=== PATIENT | female | born 1945 | race Caucasian/White ===

== ENCOUNTER → 2016-06-10 | Outpatient (CLI) | payer MEDICARE, OTHER ==
--- NOTE | 2016-06-10 14:49 | WOMENS IMAGING REPORT ---
EXAM DESCRIPTION: BONE DENSITY HIP/SPINE COMPLETED DATE/TIME: 06/10/2016 2:03 pm REASON FOR STUDY: M89.9, DISORDER OF THE BONE Z12.31 ENCNTR SCREEN MAMMOGRAM FOR MALIGNANT NEOPLASM OF PEGGY M89.9 DISORDER OF BONE, UNSPECIFIED COMPARISON: None. TECHNIQUE: Dual-Energy X-ray Absorptiometry (DEXA) of the AP Spine and Hip. LIMITATIONS: None. FINDINGS: LUMBAR SPINE: The bone mineral density (BMD) measured from L1-L4 in the AP projection correlates with a T-score of +2.5, which is normal as defined by the World Health Organization. Please note that the AP assessmen t includes vertebral body endplate sclerosis and sclerosis along the posterior elements HIP: The bone mineral density (BMD) measured in the left femoral neck at the hip correlates with a T-score of -1.0, which is osteopenic as defined by the World Health Organization. COMMENT: The World Health Organization defines low BMD as follows: T-score: Normal: Greater than -1.0 Osteopenia: Between -1.0 and -2.5 Osteoporosis: Less than -2.5 without fractures Established osteoporosis: Less than -2.5 with fractures In general, you may wish to consider: Diagnosis Treatment Follow-up DEXA Normal BMD Prevention 2-3 years Osteopenia Prevention/Therapy 1-2 years Osteoporosis Therapy Yearly TECHNICAL DOCUMENTATION: JOB ID: [id number] [employer]- All Rights Reserved
--- NOTE | 2016-06-10 15:17 | WOMENS IMAGING REPORT ---
EXAM DESCRIPTION: BILAT SCREENING MAMMO W/CAD COMPLETED DATE/TIME: 06/10/2016 2:04 pm REASON FOR STUDY: Z12.31, ROUTINE SCREENING MAMMO Z12.31 ENCNTR SCREEN MAMMOGRAM FOR MALIGNANT NEOP LASM OF PEGGY M89.9 DISORDER OF BONE, UNSPECIFIED COMPARISON: 2012 TECHNIQUE: Standard craniocaudal and mediolateral oblique views of each breast recorded using digita l acquisition. LIMITATIONS: None. FINDINGS: No masses, calcifications or architectural distortion. No areas of suspicion. Read with the assistance of CAD. .[facility] - R2 Cenova Version 1.3 .[facility] - R2 Cenova Version 1.3 .[facility] - R2 Cenova Version 2.4 .[facility] - R2 Cenova Version 2.4 .[facility] - R2 [employer] Version 9.2 BREAST DENSITY: b. There are scattered areas of fibroglandular density. BIRAD: 1 NEGATIVE RECOMMENDATION: ROUTINE SCREENING COMMENT: PATIENT NOTIFIED BY LETTER. The [employer] recommends an annual screening mammogram for women aged 40 years or over. Each patient will receive a reminder prior to the anniversary date of her mammogram. The [employer] (ACR) has developed recommendations for screening MRI of the breast s in certain patient populations, to be used in conjunction with mammography. Breast MRI surveillanc e may be appropriate for women with more than 20% lifetime risk of developing breast cancer as deter mined by genetic testing, significant family history of the disease, or history of mantle radiation f or Hodgkins Disease. ACR Practice Guidelines 2008. TECHNICAL DOCUMENTATION: FINDING NUMBER: (1) ASSESSMENT: (1) JOB ID: [id number] [employer]- All Rights Reserved
== END ==
LOC: WI 13:21
PROVIDERS: ATTEND Student in an Organized Health Care Education/Training Program
DX: Z12.31 Encounter for screening mammogram for malignant neoplasm of breast (principal); M89.9 Disorder of bone, unspecified
CPT/HCPCS: 77080; G0202; 77067

== ENCOUNTER → 2017-08-31 | Outpatient (CLI) | payer MEDICARE, OTHER ==
--- NOTE | 2017-09-01 10:29 | RADIOLOGY REPORT (SQ) ---
EXAM DESCRIPTION: LUMBAR SPINE COMPLETE COMPLETED DATE/TIME: 08/31/2017 5:35 pm REASON FOR STUDY: LOW BACK PAIN M54.5 LOW BACK PAIN COMPARISON: None. NUMBER OF VIEWS: Five views including obliques. TECHNIQUE: AP, lateral, oblique, and sacral radiographic images acquired of the lumbar spine. LIMITATIONS: None. FINDINGS: MINERALIZATION: Normal. SEGMENTATION: Normal. No transitional anatomy. ALIGNMENT: There is a very minimal lumbar scoliosis convexed to the left. VERTEBRAE: Maintained height. No fracture or worrisome bone lesion. DISCS: Multilevel disc space narrowing with osteophytes. POSTERIOR ELEMENTS: Pedicles and facets are intact. No pars defect or posterior arch defects. Facet arthropathy is present. HARDWARE: None in the spine. PARASPINAL SOFT TISSUES: Normal. PELVIS: Intact as visualized. No fractures or worrisome bone lesions. SI joints intact. OTHER: Vascular calcifications are identified in the abdominal aorta IMPRESSION: SPONDYLOSIS WITHOUT BONE LESION OR FRACTURE. TECHNICAL DOCUMENTATION: JOB ID: [id number] [employer]- All Rights Reserved Reading location - IP/workstation name: [email or web address]
--- NOTE | 2017-09-01 10:33 | RADIOLOGY REPORT (SQ) ---
EXAM DESCRIPTION: SACRUM AND COCCYX COMPLETED DATE/TIME: 08/31/2017 5:35 pm REASON FOR STUDY: LOW BACK PAIN M54.5 LOW BACK PAIN COMPARISON: None. NUMBER OF VIEWS: Three views. TECHNIQUE: AP, lateral, and tilt views of the sacrum and coccyx. LIMITATIONS: None. FINDINGS: MINERALIZATION: Normal. BONES: No acute fracture or dislocation. There is some mild bony sclerosis adjacent to the sacroilia c joints. SOFT TISSUES: No soft tissue swelling. No foreign body. OTHER: No other significant finding. IMPRESSION: There is some mi bony sclerosis adjacent to the SI joints bilaterally consistent with de generative changes. No other significant bony abnormalities were identified. Other findings as note d above TECHNICAL DOCUMENTATION: JOB ID: [id number] [employer]- All Rights Reserved Reading location - IP/workstation name: [email or web address]
== END ==
LOC: OD 16:28
PROVIDERS: ATTEND Student in an Organized Health Care Education/Training Program
DX: M54.5 Low back pain (principal); M47.896 Other spondylosis, lumbar region
CPT/HCPCS: 72110; 72220

== ENCOUNTER 2017-10-04 15:33 | Inpatient (IN) | payer MEDICARE, OTHER ==
[2017-10-04] MEDS ORDERED: DEXAMETHASONE SOD PHOS INJ 10 MG/1 ML VIAL IV ONE (16:21)
--- NOTE | 2017-10-04 16:28 | ER Document Report ---
ED Medical Screen (RME) - General Chief Complaint: Abnormal Lab Results Stated Complaint: ABNORMAL LABS Time Seen by Provider: 10/04/17 16:05 Information source: Patient, DrLeonel Office, [facility] Records, Outside Facility Records Notes: 72-year-old female presents after her oncologist who is concerned that there may be a new sacral mass. Dr Davis reports that the patient is experiencing worsening pain and has new neuro deficits. He is requesting MRI imaging of the lumbar spine. Patient did have a CAT scan yesterday. I have greeted and performed a rapid medical assessment of the patient. A comprehensive evaluation and assessment will be performed by another ED provider. Medical decision making, lab review/xrays if performed will be reviewed by the ED provider assuming care of the patient. PHYSICAL EXAMINATION: GENERAL: Well-appearing, well-nourished and in no acute distress. HEAD: Atraumatic, normocephalic. EYES: Pupils equal round extraocular movements intact, conjunctiva are normal. ENT: Nares patent NECK: Normal range of motion LUNGS: No respiratory distress Musculoskeletal: Limited range of motion secondary to pain NEUROLOGICAL: Normal speech, PSYCH: Normal mood, normal affect. SKIN: Warm, Dry, normal turgor, no rashes or lesions noted. TRAVEL OUTSIDE OF THE [place] IN LAST 30 DAYS: No - HPI Onset: Other Onset/Duration: Persistent, Worse Quality of pain: Burning Severity: Moderate Associated Symptoms: None Exacerbated by: Movement Relieved by: Denies Similar symptoms previously: Yes Recently seen / treated by doctor: Yes - Related Data Smoking: Non-smoker Frequency of alcohol use: None Drug Abuse: None Allergies/Adverse Reactions: No Known Allergies Allergy (Unverified 10/04/17 15:35) Past Medical History - Social History Chew tobacco use (# tins/day): No Frequency of alcohol use: None Drug Abuse: None Renal/ Medical History: Denies: Hx Peritoneal Dialysis Physical Exam - Vital signs Vitals: Temp Pulse Resp BP Pulse Ox 98.3 F 70 16 117/62 94 10/04/17 15:37 10/04/17 15:37 10/04/17 15:37 10/04/17 15:37 10/04/17 15:37 Course - Vital Signs Vital signs: Temp Pulse Resp BP Pulse Ox 98.3 F 70 16 117/62 94 10/04/17 15:37 10/04/17 15:37 10/04/17 15:37 10/04/17 15:37 10/04/17 15:37 - Laboratory Result Diagrams: 10/04/17 16:54 10/04/17 16:54 Doctor's Discharge - Discharge Referrals: KATHY LOPEZ MD [Primary Care Provider] - Follow up as needed
--- NOTE | 2017-10-04 16:57 | ER Document Report ---
ED General - General Chief Complaint: Abnormal Lab Results Stated Complaint: ABNORMAL LABS Time Seen by Provider: 10/04/17 16:05 Notes: The patient is a 72-year-old female, PMHx thyroidectomy, presents for worsening lower back pain over the past 2 days. She had an outpatient CT scan performed yesterday by her primary care physician that showed a disruptive lytic lesion involving the S1 vertebral body, which appears to be also involving the nerve roots at this level of the left side. She is supposed to see Dr. Humphries soon, but she was sent to the ER for an MRI of the spine and IV Decadron due to concern about possible cauda equina. Patient denies change in bowel or bladder , saddle anesthesia or back injury. Unsure of a primary source of cancer. TRAVEL OUTSIDE OF THE [place] IN LAST 30 DAYS: No - Related Data Allergies/Adverse Reactions: No Known Allergies Allergy (Unverified 10/04/17 15:35) Past Medical History - General Information source: Patient, Dr. Dale, [facility] Records, Outside Facility Records - Social History Smoking Status: Never Smoker Chew tobacco use (# tins/day): No Frequency of alcohol use: None Drug Abuse: None Family History: Reviewed & Not Pertinent Patient has suicidal ideation: No Patient has homicidal ideation: No Renal/ Medical History: Denies: Hx Peritoneal Dialysis Review of Systems - Review of Systems Notes: REVIEW OF SYSTEMS: CONSTITUTIONAL: -fevers, -chills EENT: -eye pain, -difficulty swallowing, -nasal congestion CARDIOVASCULAR: -chest pain, -syncope. RESPIRATORY: -cough, -SOB GASTROINTESTINAL: -abdominal pain, -nausea, -vomiting, -diarrhea GENITOURINARY: -dysuria, -hematuria MUSCULOSKELETAL: +back pain, -neck pain SKIN: -rash or skin lesions. HEMATOLOGIC: -easy bruising or bleeding. LYMPHATIC: +right neck with swollen, enlarged gland. NEUROLOGICAL: -altered mental status or loss of consciousness, -headache, + tingling down bilateral legs PSYCHIATRIC: -anxiety, -depression. ALL OTHER SYSTEMS REVIEWED AND NEGATIVE. Physical Exam - Vital signs Vitals: Temp Pulse Resp BP Pulse Ox 98.3 F 70 16 117/62 94 10/04/17 15:37 10/04/17 15:37 10/04/17 15:37 10/04/17 15:37 10/04/17 15:37 - Notes Notes: PHYSICAL EXAMINATION: GENERAL: Uncomfortable. HEAD: Atraumatic, normocephalic. EYES: Pupils equal round and reactive to light, extraocular movements intact, sclera anicteric, conjunctiva are normal. ENT: nares patent, oropharynx clear without exudates. Moist mucous membranes. NECK: Normal range of motion, supple with a non-tender right-sided anterior neck mass. LUNGS: Breath sounds clear to auscultation bilaterally and equal. No wheezes rales or rhonchi. HEART: Regular rate and rhythm without murmurs ABDOMEN: Soft, nontender, normoactive bowel sounds. No guarding, no rebound. No masses appreciated. EXTREMITIES: Normal range of motion, no pitting or edema. No cyanosis. Strong distal pulses. BACK: Tenderness over lower back. NEUROLOGICAL: Cranial nerves grossly intact. Normal speech. Normal motor exams. SKIN: Warm, Dry, normal turgor, no rashes or lesions noted. Course - Re-evaluation Re-evalutation: Patient presents with a few days of worsening lower back pain. An outpatient CT scan showed concern for a lytic lesion and possible cauda equina. Patient is not having any saddle anesthesia, urinary or bowel incontinence. MRI ordered , which shows extensive metastases in her sacrum, but no evidence of cauda equina. Unsure of a primary cancer, but patient has had a thyroidectomy and noticed a lump above her right clavicle. Spoke to patient and daughter about this diagnosis. They were provided a copy of the MRI report. 10/04/17 19:[address] Humphries. He will see patient as an outpatient or inpatient, depending on patient's preference. Patient is still in severe pain and would like to be admitted for further evaluation and treatment of her metastatic lesions and for pain control. Her PMD is Dr. Manzano. Dr. Humphries is requesting if CA125, CEA and CA19-9 could be added, as well as a soft tissue neck CT. CT Chest/A/P also ordered to assess for primary source of cancer. 10/04/17 19:[address] Yu and will admit patient as Inpatient to Medical floor for pain control for intractable back pain from new metastases. - Vital Signs Vital signs: Temp Pulse Resp BP Pulse Ox 98.3 F 70 11 L 130/58 H 94 10/04/17 15:37 10/04/17 15:37 10/04/17 22:00 10/04/17 21:01 10/04/17 22:00 - Laboratory Result Diagrams: 10/04/17 16:54 10/04/17 16:54 Laboratory results interpreted by me: 10/04/17 10/04/17 10/04/17 16:54 16:54 16:54 WBC 10.9 H Plt Count 476 H Potassium 5.1 H BUN 24 H Glucose 140 H Direct Bilirubin 0.5 H AST 40 H Alkaline Phosphatase 198 H Carcinoembryonic Ag 3.3 H - Diagnostic Test Radiology reviewed: Image reviewed, Reports reviewed Radiology results interpreted by me: MRI Lumbar Spine: 1. FAIRLY EXTENSIVE ABNORMAL MARROW SIGNAL AND MARROW REPLACEMENT IN THE UPPER SACRUM MOST CONSISTENT WITH METASTATIC INVOLVEMENT. 2. MULTILEVEL CHRONIC DEGENERATIVE CHANGES IN THE LUMBAR SPINE DESCRIBED. 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
[2017-10-04] MEDS ORDERED: HYDROCODONE/ACETAMINOPHEN 5-325 MG TABLET PO ONE (17:12)
[2017-10-04] MEDS ORDERED: DIAZEPAM 5 MG TABLET PO ONE (17:13)
[2017-10-04 17:30] LABS: ABSOLUTE BASOPHILS # (AUTO) 0.1 10^3/uL (0.0-0.2); ABSOLUTE EOSINOPHILS # (AUTO) 0.3 10^3/uL (0.0-0.6); ABSOLUTE LYMPHOCYTES (AUTO) 1.8 10^3/uL (0.5-4.7); ABSOLUTE MONOCYTES (AUTO) 0.4 10^3/uL (0.1-1.4); ABSOLUTE NEUT (AUTO) 8.2 10^3/uL (1.7-8.2); BASOPHILS % (AUTO) 0.6 % (0-2); EOSINOPHILS % (AUTO) 3.2 % (0-6); HEMATOCRIT 38.6 % (36.0-47.0); HEMOGLOBIN 13.1 g/dL (12.0-15.5); LYMPHOCYTES % (AUTO) 16.4 % (13-45); MEAN CORPUSCULAR HEMOGLOBIN 30.6 pg (27.0-33.4); MEAN CORPUSCULAR HGB CONC 33.9 g/dL (32.0-36.0); MEAN CORPUSCULAR VOLUME 90 fl (80-97); MONOCYTES % (AUTO) 4.1 % (3-13); PLATELET COUNT 476 10^3/uL (150-450); RED BLOOD COUNT 4.28 10^6/uL (3.72-5.28); RED CELL DISTRIBUTION WIDTH 13.7 % (11.5-14.0); SEGMENTED NEUTROPHILS % (AUTO) 75.7 % (42-78); TOTAL CELLS COUNTED % (AUTO) 100 %; WHITE BLOOD COUNT 10.9 10^3/uL (4.0-10.5)
[2017-10-04 17:44] LABS: ALANINE AMINOTRANSFERASE 30 U/L (9-52); ALBUMIN 4.2 g/dL (3.5-5.0); ALKALINE PHOSPHATASE 198 U/L (38-126); ANION GAP 16 (5-19); ASPARTATE AMINO TRANSFERASE 40 U/L (14-36); BILIRUBIN,DIRECT 0.5 mg/dL (0.0-0.4); BILIRUBIN,TOTAL 0.6 mg/dL (0.2-1.3); BLOOD UREA NITROGEN 24 mg/dL (7-20); CALCIUM 9.9 mg/dL (8.4-10.2); CARBON DIOXIDE 29 mmol/L (22-30); CHLORIDE 98 mmol/L (98-107); GLUCOSE 140 mg/dL (75-110); POTASSIUM 5.1 mmol/L (3.6-5.0); SODIUM 142.9 mmol/L (137-145); TOTAL PROTEIN 7.3 g/dL (6.3-8.2)
--- NOTE | 2017-10-04 19:14 | RADIOLOGY REPORT (SQ) ---
EXAM DESCRIPTION: MRI LUMBAR SPINE COMBO COMPLETED DATE/TIME: 10/04/2017 6:56 pm REASON FOR STUDY: concern for mets/ new neuro sx COMPARISON: None. TECHNIQUE: Sagittal and Axial imaging includes T1, T1 post gadolinium, T2, STIR and gradient echo se quences. Coronal T2/HASTE imaging. Additional coronal images acquired of the sacrum as well. CONTRAST TYPE AND DOSE: 20 mL Prohance. RENAL FUNCTION: GFR > 60. LIMITATIONS: None. FINDINGS: VISUALIZED UPPER ABDOMEN: Limited evaluation. No acute or suspicious findings suggested. SEGMENTATION: No transitional anatomy. The lowest well-developed disc space is labeled L5-S1. ALIGNMENT: Grade 1 anterolisthesis of L 3 on L4. Mild S-shaped scoliosis. VERTEBRAE: Intact. No fractures. BONE MARROW: There is abnormal marrow signal involving the upper sacrum with decreased signal on T1, increased signal on T2 and STIR, and contrast enhancement. DISC SIGNAL: Decreased height and signal. POSTERIOR ELEMENTS: Generally intact. No pars defect evident. HARDWARE: None in the spine. CORD AND CONUS: Normal in size and signal intensity. Conus at the appropriate level. SOFT TISSUES: No aortic aneurysm seen. No bulky retroperitoneal adenopathy or mass. No paraspinal mas s or fluid. L1-L2: Diffuse posterior annular disc bulge with small left paracentral disc protrusion. Moderate fa cet arthropathy. Mild spinal stenosis and exit foraminal stenosis, worse on the left. L2-L3: Minimal diffuse posterior disc bulge. Moderate facet arthropathy, worse on the left. Mild to moderate left lateral recess stenosis and mild exit foraminal stenosis. L3-L4: Mild diffuse posterior annular disc bulge. Severe facet arthropathy. Moderate to severe spin al stenosis and exit foraminal stenosis, partially due to anterolisthesis. L4-L5: Mild diffuse posterior disc bulge. Severe facet arthropathy, worse on the right. Mild to mod erate spinal stenosis and moderate to severe right exit foraminal stenosis. L5-S1: Mild posterior disc bulge. No significant spinal stenosis. Mild exit foraminal stenosis. LOWER THORACIC: Incompletely imaged. No stenosis seen. SACRUM: Visualized upper sacrum intact. ENHANCEMENT: No abnormal enhancement. OTHER: No other significant findings. IMPRESSION: 1. FAIRLY EXTENSIVE ABNORMAL MARROW SIGNAL AND MARROW REPLACEMENT IN THE UPPER SACRUM MOST CONSISTENT WITH METASTATIC INVOLVEMENT. 2. MULTILEVEL CHRONIC DEGENERATIVE CHANGES IN THE LUMBAR SPINE DESCRIBED. TECHNICAL DOCUMENTATION: JOB ID: [id number] [employer]- All Rights Reserved Reading location - IP/workstation name: [email or web address]
[2017-10-04] MEDS ORDERED: KETOROLAC TROMETHAMINE INJ/PF 30 MG/1 ML SDV IV ONE (19:31)
[2017-10-04] MEDS ORDERED: HYDROMORPHONE HCL INJ/PF 2 MG/ML AMPULE IV ONE (19:31)
[2017-10-04] MEDS ORDERED: ONDANSETRON HCL INJ/PF 4 MG/2 ML SDV IV PRN (20:03)
[2017-10-04] MEDS ORDERED: GLUCAGON,HUMAN RECOMB 1 MG INJ IM PRN (20:22)
[2017-10-04] MEDS ORDERED: DEXTROSE 40% GEL 15 GM TUBE PO PRN ×2 (20:22)
[2017-10-04] MEDS ORDERED: DEXTROSE 50%-WATER 25 GM/50 ML DISP.SYRIN IV PRN ×2 (20:22)
--- NOTE | 2017-10-04 20:33 | PDOC H&P ---
History of Present Illness Admission Date/PCP: KATHY LOPEZ MD History of Present Illness: BELLO DIAZ is a 72 year old female patient with past medical history of hypertension, diabetes mellitus, hypothyroidism, obesity presented with chief complaint of back pain. Patient reported as she started to have back pain since last Easter in the last several days it becomes increasingly worse. Patient has history of thyroidectomy which happened 10 years ago and reportedly the biopsy was negative for malignancy. Her MRI of the spine which is done today reported as followed fairly extensive abnormal marrow signal and marrow replacement in the upper sacrum most consistent with metastatic involvement. Patient also endorses unintentional weight loss of 14 pound last 2 weeks. She denied any abdominal pain or any change in her bowel habits, hematochezia or melanotic stool. No nausea, vomiting, diarrhea, fever, chills, cough, chest pain or urinary complaints. Past Medical History Cardiac Medical History: Reports: Hypertension Endocrine Medical History: Reports: Diabetes Mellitus Type 2 Past Surgical History Past Surgical History: Reports: Cholecystectomy, Orthopedic Surgery Social History Smoking Status: Never Smoker Frequency of Alcohol Use: None Drugs: None - Advance Directive Resuscitation Status: Full Code Family History Family History: Reviewed & Not Pertinent Parental Family History Reviewed: Yes Children Family History Reviewed: Yes Sibling(s) Family History Reviewed.: Yes Medication/Allergy Allergies/Adverse Reactions: No Known Allergies Allergy (Unverified 10/04/17 15:35) Review of Systems Constitutional: PRESENT: as per HPI Eyes: PRESENT: as per HPI Ears: PRESENT: as per HPI Cardiovascular: ABSENT: chest pain, dyspnea on exertion, edema, orthropnea, palpitations Respiratory: ABSENT: cough, hemoptysis Gastrointestinal: ABSENT: abdominal pain, constipation, diarrhea, hematemesis, hematochezia, nausea, vomiting Neurological: ABSENT: abnormal gait, abnormal speech, confusion, dizziness, focal weakness, syncope Physical Exam Vital Signs: Temp Pulse Resp BP Pulse Ox 98.3 F 70 16 117/62 94 10/04/17 15:37 10/04/17 15:37 10/04/17 15:37 10/04/17 15:37 10/04/17 15:37 Intake & Output 10/03/17 10/04/17 10/05/17 06:59 06:59 06:59 Weight 92.533 kg General appearance: PRESENT: mild distress Head exam: PRESENT: atraumatic, normocephalic Eye exam: PRESENT: conjunctiva pink, EOMI, PERRLA. ABSENT: scleral icterus Respiratory exam: PRESENT: clear to auscultation honey. ABSENT: rales, rhonchi, wheezes GI/Abdominal exam: PRESENT: other - Obese abdomen Neurological exam: PRESENT: alert, awake, oriented to time, oriented to situation Results Laboratory Results: 10/04/17 16:54 10/04/17 16:54 10/04/17 10/04/17 16:54 16:54 WBC 10.9 H RBC 4.28 Hgb 13.1 Hct 38.6 MCV 90 MCH 30.6 MCHC 33.9 RDW 13.7 Plt Count 476 H Seg Neutrophils % 75.7 Lymphocytes % 16.4 Monocytes % 4.1 Eosinophils % 3.2 Basophils % 0.6 Absolute Neutrophils 8.2 Absolute Lymphocytes 1.8 Absolute Monocytes 0.4 Absolute Eosinophils 0.3 Absolute Basophils 0.1 Sodium 142.9 Potassium 5.1 H Chloride 98 Carbon Dioxide 29 Anion Gap 16 BUN 24 H Creatinine 0.73 Est GFR ( Amer) > 60 Est GFR (Non-Af Amer) > 60 Glucose 140 H Calcium 9.9 Total Bilirubin 0.6 AST 40 H ALT 30 Alkaline Phosphatase 198 H Total Protein 7.3 Albumin 4.2 Impressions: Lumbar Spine MRI 10/04/17 16:21 IMPRESSION: 1. FAIRLY EXTENSIVE ABNORMAL MARROW SIGNAL AND MARROW REPLACEMENT IN THE UPPER SACRUM MOST CONSISTENT WITH METASTATIC INVOLVEMENT. 2. MULTILEVEL CHRONIC DEGENERATIVE CHANGES IN THE LUMBAR SPINE DESCRIBED. Assessment & Plan - Diagnosis (1) Intractable back pain Is this a current diagnosis for this admission?: Yes Plan: Patient has been started on Percocet for breakthrough pain and she is has been also started on fentanyl patch. (2) Hypertension Qualifiers: Hypertension type: essential hypertension Qualified Code(s): I10 - Essential (primary) hypertension Is this a current diagnosis for this admission?: Yes Plan: Continue her home medication (3) Diabetes mellitus Qualifiers: Diabetes mellitus type: type 2 Is this a current diagnosis for this admission?: Yes Plan: Hold metformin and start her on sliding scale. - Time Time Spent: 30 to 50 Minutes Critical Time spent with patient: 25-34 minutes
[2017-10-04] MEDS ORDERED: MORPHINE SULFATE 10 MG/ML INJ IV PRN (20:36)
--- NOTE | 2017-10-04 20:49 | RADIOLOGY REPORT (SQ) ---
EXAM DESCRIPTION: CT ABD/PELVIS WITH IV ONLY COMPLETED DATE/TIME: 10/04/2017 8:35 pm REASON FOR STUDY: search for primary cancer COMPARISON: None. TECHNIQUE: CT scan of the abdomen and pelvis performed using helical scanning technique with dynamic intravenous contrast injection. No oral contrast. Images reviewed with lung, soft tissue, and bone windows. Reconstructed coronal and sagittal MPR images reviewed. Delayed images for evaluation of the urinary system also acquired. All images stored on PACS. All CT scanners at this facility use dose modulation, iterative reconstruction, and/or weight based d osing when appropriate to reduce radiation dose to as low as reasonably achievable (ALARA). [facility]: Dose Right [facility]: CareDose [facility]: Dose Right [facility]: Teradose 4D [facility]: Juxta Labs CONTRAST TYPE AND DOSE: contrast/concentration: Isovue 370.00 mg/ml; Total Contrast Delivered: 100.0 ml; Total Saline Delivered: 72.0 ml RENAL FUNCTION: BUN 24 creatinine 0.73. RADIATION DOSE: CT Rad equipment meets quality standard of care and radiation dose reduction techniq ues were employed. CTDIvol: 16.5 - 21.1 mGy. DLP: 2555 mGy-cm.. LIMITATIONS: None. FINDINGS: LOWER CHEST: No significant findings. No nodules or infiltrates. LIVER: Normal size. No masses. No dilated ducts. SPLEEN: Normal size. 2.3 cm low-attenuation lesion. PANCREAS: No masses. No significant calcifications. No adjacent inflammation or peripancreatic fluid collections. Pancreatic duct not dilated. GALLBLADDER: Surgically absent. ADRENAL GLANDS: No significant masses or asymmetry. RIGHT KIDNEY AND URETER: Areas of cortical scarring. Calyceal calculus. No solid masses. No signi ficant calcifications. No hydronephrosis or hydroureter. LEFT KIDNEY AND URETER: Areas of cortical scarring. No solid masses. No significant calcifications . No hydronephrosis or hydroureter. AORTA AND VESSELS: No aneurysm. No dissection. Renal arteries, SMA, celiac without stenosis. RETROPERITONEUM: No retroperitoneal adenopathy, hemorrhage or masses. BOWEL AND PERITONEAL CAVITY: No masses or inflammatory changes. No free fluid or peritoneal masses. APPENDIX: Normal. PELVIS: No mass. No free fluid. Normal bladder. ABDOMINAL WALL: No masses. No hernias. BONES: Degenerative changes in the lumbar spine. Patchy lucencies in the sacrum. OTHER: No other significant finding. IMPRESSION: 1. CORTICAL SCARRING IN THE KIDNEYS. NONOBSTRUCTING CALYCEAL CALCULUS IN THE RIGHT KIDNEY. 2. LOW-ATTENUATION LESION IN THE SPLEEN MOST LIKELY DUE TO A HEMANGIOMA. METASTATIC LESION WOULD BE LESS COMMON BUT NOT EXCLUDED. 3. FINDINGS IN THE LUMBAR SPINE AND SACRUM EVALUATED WITH SEPARATE MRI. 4. NO OTHER SIGNIFICANT FINDINGS IN THE ABDOMEN OR PELVIS. TECHNICAL DOCUMENTATION: JOB ID: [id number] Quality ID # [id number]: Final reports with documentation of one or more dose reduction techniques (e.g., Au tomated exposure control, adjustment of the mA and/or kV according to patient size, use of iterative reconstruction technique) 2010 [employer]- All Rights Reserved Reading location - IP/workstation name: [email or web address]
[2017-10-04] MEDS ORDERED: ENOXAPARIN SODIUM INJ 40 MG/0.4 ML DISP.SYRIN SUBCUT ONE (21:00)
[2017-10-04] MEDS ORDERED: FENTANYL 50 MCG/HR PATCH.TD72 TD ONE (21:00)
--- NOTE | 2017-10-04 21:11 | RADIOLOGY REPORT (SQ) ---
EXAM DESCRIPTION: CT CHEST WITH COMPLETED DATE/TIME: 10/04/2017 8:35 pm REASON FOR STUDY: search for primary cancer COMPARISON: None. TECHNIQUE: CT scan of the chest performed using helical scanning technique with dynamic intravenous contrast injection. Images reviewed with lung, soft tissue and bone windows. Reconstructed coronal and sagittal MPR images reviewed. All images stored on PACS. All CT scanners at this facility use dose modulation, iterative reconstruction, and/or weight based d osing when appropriate to reduce radiation dose to as low as reasonably achievable (ALARA). [facility]: Dose Right [facility]: CareDose [facility]: Dose Right [facility]: Teradose 4D [facility]: Ensogo CONTRAST TYPE AND DOSE: 100 mL Isovue 370- low osmolar. RENAL FUNCTION: BUN 24 creatinine 0.73. RADIATION DOSE: . LIMITATIONS: None. FINDINGS: LUNGS AND PLEURA: No opacities, nodules, masses. No pneumothorax. No effusions. HILAR AND MEDIASTINAL STRUCTURES: No identified masses or abnormal nodes. HEART AND VASCULAR STRUCTURES: No aneurysm or dissection. No central pulmonary emboli. No pericardi al effusion. HARDWARE: None in the chest. UPPER ABDOMEN: No significant findings. Limited exam. SOFT TISSUES: No masses. No adenopathy. BONES: No significant finding. OTHER: No other significant finding. IMPRESSION: NORMAL CT OF THE CHEST WITH IV CONTRAST. TECHNICAL DOCUMENTATION: JOB ID: [id number] Quality ID # [id number]: Final reports with documentation of one or more dose reduction techniques (e.g., Au tomated exposure control, adjustment of the mA and/or kV according to patient size, use of iterative reconstruction technique) 2010 [employer]- All Rights Reserved Reading location - IP/workstation name: [email or web address]
--- NOTE | 2017-10-04 21:12 | RADIOLOGY REPORT (SQ) ---
EXAM DESCRIPTION: CT SOFT TISSUE NECK WITH COMPLETED DATE/TIME: 10/04/2017 8:35 pm REASON FOR STUDY: neck mass COMPARISON: None. TECHNIQUE: Post IV contrasted scanning from skull base through lung apices with review of bone, soft tissue and lung windows. Reconstructed coronal and sagittal MPR images reviewed. All images stored on PACS. All CT scanners at this facility use dose modulation, iterative reconstruction, and/or weight based d osing when appropriate to reduce radiation dose to as low as reasonably achievable (ALARA). [facility]: Dose Right [facility]: CareDose [facility]: Dose Right [facility]: Teradose 4D [facility]: Myoonet CONTRAST TYPE AND DOSE: 100 mL Isovue 370- low osmolar. RENAL FUNCTION: BUN 24 creatinine 0.73. RADIATION DOSE: . LIMITATIONS: None. FINDINGS: SKULL BASE: Intact. MAJOR SALIVARY GLANDS: No solid or cystic masses. No inflammatory changes. LYMPHADENOPATHY: No adenopathy. MUCOSAL MASSES OR ASYMMETRY: No mucosal masses or asymmetry. LARYNX/CORDS: No abnormal findings. VASCULAR STRUCTURES: The major vessels are patent. LUNG APICES: Clear. BONES: Intact. THYROID: Essentially no thyroid tissue visualized. PARANASAL SINUSES: Clear. OTHER: No other significant finding. IMPRESSION: ESSENTIALLY NO THYROID TISSUE VISUALIZED, EITHER MARKEDLY ATROPHIC OR SURGICALLY ABSENT. NO OTHER SIGNIFICANT FINDING IN THE SOFT TISSUES OF THE NECK. TECHNICAL DOCUMENTATION: JOB ID: [id number] Quality ID # [id number]: Final reports with documentation of one or more dose reduction techniques (e.g., Au tomated exposure control, adjustment of the mA and/or kV according to patient size, use of iterative reconstruction technique) 2010 [employer]- All Rights Reserved Reading location - IP/workstation name: [email or web address]
[2017-10-05] MEDS: OXYCODONE-ACETAMINOPHEN 5-325 MG TABLET PO PRN ×2 (08:34→14:33)
--- NOTE | 2017-10-05 08:52 | PDOC CONSULTATION ---
Consultation Consult Date: 10/05/17 Attending physician:: YULIYA OMALLEY Consult reason:: concern of sacral lesion, severe pain History of Present Illness Admission Date/PCP: 10/04/17 22:26 KATHY LOPEZ MD Patient complains of: severe LBP History of Present Illness: BELLO DIAZ is a 72 year old female with known hx of severe DJD, back issues , presents w/ increasing LBP. She feels it started after easter, became severe enough to do lumbar xray, multiple areas of degeneration noted, but no acute findings, over last 3-4 weeks severe increasing LBP. Mostly sacral with radiation down L leg w/ numbness now, incontinence somewhat worsened though urinary incontinence has been longstanding issue for last 2-[address] done at outpt, [facility], Dr. Kothari's office, indicated sarcal abnormality, recommended MRI. Pt severely clostrophobic, was also have severe intractable pain so pt sent to ED, for further eval, in ED had MRI lumbar spine , shows abnormal marrow in sacrum, I ordered CT N/C/A/P looking for a primary lesion, this all was negative. Of note, on PE, I saw a large L lateral thigh mass about 8-9cm that is tender to touch. She does not have any hx of fall. Labs thus far unremarkable except for elev alk phos. Myeloma w/u is pending Past Medical History Cardiac Medical History: Reports: Myocardial Infarction, Hypertension Pulmonary Medical History: Reports: Pneumonia Endocrine Medical History: Reports: Diabetes Mellitus Type 2, Hypothyroidism GI Medical History: Reports: Gastroesophageal Reflux Disease Musculoskeltal Medical History: Reports: Arthritis Past Surgical History Past Surgical History: Reports: Cholecystectomy, Orthopedic Surgery - back surgery, Other - KENISHA/L oopherectomy, bladder sling, b/l hand surgery, R knee replacement Social History Information Source: Patient Smoking Status: Never Smoker Frequency of Alcohol Use: None Drugs: None - Advance Directive Resuscitation Status: Full Code Family History Family History: Reviewed & Not Pertinent Parental Family History Reviewed: Yes Children Family History Reviewed: Yes Sibling(s) Family History Reviewed.: Yes Medication/Allergy Allergies/Adverse Reactions: No Known Allergies Allergy (Unverified 10/04/17 15:35) Review of Systems Constitutional: ABSENT: chills, fever(s), headache(s), weight gain, weight loss Eyes: ABSENT: visual disturbances Ears: ABSENT: hearing changes Cardiovascular: ABSENT: chest pain, dyspnea on exertion, edema, orthropnea, palpitations Respiratory: ABSENT: cough, hemoptysis Gastrointestinal: ABSENT: abdominal pain, constipation, diarrhea, hematemesis, hematochezia, nausea, vomiting Genitourinary: ABSENT: dysuria, hematuria Musculoskeletal: PRESENT: back pain Integumentary: ABSENT: rash, wounds Neurological: ABSENT: abnormal gait, abnormal speech, confusion, dizziness, focal weakness, syncope Psychiatric: ABSENT: anxiety, depression, homidical ideation, suicidal ideation Endocrine: ABSENT: cold intolerance, heat intolerance, polydipsia, polyuria Hematologic/Lymphatic: ABSENT: easy bleeding, easy bruising Physical Exam Vital Signs: Temp Pulse Resp BP Pulse Ox 98.7 F 70 14 120/58 L 96 10/04/17 23:01 10/04/17 15:37 10/04/17 23:01 10/04/17 23:01 10/04/17 23:01 Intake & Output 10/04/17 10/05/17 10/06/17 06:59 06:59 06:59 Intake Total 210 Balance 210 Weight 92.5 kg General appearance: PRESENT: no acute distress, well-developed, well-nourished Head exam: PRESENT: atraumatic, normocephalic Eye exam: PRESENT: conjunctiva pink, EOMI, PERRLA. ABSENT: scleral icterus Ear exam: PRESENT: normal external ear exam Mouth exam: PRESENT: moist, tongue midline Neck exam: ABSENT: carotid bruit, JVD, lymphadenopathy, thyromegaly Respiratory exam: PRESENT: clear to auscultation honey. ABSENT: rales, rhonchi, wheezes Cardiovascular exam: PRESENT: RRR. ABSENT: diastolic murmur, rubs, systolic murmur Pulses: PRESENT: normal dorsalis pedis pul Vascular exam: PRESENT: normal capillary refill GI/Abdominal exam: PRESENT: normal bowel sounds, soft. ABSENT: distended, guarding, mass, organolmegaly, rebound, tenderness Rectal exam: PRESENT: deferred Extremities exam: PRESENT: full ROM. ABSENT: calf tenderness, clubbing, pedal edema Neurological exam: PRESENT: alert, awake, oriented to person, oriented to place , oriented to time, oriented to situation, CN II-XII grossly intact. ABSENT: motor sensory deficit Psychiatric exam: PRESENT: appropriate affect, normal mood. ABSENT: homicidal ideation, suicidal ideation Skin exam: PRESENT: dry, intact, warm. ABSENT: cyanosis, rash Results Laboratory Results: 10/05/17 04:02 TSH 0.33 L Impressions: Lumbar Spine MRI 10/04/17 16:21 IMPRESSION: 1. FAIRLY EXTENSIVE ABNORMAL MARROW SIGNAL AND MARROW REPLACEMENT IN THE UPPER SACRUM MOST CONSISTENT WITH METASTATIC INVOLVEMENT. 2. MULTILEVEL CHRONIC DEGENERATIVE CHANGES IN THE LUMBAR SPINE DESCRIBED. Abdomen/Pelvis CT 10/04/17 19:35 IMPRESSION: 1. CORTICAL SCARRING IN THE KIDNEYS. NONOBSTRUCTING CALYCEAL CALCULUS IN THE RIGHT KIDNEY. 2. LOW-ATTENUATION LESION IN THE SPLEEN MOST LIKELY DUE TO A HEMANGIOMA. METASTATIC LESION WOULD BE LESS COMMON BUT NOT EXCLUDED. 3. FINDINGS IN THE LUMBAR SPINE AND SACRUM EVALUATED WITH SEPARATE MRI. 4. NO OTHER SIGNIFICANT FINDINGS IN THE ABDOMEN OR PELVIS. Chest CT 10/04/17 19:35 IMPRESSION: NORMAL CT OF THE CHEST WITH IV CONTRAST. Soft Tissue Neck CT 10/04/17 19:35 IMPRESSION: ESSENTIALLY NO THYROID TISSUE VISUALIZED, EITHER MARKEDLY ATROPHIC OR SURGICALLY ABSENT. NO OTHER SIGNIFICANT FINDING IN THE SOFT TISSUES OF THE NECK. 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 B/c pt is having L thigh mass , U/s was ordered, myeloma labs pending (2) Pain, cancer Is this a current diagnosis for this admission?: Yes Plan: Fentanyl patch added, cont oxycodone prn and morphine IV prn also. - Time Time Spent: Greater than 70 Minutes - Inpatient Certification Based on my medical assessment, after consideration of the patient's comorbidities, presenting symptoms, or acuity I expect that the services needed warrant INPATIENT care.: Yes I certify that my determination is in accordance with my understanding of Medicare's requirements for reasonable and necessary INPATIENT services [42 CFR 412.3e].: Yes Medical Necessity: Need for Pain Control, Need for Surgery
[2017-10-05] MEDS: ENOXAPARIN SODIUM INJ 40 MG/0.4 ML DISP.SYRIN SUBCUT SCH (10:02)
[2017-10-05] MEDS ORDERED: LEVOTHYROXINE SODIUM 137 MCG PO SCH (14:45)
[2017-10-05] MEDS ORDERED: (PENDING PHARMACY ID) (Pravastatin Sodium [Pravachol] 40 MG) PO SCH (14:45)
--- NOTE | 2017-10-05 15:01 | PDOC PROGRESS REPORT ---
Subjective Progress Note for:: 10/05/17 Subjective:: 72-year-old female with past medical history of Severe degenerative joint disease, low back pain Diabetes Hypertension Hypothyroidism status post total thyroidectomy for multinodular goiter Gastroesophageal reflux disease She presented to the hospital with increasing low back pain radiating down the left leg over the past 3-4 weeks. MRI of the lumbosacral spine showed abnormal marrow signal and marrow replacement in the upper sacrum. She was found to have an 8 x 10 cm firm tender mass in her left upper thigh. Serum protein electrophoresis, leukemia lymphoma panel and immunofixation as well as free kappa and lambda quantitative pending. Bone scan ordered due to concern for possible sacral fracture secondary to osteoporosis. Ultrasound of the left upper thigh mass ordered. This is also pending. CT of the soft tissue of the neck, chest abdomen and pelvis unremarkable. She was started on analgesics including fentanyl patch and Percocet for pain control. Reason For Visit: INTRACTABLE BACK PAIN Physical Exam Vital Signs: Temp Pulse Resp BP Pulse Ox 98.8 F 106 H 16 155/86 H 96 10/05/17 11:40 10/05/17 11:40 10/05/17 11:40 10/05/17 11:40 10/05/17 11:40 Intake & Output 10/04/17 10/05/17 10/06/17 06:59 06:59 06:59 Intake Total 210 Balance 210 Weight 92.5 kg General appearance: PRESENT: no acute distress Head exam: PRESENT: normocephalic Eye exam: ABSENT: scleral icterus Ear exam: PRESENT: normal external ear exam Mouth exam: PRESENT: moist Neck exam: ABSENT: tenderness, tracheal deviation Respiratory exam: PRESENT: clear to auscultation honey, symmetrical, unlabored Cardiovascular exam: PRESENT: RRR GI/Abdominal exam: PRESENT: normal bowel sounds, soft. ABSENT: tenderness Rectal exam: PRESENT: deferred Gentrourinary exam: ABSENT: indwelling catheter Extremities exam: ABSENT: pedal edema Musculoskeletal exam: PRESENT: other - L upper thigh 8x10 cm tender firm mass with no color chages of the overlying skin Psychiatric exam: PRESENT: appropriate affect Results Laboratory Results: 10/05/17 04:02 TSH 0.33 L Impressions: Lumbar Spine MRI 10/04/17 16:21 IMPRESSION: 1. FAIRLY EXTENSIVE ABNORMAL MARROW SIGNAL AND MARROW REPLACEMENT IN THE UPPER SACRUM MOST CONSISTENT WITH METASTATIC INVOLVEMENT. 2. MULTILEVEL CHRONIC DEGENERATIVE CHANGES IN THE LUMBAR SPINE DESCRIBED. Abdomen/Pelvis CT 10/04/17 19:35 IMPRESSION: 1. CORTICAL SCARRING IN THE KIDNEYS. NONOBSTRUCTING CALYCEAL CALCULUS IN THE RIGHT KIDNEY. 2. LOW-ATTENUATION LESION IN THE SPLEEN MOST LIKELY DUE TO A HEMANGIOMA. METASTATIC LESION WOULD BE LESS COMMON BUT NOT EXCLUDED. 3. FINDINGS IN THE LUMBAR SPINE AND SACRUM EVALUATED WITH SEPARATE MRI. 4. NO OTHER SIGNIFICANT FINDINGS IN THE ABDOMEN OR PELVIS. Chest CT 10/04/17 19:35 IMPRESSION: NORMAL CT OF THE CHEST WITH IV CONTRAST. Soft Tissue Neck CT 10/04/17 19:35 IMPRESSION: ESSENTIALLY NO THYROID TISSUE VISUALIZED, EITHER MARKEDLY ATROPHIC OR SURGICALLY ABSENT. NO OTHER SIGNIFICANT FINDING IN THE SOFT TISSUES OF THE NECK. Assessment & Plan - Diagnosis (1) Mass of left thigh Is this a current diagnosis for this admission?: Yes Plan: Us pending (2) Diabetes mellitus Qualifiers: Diabetes mellitus type: type 2 Is this a current diagnosis for this admission?: Yes Plan: Insulin sliding scale, OHA on hold (3) Hypertension Qualifiers: Hypertension type: essential hypertension Qualified Code(s): I10 - Essential (primary) hypertension Is this a current diagnosis for this admission?: Yes Plan: Resume outpatient meds (4) Intractable back pain Is this a current diagnosis for this admission?: Yes Plan: Analgesics, work up underway as noted above. - Time Time Spent with patient: 35 or more minutes
--- NOTE | 2017-10-05 15:46 | RADIOLOGY REPORT (SQ) ---
EXAM DESCRIPTION: U/S EXTREMITY NONVASCULAR COMP COMPLETED DATE/TIME: 10/05/2017 3:25 pm REASON FOR STUDY: soft tissue mass COMPARISON: None. TECHNIQUE: Dynamic and static grayscale images acquired of the localized site of clinical concern an d recorded on PACS. Additional selected color Doppler and spectral images recorded. SITE OF CONCERN: Left lateral thigh LIMITATIONS: None. FINDINGS: SKIN AND SUBCUTANEOUS TISSUES: No masses. No fluid collections. No edema. No foreign manasa s. DEEP SOFT TISSUES/MUSCLES: No masses. No fluid collections. No edema. VASCULAR: No increased or decreased vascularity. No occlusions. OTHER: No other significant finding. IMPRESSION: No discrete mass is identified. The possibility of a lipoma cannot be excluded. Clinic al correlation is recommended. TECHNICAL DOCUMENTATION: JOB ID: [id number] [employer]- All Rights Reserved Reading location - IP/workstation name: [email or web address]
[2017-10-05] MEDS: DOCUSATE SODIUM 100 MG CAPSULE PO SCH (17:25)
[2017-10-05] MEDS: GABAPENTIN 400 MG CAPSULE PO SCH ×2 (17:25→21:41)
[2017-10-05] MEDS: AMLODIPINE BESYLATE 10 MG TABLET PO SCH (17:26)
[2017-10-05] MEDS: ASPIRIN 81 MG TABLET, CHEWABLE PO SCH (17:26)
[2017-10-05] MEDS: METOPROLOL TARTRATE 100 MG TABLET PO SCH (17:26)
[2017-10-05] MEDS: QUETIAPINE FUMARATE 25 MG TABLET PO SCH (17:26)
[2017-10-05] MEDS ORDERED: OXYCODONE HCL IR 5 MG TABLET PO PRN (17:29)
[2017-10-05] MEDS ORDERED: OXYCODONE-ACETAMINOPHEN 5-325 MG TABLET PO PRN (17:30)
[2017-10-05] MEDS: OXYCODONE HCL IR 5 MG TABLET PO PRN (17:59)
[2017-10-05] MEDS ORDERED: LANSOPRAZOLE 15 MG TAB.RAP.DR PO ONE (18:00)
[2017-10-05] MEDS ORDERED: FENTANYL 50 MCG/HR PATCH.TD72 TD ONE (18:00)
[2017-10-05] MEDS: CYCLOBENZAPRINE HCL 10 MG TABLET PO PRN (21:37)
[2017-10-05] MEDS: ATORVASTATIN CALCIUM 10 MG TABLET PO SCH (21:40)
[2017-10-05] MEDS: CLONIDINE HCL 0.2 MG TABLET PO SCH (21:41)
[2017-10-06] MEDS: LEVOTHYROXINE SODIUM 0.025 MG TABLET PO SCH (06:32)
[2017-10-06] MEDS: LEVOTHYROXINE SODIUM 0.112 MG TABLET PO SCH (06:32)
[2017-10-06] MEDS: LANSOPRAZOLE 15 MG TAB.RAP.DR PO SCH (06:32)
[2017-10-06] MEDS: MELOXICAM 7.5 MG TABLET PO SCH (07:45)
[2017-10-06] MEDS: OXYCODONE HCL IR 5 MG TABLET PO PRN (07:53)
--- NOTE | 2017-10-06 08:39 | PDOC PROGRESS REPORT ---
Subjective Progress Note for:: 10/06/17 Subjective:: No acute events overnight, still w/ considerable pain, discussed increasing fentanyl w/ pt and increased dose to 75 today. Discussed U/S w/ radiology, no soft tissue mass noted on U/S but something is palpable. Await bone scan. Reason For Visit: INTRACTABLE BACK PAIN Physical Exam Vital Signs: Temp Pulse Resp BP Pulse Ox 98.5 F 72 19 135/57 H 96 10/06/17 08:00 10/06/17 08:00 10/06/17 08:00 10/06/17 08:00 10/06/17 08:00 Intake & Output 10/05/17 10/06/17 10/07/17 06:59 06:59 06:59 Intake Total 210 888 Balance 210 888 Weight 92.5 kg 95.1 kg General appearance: PRESENT: mild distress Head exam: PRESENT: atraumatic, normocephalic Eye exam: PRESENT: conjunctiva pink, EOMI, PERRLA. ABSENT: scleral icterus Ear exam: PRESENT: normal external ear exam Mouth exam: PRESENT: moist, tongue midline Neck exam: ABSENT: carotid bruit, JVD, lymphadenopathy, thyromegaly Respiratory exam: PRESENT: clear to auscultation honey. ABSENT: rales, rhonchi, wheezes Cardiovascular exam: PRESENT: RRR. ABSENT: diastolic murmur, rubs, systolic murmur Pulses: PRESENT: normal dorsalis pedis pul Vascular exam: PRESENT: normal capillary refill GI/Abdominal exam: PRESENT: normal bowel sounds, soft. ABSENT: distended, guarding, mass, organolmegaly, rebound, tenderness Rectal exam: PRESENT: deferred Extremities exam: PRESENT: full ROM. ABSENT: calf tenderness, clubbing, pedal edema Neurological exam: PRESENT: alert, awake, oriented to person, oriented to place , oriented to time, oriented to situation, CN II-XII grossly intact. ABSENT: motor sensory deficit Psychiatric exam: PRESENT: appropriate affect, normal mood. ABSENT: homicidal ideation, suicidal ideation Skin exam: PRESENT: dry, intact, warm. ABSENT: cyanosis, rash Results Impressions: Lumbar Spine MRI 10/04/17 16:21 IMPRESSION: 1. FAIRLY EXTENSIVE ABNORMAL MARROW SIGNAL AND MARROW REPLACEMENT IN THE UPPER SACRUM MOST CONSISTENT WITH METASTATIC INVOLVEMENT. 2. MULTILEVEL CHRONIC DEGENERATIVE CHANGES IN THE LUMBAR SPINE DESCRIBED. Abdomen/Pelvis CT 10/04/17 19:35 IMPRESSION: 1. CORTICAL SCARRING IN THE KIDNEYS. NONOBSTRUCTING CALYCEAL CALCULUS IN THE RIGHT KIDNEY. 2. LOW-ATTENUATION LESION IN THE SPLEEN MOST LIKELY DUE TO A HEMANGIOMA. METASTATIC LESION WOULD BE LESS COMMON BUT NOT EXCLUDED. 3. FINDINGS IN THE LUMBAR SPINE AND SACRUM EVALUATED WITH SEPARATE MRI. 4. NO OTHER SIGNIFICANT FINDINGS IN THE ABDOMEN OR PELVIS. Chest CT 10/04/17 19:35 IMPRESSION: NORMAL CT OF THE CHEST WITH IV CONTRAST. Soft Tissue Neck CT 10/04/17 19:35 IMPRESSION: ESSENTIALLY NO THYROID TISSUE VISUALIZED, EITHER MARKEDLY ATROPHIC OR SURGICALLY ABSENT. NO OTHER SIGNIFICANT FINDING IN THE SOFT TISSUES OF THE NECK. Extremity Ultrasound 10/05/17 00:00 IMPRESSION: No discrete mass is identified. The possibility of a lipoma cannot be excluded. Clinical correlation is recommended. 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 Is this a current diagnosis for this admission?: Yes Plan: Unsure of if this is the case, awaiting bone scan and labs now (2) Pain, cancer Is this a current diagnosis for this admission?: Yes Plan: Severe, increased fentanyl - Time Time Spent with patient: 35 or more minutes - Inpatient Certification Based on my medical assessment, after consideration of the patient's comorbidities, presenting symptoms, or acuity I expect that the services needed warrant INPATIENT care.: Yes I certify that my determination is in accordance with my understanding of Medicare's requirements for reasonable and necessary INPATIENT services [42 CFR 412.3e].: Yes Medical Necessity: Need for Pain Control, Risk of Complication if Not Cared For in Hospital
[2017-10-06] MEDS ORDERED: FENTANYL 75 MCG/HR PATCH.TD72 TD SCH (10:00)
[2017-10-06] MEDS: ENOXAPARIN SODIUM INJ 40 MG/0.4 ML DISP.SYRIN SUBCUT SCH (10:15)
[2017-10-06] MEDS: GABAPENTIN 400 MG CAPSULE PO SCH ×4 (10:15→22:07)
[2017-10-06] MEDS: CLONIDINE HCL 0.2 MG TABLET PO SCH ×2 (10:16→22:12)
[2017-10-06 13:38] LABS: FREE KAPPA LIGHT CHAINS 17.5 mg/L (3.3-19.4); FREE LAMBDA LIGHT CHAINS 18.1 mg/L (5.7-26.3)
[2017-10-06 13:52] LABS: KAPPA LAMBDA RATIO 0.97 (0.26-1.65)
--- NOTE | 2017-10-06 14:48 | RADIOLOGY REPORT (SQ) ---
EXAM DESCRIPTION: NM WHOLE BODY BONE SCAN COMPLETED DATE/TIME: 10/06/2017 2:15 pm REASON FOR STUDY: soft tissue mass COMPARISON: CT abdomen pelvis 10/04/2017 RADIONUCLIDE AND DOSE: 21.3 millicuries Tc99m HDP The route of agent administration: Intravenous. ADDITIONAL DRUGS AND DOSES: None. TECHNIQUE: Routine delayed images at 3 hours post radionuclide injection acquired of the bony skelet on including anterior and posterior whole-body projections and additional focused images as needed. LIMITATIONS: None. FINDINGS: BONES: Diffuse marked increased sacral activity is present, worrisome for sacral insuffici ency fracture. This correlates with abnormality on CT exam 10/04/2017. Remainder of the bone scan demonstrates mild increased uptake in characteristic locations of arthriti s at the shoulders, knees, ankles, and 1st metatarsophalangeal joint. KIDNEYS: There is mild retention of activity in the right-sided renal calices without evidence of fun ctionally significant hydronephrosis OTHER: Report discussed with Dr. Humphries IMPRESSION: Increased activity in the sacrum worrisome for insufficiency fracture. COMMENT: Quality measure 147: Current bone scan is compared with any available plain radiographs, p rior bone scans, and CT/MRI. TECHNICAL DOCUMENTATION: JOB ID: [id number] [employer]- All Rights Reserved Reading location - IP/workstation name: [email or web address]
[2017-10-06] MEDS: AMLODIPINE BESYLATE 10 MG TABLET PO SCH (17:30)
[2017-10-06] MEDS: DOCUSATE SODIUM 100 MG CAPSULE PO SCH (17:31)
[2017-10-06] MEDS: ASPIRIN 81 MG TABLET, CHEWABLE PO SCH (17:31)
[2017-10-06] MEDS: METOPROLOL TARTRATE 100 MG TABLET PO SCH (17:31)
[2017-10-06] MEDS: QUETIAPINE FUMARATE 25 MG TABLET PO SCH (17:32)
--- NOTE | 2017-10-06 18:36 | PDOC PROGRESS REPORT ---
Subjective Progress Note for:: 10/06/17 Subjective:: Patient feels fine when she is lying in the bed. When she bears weight she has severe back pain. She was relieved to hear that we may just be dealing with a fracture though cancer is not completely ruled out. No chest pain or difficulty breathing. Appetite is fine. She feels constipated. No fevers or chills. No bleeding. She does have urinary incontinence which is long- standing. Reason For Visit: INTRACTABLE BACK PAIN Physical Exam Vital Signs: Temp Pulse Resp BP Pulse Ox 98.0 F 70 17 136/57 H 96 10/06/17 16:00 10/06/17 16:00 10/06/17 16:00 10/06/17 17:37 10/06/17 16:00 Intake & Output 10/05/17 10/06/17 10/07/17 06:59 06:59 06:59 Intake Total 030 908 2658 Balance 637 746 9014 Weight 92.5 kg 95.1 kg General appearance: PRESENT: no acute distress, cooperative Head exam: PRESENT: atraumatic, normocephalic Eye exam: PRESENT: PERRLA Ear exam: PRESENT: normal external ear exam Mouth exam: PRESENT: neck supple, tongue midline Respiratory exam: PRESENT: clear to auscultation honey, unlabored. ABSENT: rales , rhonchi, wheezes Cardiovascular exam: PRESENT: RRR. ABSENT: systolic murmur Pulses: ABSENT: normal radial pulses GI/Abdominal exam: PRESENT: normal bowel sounds, soft. ABSENT: distended, mass , tenderness Rectal exam: PRESENT: deferred Extremities exam: ABSENT: calf tenderness, pedal edema Neurological exam: PRESENT: alert, awake, oriented to person, oriented to place , oriented to situation, CN II-XII grossly intact Psychiatric exam: PRESENT: appropriate affect. ABSENT: anxious Skin exam: PRESENT: dry, intact, warm Results Impressions: Lumbar Spine MRI 10/04/17 16:21 IMPRESSION: 1. FAIRLY EXTENSIVE ABNORMAL MARROW SIGNAL AND MARROW REPLACEMENT IN THE UPPER SACRUM MOST CONSISTENT WITH METASTATIC INVOLVEMENT. 2. MULTILEVEL CHRONIC DEGENERATIVE CHANGES IN THE LUMBAR SPINE DESCRIBED. Abdomen/Pelvis CT 10/04/17 19:35 IMPRESSION: 1. CORTICAL SCARRING IN THE KIDNEYS. NONOBSTRUCTING CALYCEAL CALCULUS IN THE RIGHT KIDNEY. 2. LOW-ATTENUATION LESION IN THE SPLEEN MOST LIKELY DUE TO A HEMANGIOMA. METASTATIC LESION WOULD BE LESS COMMON BUT NOT EXCLUDED. 3. FINDINGS IN THE LUMBAR SPINE AND SACRUM EVALUATED WITH SEPARATE MRI. 4. NO OTHER SIGNIFICANT FINDINGS IN THE ABDOMEN OR PELVIS. Chest CT 10/04/17 19:35 IMPRESSION: NORMAL CT OF THE CHEST WITH IV CONTRAST. Soft Tissue Neck CT 10/04/17 19:35 IMPRESSION: ESSENTIALLY NO THYROID TISSUE VISUALIZED, EITHER MARKEDLY ATROPHIC OR SURGICALLY ABSENT. NO OTHER SIGNIFICANT FINDING IN THE SOFT TISSUES OF THE NECK. Body Scan Nuclear Medicine 10/05/17 00:00 IMPRESSION: Increased activity in the sacrum worrisome for insufficiency fracture. Extremity Ultrasound 10/05/17 00:00 IMPRESSION: No discrete mass is identified. The possibility of a lipoma cannot be excluded. Clinical correlation is recommended. Assessment & Plan - Diagnosis (1) Intractable back pain Is this a current diagnosis for this admission?: Yes Plan: Patient has been worked up for the possibility of malignancy in the sacrum causing fracture and excessive pain. There is no evidence of malignancy at this time. She does have evidence of a fracture. She is on fentanyl patch and as needed oxycodone. She is comfortable when in bed but uncomfortable when bearing weight. She is being followed by the oncologist who has spoken with interventional pain and kyphoplasty is planned along with biopsy at that time. (2) Sacral fracture, closed Is this a current diagnosis for this admission?: Yes Plan: Please see above. Patient has not had trauma to the sacrum. Etiology of fracture not yet clear. Biopsy pending. (3) Diabetes mellitus Qualifiers: Diabetes mellitus type: type 2 Is this a current diagnosis for this admission?: Yes Plan: Continue current care. Morning fasting glucose tomorrow. (4) Hypertension Qualifiers: Hypertension type: essential hypertension Qualified Code(s): I10 - Essential (primary) hypertension Is this a current diagnosis for this admission?: Yes Plan: Stable, no changes. (5) Mass of left thigh Is this a current diagnosis for this admission?: Yes Plan: Ultrasound without evidence of malignancy. May be lipoma, will discuss with oncology. - Time Time Spent with patient: 25-34 minutes Medications reviewed and adjusted accordingly: Yes Anticipated discharge: Home - Inpatient Certification Based on my medical assessment, after consideration of the patient's comorbidities, presenting symptoms, or acuity I expect that the services needed warrant INPATIENT care.: Yes I certify that my determination is in accordance with my understanding of Medicare's requirements for reasonable and necessary INPATIENT services [42 CFR 412.3e].: Yes Medical Necessity: Significant Comorbidiites Make Outpatient Treatment Too Risky , Need for Pain Control
[2017-10-06] MEDS ORDERED: SENNOSIDES/DOCUSATE 8.6-50 MG 1 EACH TABLET PO ONE (20:00)
[2017-10-06] MEDS: ATORVASTATIN CALCIUM 10 MG TABLET PO SCH (22:07)
[2017-10-07 04:49] LABS: HEMATOCRIT 34.7 % (36.0-47.0); HEMOGLOBIN 11.7 g/dL (12.0-15.5); MEAN CORPUSCULAR HEMOGLOBIN 30.2 pg (27.0-33.4); MEAN CORPUSCULAR HGB CONC 33.6 g/dL (32.0-36.0); MEAN CORPUSCULAR VOLUME 90 fl (80-97); PLATELET COUNT 336 10^3/uL (150-450); RED BLOOD COUNT 3.87 10^6/uL (3.72-5.28); RED CELL DISTRIBUTION WIDTH 13.7 % (11.5-14.0); WHITE BLOOD COUNT 12.1 10^3/uL (4.0-10.5)
[2017-10-07 05:05] LABS: ANION GAP 10 (5-19); BLOOD UREA NITROGEN 25 mg/dL (7-20); CALCIUM 8.5 mg/dL (8.4-10.2); CARBON DIOXIDE 30 mmol/L (22-30); CHLORIDE 100 mmol/L (98-107); GLUCOSE 120 mg/dL (75-110); POTASSIUM 4.5 mmol/L (3.6-5.0); SODIUM 140.1 mmol/L (137-145)
[2017-10-07] MEDS: LEVOTHYROXINE SODIUM 0.112 MG TABLET PO SCH (05:15)
[2017-10-07] MEDS: LANSOPRAZOLE 15 MG TAB.RAP.DR PO SCH (05:15)
[2017-10-07] MEDS: LEVOTHYROXINE SODIUM 0.025 MG TABLET PO SCH (05:15)
[2017-10-07] MEDS: OXYCODONE HCL IR 5 MG TABLET PO PRN ×2 (05:20→19:53)
[2017-10-07] MEDS: MELOXICAM 7.5 MG TABLET PO SCH (08:18)
--- NOTE | 2017-10-07 09:29 | PDOC PROGRESS REPORT ---
Subjective Progress Note for:: 10/07/17 Subjective:: Discussed extensively results of bone scan w/. Dr Hdez pain management, looks like insuff anita garcia recommended kyphoplasty, I asked for bx at time of kypho. Dr. Hdez is to speak w/ pt today. Still having considerable pain, plan for inc fentanyl. D/w Hospitalist also, spent >35m in coordination of care today Reason For Visit: INTRACTABLE BACK PAIN Physical Exam Vital Signs: Temp Pulse Resp BP Pulse Ox 98.4 F 82 18 127/65 H 92 10/07/17 07:43 10/07/17 07:43 10/07/17 07:43 10/07/17 07:43 10/07/17 07:43 Intake & Output 10/06/17 10/07/17 10/08/17 06:59 06:59 06:59 Intake Total 888 1475 Balance 888 1475 Weight 95.1 kg 97 kg General appearance: PRESENT: no acute distress, well-developed, well-nourished Head exam: PRESENT: atraumatic, normocephalic Eye exam: PRESENT: conjunctiva pink, EOMI, PERRLA. ABSENT: scleral icterus Ear exam: PRESENT: normal external ear exam Mouth exam: PRESENT: moist, tongue midline Neck exam: ABSENT: carotid bruit, JVD, lymphadenopathy, thyromegaly Respiratory exam: PRESENT: clear to auscultation honey. ABSENT: rales, rhonchi, wheezes Cardiovascular exam: PRESENT: RRR. ABSENT: diastolic murmur, rubs, systolic murmur Pulses: PRESENT: normal dorsalis pedis pul Vascular exam: PRESENT: normal capillary refill GI/Abdominal exam: PRESENT: normal bowel sounds, soft. ABSENT: distended, guarding, mass, organolmegaly, rebound, tenderness Rectal exam: PRESENT: deferred Extremities exam: PRESENT: full ROM. ABSENT: calf tenderness, clubbing, pedal edema Neurological exam: PRESENT: alert, awake, oriented to person, oriented to place , oriented to time, oriented to situation, CN II-XII grossly intact. ABSENT: motor sensory deficit Psychiatric exam: PRESENT: appropriate affect, normal mood. ABSENT: homicidal ideation, suicidal ideation Skin exam: PRESENT: dry, intact, warm. ABSENT: cyanosis, rash Results Laboratory Results: 10/07/17 04:11 10/07/17 04:11 10/07/17 10/07/17 04:11 04:11 WBC 12.1 H RBC 3.87 Hgb 11.7 L Hct 34.7 L MCV 90 MCH 30.2 MCHC 33.6 RDW 13.7 Plt Count 336 Sodium 140.1 Potassium 4.5 Chloride 100 Carbon Dioxide 30 Anion Gap 10 BUN 25 H Creatinine 0.53 Est GFR ( Amer) > 60 Est GFR (Non-Af Amer) > 60 Glucose 120 H Calcium 8.5 Impressions: Lumbar Spine MRI 10/04/17 16:21 IMPRESSION: 1. FAIRLY EXTENSIVE ABNORMAL MARROW SIGNAL AND MARROW REPLACEMENT IN THE UPPER SACRUM MOST CONSISTENT WITH METASTATIC INVOLVEMENT. 2. MULTILEVEL CHRONIC DEGENERATIVE CHANGES IN THE LUMBAR SPINE DESCRIBED. Abdomen/Pelvis CT 10/04/17 19:35 IMPRESSION: 1. CORTICAL SCARRING IN THE KIDNEYS. NONOBSTRUCTING CALYCEAL CALCULUS IN THE RIGHT KIDNEY. 2. LOW-ATTENUATION LESION IN THE SPLEEN MOST LIKELY DUE TO A HEMANGIOMA. METASTATIC LESION WOULD BE LESS COMMON BUT NOT EXCLUDED. 3. FINDINGS IN THE LUMBAR SPINE AND SACRUM EVALUATED WITH SEPARATE MRI. 4. NO OTHER SIGNIFICANT FINDINGS IN THE ABDOMEN OR PELVIS. Chest CT 10/04/17 19:35 IMPRESSION: NORMAL CT OF THE CHEST WITH IV CONTRAST. Soft Tissue Neck CT 10/04/17 19:35 IMPRESSION: ESSENTIALLY NO THYROID TISSUE VISUALIZED, EITHER MARKEDLY ATROPHIC OR SURGICALLY ABSENT. NO OTHER SIGNIFICANT FINDING IN THE SOFT TISSUES OF THE NECK. Body Scan Nuclear Medicine 10/05/17 00:00 IMPRESSION: Increased activity in the sacrum worrisome for insufficiency fracture. Extremity Ultrasound 10/05/17 00:00 IMPRESSION: No discrete mass is identified. The possibility of a lipoma cannot be excluded. Clinical correlation is recommended. 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 Is this a current diagnosis for this admission?: Yes Plan: Plan for kypho and bx (2) Pain, cancer Is this a current diagnosis for this admission?: Yes Plan: inc fentanly - Time Time Spent with patient: 35 or more minutes - Inpatient Certification Based on my medical assessment, after consideration of the patient's comorbidities, presenting symptoms, or acuity I expect that the services needed warrant INPATIENT care.: Yes I certify that my determination is in accordance with my understanding of Medicare's requirements for reasonable and necessary INPATIENT services [42 CFR 412.3e].: Yes Medical Necessity: Need for Pain Control, Need for Surgery
[2017-10-07] MEDS ORDERED: SENNOSIDES/DOCUSATE 8.6-50 MG 1 EACH TABLET PO SCH (10:00)
[2017-10-07] MEDS ORDERED: FENTANYL 50 MCG/HR PATCH.TD72 TD SCH (10:00)
[2017-10-07] MEDS: ENOXAPARIN SODIUM INJ 40 MG/0.4 ML DISP.SYRIN SUBCUT SCH (10:24)
[2017-10-07] MEDS: CLONIDINE HCL 0.2 MG TABLET PO SCH ×2 (10:25→21:12)
[2017-10-07] MEDS: GABAPENTIN 400 MG CAPSULE PO SCH ×4 (10:25→21:11)
[2017-10-07] MEDS: FENTANYL 100 MCG/HR PATCH.TD72 TD SCH (10:26)
[2017-10-07] MEDS ORDERED: POLYETHYLENE GLYCOL 3350 POWDER 17 GM/1 PACKET PO ONE (17:00)
--- NOTE | 2017-10-07 17:40 | PDOC PROGRESS REPORT ---
Subjective Progress Note for:: 10/07/17 Subjective:: Patient's pain is slightly better controlled with 100 mcg fentanyl patch and the as needed oxycodone. In bed she is comfortable. When she is up she is having more difficulty. She is not having chest pain or difficulty breathing. No abdominal pain nausea or vomiting. She is constipated. She has not had a bowel movement in 1 week. No dysuria. No fevers or chills. She does report that over the past month she has lost about 10 pounds and she thinks that might be related to the sacral pain causing her to not eat as much. We discussed the left thigh lesion. She states that she noticed it around [facility] and it has grown since that time. Reason For Visit: INTRACTABLE BACK PAIN Physical Exam Vital Signs: Temp Pulse Resp BP Pulse Ox 98.4 F 80 18 129/44 H 93 10/07/17 15:54 10/07/17 15:54 10/07/17 15:54 10/07/17 15:54 10/07/17 15:54 Intake & Output 10/06/17 10/07/17 10/08/17 06:59 06:59 06:59 Intake Total 888 1475 621 Balance 888 1475 621 Weight 95.1 kg 97 kg General appearance: PRESENT: no acute distress, cooperative, obese Head exam: PRESENT: atraumatic, normocephalic Eye exam: PRESENT: EOMI Mouth exam: PRESENT: moist, neck supple Respiratory exam: PRESENT: clear to auscultation honey, unlabored. ABSENT: rales , rhonchi, wheezes Cardiovascular exam: PRESENT: RRR. ABSENT: systolic murmur Pulses: PRESENT: normal radial pulses GI/Abdominal exam: PRESENT: normal bowel sounds, soft. ABSENT: distended, guarding, tenderness Extremities exam: PRESENT: other - Left posterior lateral thigh with approximately 5 x 10 cm firm not very mobile mass, no overlying or surrounding skin changes. ABSENT: pedal edema Neurological exam: PRESENT: alert, awake, oriented to person, oriented to place , oriented to situation, CN II-XII grossly intact Psychiatric exam: PRESENT: appropriate affect. ABSENT: anxious Skin exam: PRESENT: dry, intact, warm Results Laboratory Results: 10/07/17 04:11 10/07/17 04:11 10/07/17 10/07/17 04:11 04:11 WBC 12.1 H RBC 3.87 Hgb 11.7 L Hct 34.7 L MCV 90 MCH 30.2 MCHC 33.6 RDW 13.7 Plt Count 336 Sodium 140.1 Potassium 4.5 Chloride 100 Carbon Dioxide 30 Anion Gap 10 BUN 25 H Creatinine 0.53 Est GFR ( Amer) > 60 Est GFR (Non-Af Amer) > 60 Glucose 120 H Calcium 8.5 Impressions: Lumbar Spine MRI 10/04/17 16:21 IMPRESSION: 1. FAIRLY EXTENSIVE ABNORMAL MARROW SIGNAL AND MARROW REPLACEMENT IN THE UPPER SACRUM MOST CONSISTENT WITH METASTATIC INVOLVEMENT. 2. MULTILEVEL CHRONIC DEGENERATIVE CHANGES IN THE LUMBAR SPINE DESCRIBED. Abdomen/Pelvis CT 10/04/17 19:35 IMPRESSION: 1. CORTICAL SCARRING IN THE KIDNEYS. NONOBSTRUCTING CALYCEAL CALCULUS IN THE RIGHT KIDNEY. 2. LOW-ATTENUATION LESION IN THE SPLEEN MOST LIKELY DUE TO A HEMANGIOMA. METASTATIC LESION WOULD BE LESS COMMON BUT NOT EXCLUDED. 3. FINDINGS IN THE LUMBAR SPINE AND SACRUM EVALUATED WITH SEPARATE MRI. 4. NO OTHER SIGNIFICANT FINDINGS IN THE ABDOMEN OR PELVIS. Chest CT 10/04/17 19:35 IMPRESSION: NORMAL CT OF THE CHEST WITH IV CONTRAST. Soft Tissue Neck CT 10/04/17 19:35 IMPRESSION: ESSENTIALLY NO THYROID TISSUE VISUALIZED, EITHER MARKEDLY ATROPHIC OR SURGICALLY ABSENT. NO OTHER SIGNIFICANT FINDING IN THE SOFT TISSUES OF THE NECK. Body Scan Nuclear Medicine 10/05/17 00:00 IMPRESSION: Increased activity in the sacrum worrisome for insufficiency fracture. Extremity Ultrasound 10/05/17 00:00 IMPRESSION: No discrete mass is identified. The possibility of a lipoma cannot be excluded. Clinical correlation is recommended. Assessment & Plan - Diagnosis (1) Sacral fracture, closed Is this a current diagnosis for this admission?: Yes Plan: CC plan for intractable pain above. We do not yet know clearly the etiology of the fracture, hope for biopsy. (2) Mass of left thigh Is this a current diagnosis for this admission?: Yes Plan: My exam of the thigh mass is not entirely consistent with a lipoma. Ultrasound was not definitive but did not really show a solid mass. I think given the rapidity of the growth and current problems with unknown etiology of sacral fracture it is most prudent to biopsy the lesion. (3) Intractable back pain Is this a current diagnosis for this admission?: Yes Plan: At this point we know she has a sacral fracture. We are treating her pain with fentanyl 100 mcg patch plus as needed oxycodone. We may need to transition to methadone which I think would control her pain well but will wait and see what happens with interventional pain and a possible kyphoplasty. Interventional pain service may also be able to perform biopsy. (4) Diabetes mellitus Qualifiers: Diabetes mellitus type: type 2 Is this a current diagnosis for this admission?: Yes Plan: Blood glucose well controlled. Continue current plan. (5) Hypertension Qualifiers: Hypertension type: essential hypertension Qualified Code(s): I10 - Essential (primary) hypertension Is this a current diagnosis for this admission?: Yes Plan: Well-controlled, continue current plan. - Time Time Spent with patient: 35 or more minutes - Including discussion with Dr. Humphries Medications reviewed and adjusted accordingly: Yes - Inpatient Certification Based on my medical assessment, after consideration of the patient's comorbidities, presenting symptoms, or acuity I expect that the services needed warrant INPATIENT care.: Yes I certify that my determination is in accordance with my understanding of Medicare's requirements for reasonable and necessary INPATIENT services [42 CFR 412.3e].: Yes Medical Necessity: Need Close Monitoring Due to Risk of Patient Decompensation, Need for Pain Control, Risk of Complication if Not Cared For in Hospital
[2017-10-07] MEDS: ASPIRIN 81 MG TABLET, CHEWABLE PO SCH (18:18)
[2017-10-07] MEDS: AMLODIPINE BESYLATE 10 MG TABLET PO SCH (18:18)
[2017-10-07] MEDS: METOPROLOL TARTRATE 100 MG TABLET PO SCH (18:18)
[2017-10-07] MEDS: QUETIAPINE FUMARATE 25 MG TABLET PO SCH (18:18)
[2017-10-07] MEDS: SENNOSIDES/DOCUSATE 8.6-50 MG 1 EACH TABLET PO SCH (18:18)
[2017-10-07] MEDS: ACETAMINOPHEN 325 MG TABLET PO PRN (21:12)
[2017-10-07] MEDS: ATORVASTATIN CALCIUM 10 MG TABLET PO SCH (21:12)
[2017-10-08 05:17] LABS: INTERNATIONAL RATION (INR) 0.92; PROTHROMBIN TIME 12.8 SEC (11.4-15.4)
[2017-10-08 05:18] LABS: PARTIAL THROMBOPLASTIN TIME 33.8 SEC (23.5-35.8)
[2017-10-08] MEDS: LEVOTHYROXINE SODIUM 0.112 MG TABLET PO SCH (05:51)
[2017-10-08] MEDS: LEVOTHYROXINE SODIUM 0.025 MG TABLET PO SCH (05:51)
[2017-10-08] MEDS: LANSOPRAZOLE 15 MG TAB.RAP.DR PO SCH (05:51)
[2017-10-08] MEDS: MELOXICAM 7.5 MG TABLET PO SCH (08:31)
--- NOTE | 2017-10-08 08:35 | RADIOLOGY REPORT (SQ) ---
EXAM DESCRIPTION: MRI PELVIS WITHOUT COMPLETED DATE/TIME: 10/07/2017 5:09 pm REASON FOR STUDY: Sacrum and pelvis for fx pelvis, rule out mass COMPARISON: MRI lumbar spine dated 10/04/2017. CT abdomen and pelvis dated 10/04/2017. Bone scan av ed 10/06/2017. TECHNIQUE: Multiplanar multisequence imaging performed without contrast including axial, sagittal an d coronal T2, axial T1, sagittal inversion recovery. LIMITATIONS: None. FINDINGS: PELVIC SKELETAL STRUCTURES: Again seen is diffuse abnormal marrow signal in the upper sacr um. There is indistinct appearance of the cortex with suggestion of areas of cortical breakthrough p articularly along the posterior margin. This extends throughout the S1 and S2 sacral segments. Pattie alton of the visualized bony structures are intact. No other areas of abnormal marrow signal. EXTRA PELVIS SOFT TISSUES: No masses or other abnormal soft tissue findings. OTHER: No other significant finding. IMPRESSION: ABNORMAL APPEARANCE OF THE UPPER SACRUM DESCRIBED. NO CHANGE COMPARED TO THE PREVIOU S LUMBAR MRI ON 10/04/2017. STRESS FRACTURE IS POSSIBLE BUT METASTASIS NEEDS TO BE CONSIDERED WELL . TECHNICAL DOCUMENTATION: JOB ID: [id number] [employer]- All Rights Reserved Reading location - IP/workstation name: [email or web address]
[2017-10-08] MEDS: OXYCODONE HCL IR 5 MG TABLET PO PRN ×2 (08:43→23:19)
[2017-10-08] MEDS ORDERED: FENTANYL 50 MCG/HR PATCH.TD72 TD SCH (10:00)
[2017-10-08] MEDS ORDERED: BISACODYL 10 MG SUPP.RECT PR ONE (10:00)
[2017-10-08] MEDS: CLONIDINE HCL 0.2 MG TABLET PO SCH ×2 (11:20→23:10)
[2017-10-08] MEDS: GABAPENTIN 400 MG CAPSULE PO SCH ×4 (11:20→23:10)
[2017-10-08] MEDS: SENNOSIDES/DOCUSATE 8.6-50 MG 1 EACH TABLET PO SCH ×2 (11:21→17:11)
[2017-10-08] MEDS: ENOXAPARIN SODIUM INJ 40 MG/0.4 ML DISP.SYRIN SUBCUT SCH (11:21)
[2017-10-08] MEDS: ASPIRIN 81 MG TABLET, CHEWABLE PO SCH (17:10)
[2017-10-08] MEDS: AMLODIPINE BESYLATE 10 MG TABLET PO SCH (17:11)
[2017-10-08] MEDS: QUETIAPINE FUMARATE 25 MG TABLET PO SCH (17:11)
[2017-10-08] MEDS: METOPROLOL TARTRATE 100 MG TABLET PO SCH (17:12)
--- NOTE | 2017-10-08 19:00 | PDOC PROGRESS REPORT ---
Subjective Progress Note for:: 10/08/17 Subjective:: Patient is about the same as she was yesterday. She continues with the fentanyl 100 mcg patch and as needed oxycodone. Other non-opiate pain meds available as well. Has been seen by the interventional pain service. She is willing to undergo biopsy and kyphoplasty. No chest pain or difficulty breathing. Eating and drinking well. No fevers or chills. No dysuria. And is still constipated. Reason For Visit: INTRACTABLE BACK PAIN Physical Exam Vital Signs: Temp Pulse Resp BP Pulse Ox 97.8 F 79 20 146/66 H 94 10/08/17 15:46 10/08/17 15:46 10/08/17 15:46 10/08/17 15:46 10/08/17 15:46 Intake & Output 10/07/17 10/08/17 10/09/17 06:59 06:59 06:59 Intake Total 1475 1121 920 Balance 1475 1121 920 Weight 97 kg 98.3 kg General appearance: PRESENT: no acute distress, obese Head exam: PRESENT: atraumatic, normocephalic Eye exam: PRESENT: EOMI. ABSENT: conjunctival injection, scleral icterus Mouth exam: PRESENT: moist, neck supple Respiratory exam: PRESENT: clear to auscultation honey, unlabored. ABSENT: rales , rhonchi, wheezes Cardiovascular exam: PRESENT: RRR. ABSENT: systolic murmur Pulses: PRESENT: normal radial pulses GI/Abdominal exam: PRESENT: normal bowel sounds, soft. ABSENT: distended, firm , guarding, tenderness Musculoskeletal exam: PRESENT: other - Left upper potero-lateral thigh with firm large unchanged mass Neurological exam: PRESENT: alert, awake, oriented to person, oriented to place , oriented to situation, CN II-XII grossly intact Psychiatric exam: PRESENT: appropriate affect, other - Appropriately concerned about the possibility of cancer. ABSENT: anxious Skin exam: PRESENT: dry, warm Results Laboratory Results: 10/07/17 04:11 10/07/17 04:11 Impressions: Lumbar Spine MRI 10/04/17 16:21 IMPRESSION: 1. FAIRLY EXTENSIVE ABNORMAL MARROW SIGNAL AND MARROW REPLACEMENT IN THE UPPER SACRUM MOST CONSISTENT WITH METASTATIC INVOLVEMENT. 2. MULTILEVEL CHRONIC DEGENERATIVE CHANGES IN THE LUMBAR SPINE DESCRIBED. Abdomen/Pelvis CT 10/04/17 19:35 IMPRESSION: 1. CORTICAL SCARRING IN THE KIDNEYS. NONOBSTRUCTING CALYCEAL CALCULUS IN THE RIGHT KIDNEY. 2. LOW-ATTENUATION LESION IN THE SPLEEN MOST LIKELY DUE TO A HEMANGIOMA. METASTATIC LESION WOULD BE LESS COMMON BUT NOT EXCLUDED. 3. FINDINGS IN THE LUMBAR SPINE AND SACRUM EVALUATED WITH SEPARATE MRI. 4. NO OTHER SIGNIFICANT FINDINGS IN THE ABDOMEN OR PELVIS. Chest CT 10/04/17 19:35 IMPRESSION: NORMAL CT OF THE CHEST WITH IV CONTRAST. Soft Tissue Neck CT 10/04/17 19:35 IMPRESSION: ESSENTIALLY NO THYROID TISSUE VISUALIZED, EITHER MARKEDLY ATROPHIC OR SURGICALLY ABSENT. NO OTHER SIGNIFICANT FINDING IN THE SOFT TISSUES OF THE NECK. Body Scan Nuclear Medicine 10/05/17 00:00 IMPRESSION: Increased activity in the sacrum worrisome for insufficiency fracture. Extremity Ultrasound 10/05/17 00:00 IMPRESSION: No discrete mass is identified. The possibility of a lipoma cannot be excluded. Clinical correlation is recommended. Pelvis MRI 10/07/17 00:00 IMPRESSION: ABNORMAL APPEARANCE OF THE UPPER SACRUM DESCRIBED. NO CHANGE COMPARED TO THE PREVIOUS LUMBAR MRI ON 10/04/2017. STRESS FRACTURE IS POSSIBLE BUT METASTASIS NEEDS TO BE CONSIDERED WELL. Assessment & Plan - Diagnosis (1) Sacral fracture, closed Is this a current diagnosis for this admission?: Yes Plan: Within the next several days patient will undergo kyphoplasty with biopsy. She has been communicating with the interventional pain specialist. Patient had a pelvic MRI yesterday which showed that her sacral fracture is likely associated with a malignancy. (2) Mass of left thigh Is this a current diagnosis for this admission?: Yes Plan: Even though ultrasound did not show solid mass, the clinical picture is suspicious for malignancy. The lesion on her thigh started around Easter and has grown rapidly. It is firm and non-mobile, not entirely consistent with lipoma. Ultrasound-guided needle biopsy is ordered. (3) Intractable back pain Is this a current diagnosis for this admission?: Yes Plan: Contrary to sacral fracture and possible cancer. Continue current pain plan. Should patient not be well controlled on current medication starting methadone would be an option. (4) Diabetes mellitus Qualifiers: Diabetes mellitus type: type 2 Is this a current diagnosis for this admission?: Yes Plan: Continue current plan. (5) Hypertension Qualifiers: Hypertension type: essential hypertension Qualified Code(s): I10 - Essential (primary) hypertension Is this a current diagnosis for this admission?: Yes Plan: Continue current regimen - Time Time Spent with patient: 35 or more minutes - Discussed patient's case with Dr. Gomez and with her nurse. Medications reviewed and adjusted accordingly: Yes - Inpatient Certification Based on my medical assessment, after consideration of the patient's comorbidities, presenting symptoms, or acuity I expect that the services needed warrant INPATIENT care.: Yes I certify that my determination is in accordance with my understanding of Medicare's requirements for reasonable and necessary INPATIENT services [42 CFR 412.3e].: Yes Medical Necessity: Need Close Monitoring Due to Risk of Patient Decompensation, Need for Pain Control, Risk of Complication if Not Cared For in Hospital
[2017-10-08] MEDS: ATORVASTATIN CALCIUM 10 MG TABLET PO SCH (23:10)
[2017-10-09 05:14] LABS: HEMATOCRIT 35.7 % (36.0-47.0); HEMOGLOBIN 11.7 g/dL (12.0-15.5); MEAN CORPUSCULAR HEMOGLOBIN 30.1 pg (27.0-33.4); MEAN CORPUSCULAR HGB CONC 32.9 g/dL (32.0-36.0); MEAN CORPUSCULAR VOLUME 91 fl (80-97); PLATELET COUNT 349 10^3/uL (150-450); RED BLOOD COUNT 3.91 10^6/uL (3.72-5.28); RED CELL DISTRIBUTION WIDTH 13.7 % (11.5-14.0); WHITE BLOOD COUNT 10.4 10^3/uL (4.0-10.5)
[2017-10-09 05:36] LABS: ANION GAP 9 (5-19); BLOOD UREA NITROGEN 17 mg/dL (7-20); CALCIUM 8.8 mg/dL (8.4-10.2); CARBON DIOXIDE 32 mmol/L (22-30); CHLORIDE 100 mmol/L (98-107); GLUCOSE 117 mg/dL (75-110); POTASSIUM 5.2 mmol/L (3.6-5.0); SODIUM 140.6 mmol/L (137-145)
[2017-10-09] MEDS: LEVOTHYROXINE SODIUM 0.112 MG TABLET PO SCH (06:05)
[2017-10-09] MEDS: LANSOPRAZOLE 15 MG TAB.RAP.DR PO SCH (06:06)
[2017-10-09] MEDS: LEVOTHYROXINE SODIUM 0.025 MG TABLET PO SCH (06:06)
[2017-10-09] MEDS: OXYCODONE HCL IR 5 MG TABLET PO PRN ×2 (06:09→14:34)
[2017-10-09] MEDS: ENOXAPARIN SODIUM INJ 40 MG/0.4 ML DISP.SYRIN SUBCUT SCH (08:52)
--- NOTE | 2017-10-09 09:03 | PDOC PROGRESS REPORT ---
Subjective Progress Note for:: 10/09/17 Subjective:: Pain better, being planned for kypho this week Reason For Visit: INTRACTABLE BACK PAIN Physical Exam Vital Signs: Temp Pulse Resp BP Pulse Ox 97.6 F 78 16 138/44 H 97 10/09/17 07:55 10/09/17 07:55 10/09/17 07:55 10/09/17 07:55 10/09/17 07:55 Intake & Output 10/08/17 10/09/17 10/10/17 06:59 06:59 06:59 Intake Total 1121 1660 Balance 1121 1660 Weight 98.3 kg 97.7 kg General appearance: PRESENT: no acute distress, well-developed, well-nourished Head exam: PRESENT: atraumatic, normocephalic Eye exam: PRESENT: conjunctiva pink, EOMI, PERRLA. ABSENT: scleral icterus Ear exam: PRESENT: normal external ear exam Mouth exam: PRESENT: moist, tongue midline Neck exam: ABSENT: carotid bruit, JVD, lymphadenopathy, thyromegaly Respiratory exam: PRESENT: clear to auscultation honey. ABSENT: rales, rhonchi, wheezes Cardiovascular exam: PRESENT: RRR. ABSENT: diastolic murmur, rubs, systolic murmur Pulses: PRESENT: normal dorsalis pedis pul Vascular exam: PRESENT: normal capillary refill GI/Abdominal exam: PRESENT: normal bowel sounds, soft. ABSENT: distended, guarding, mass, organolmegaly, rebound, tenderness Rectal exam: PRESENT: deferred Extremities exam: PRESENT: full ROM. ABSENT: calf tenderness, clubbing, pedal edema Neurological exam: PRESENT: alert, awake, oriented to person, oriented to place , oriented to time, oriented to situation, CN II-XII grossly intact. ABSENT: motor sensory deficit Psychiatric exam: PRESENT: appropriate affect, normal mood. ABSENT: homicidal ideation, suicidal ideation Skin exam: PRESENT: dry, intact, warm. ABSENT: cyanosis, rash Results Laboratory Results: 10/09/17 04:10 10/09/17 04:10 10/09/17 10/09/17 04:10 04:10 WBC 10.4 RBC 3.91 Hgb 11.7 L Hct 35.7 L MCV 91 MCH 30.1 MCHC 32.9 RDW 13.7 Plt Count 349 Sodium 140.6 Potassium 5.2 H Chloride 100 Carbon Dioxide 32 H Anion Gap 9 BUN 17 Creatinine 0.55 Est GFR ( Amer) > 60 Est GFR (Non-Af Amer) > 60 Glucose 117 H Calcium 8.8 Impressions: Lumbar Spine MRI 10/04/17 16:21 IMPRESSION: 1. FAIRLY EXTENSIVE ABNORMAL MARROW SIGNAL AND MARROW REPLACEMENT IN THE UPPER SACRUM MOST CONSISTENT WITH METASTATIC INVOLVEMENT. 2. MULTILEVEL CHRONIC DEGENERATIVE CHANGES IN THE LUMBAR SPINE DESCRIBED. Abdomen/Pelvis CT 10/04/17 19:35 IMPRESSION: 1. CORTICAL SCARRING IN THE KIDNEYS. NONOBSTRUCTING CALYCEAL CALCULUS IN THE RIGHT KIDNEY. 2. LOW-ATTENUATION LESION IN THE SPLEEN MOST LIKELY DUE TO A HEMANGIOMA. METASTATIC LESION WOULD BE LESS COMMON BUT NOT EXCLUDED. 3. FINDINGS IN THE LUMBAR SPINE AND SACRUM EVALUATED WITH SEPARATE MRI. 4. NO OTHER SIGNIFICANT FINDINGS IN THE ABDOMEN OR PELVIS. Chest CT 10/04/17 19:35 IMPRESSION: NORMAL CT OF THE CHEST WITH IV CONTRAST. Soft Tissue Neck CT 10/04/17 19:35 IMPRESSION: ESSENTIALLY NO THYROID TISSUE VISUALIZED, EITHER MARKEDLY ATROPHIC OR SURGICALLY ABSENT. NO OTHER SIGNIFICANT FINDING IN THE SOFT TISSUES OF THE NECK. Body Scan Nuclear Medicine 10/05/17 00:00 IMPRESSION: Increased activity in the sacrum worrisome for insufficiency fracture. Extremity Ultrasound 10/05/17 00:00 IMPRESSION: No discrete mass is identified. The possibility of a lipoma cannot be excluded. Clinical correlation is recommended. Pelvis MRI 10/07/17 00:00 IMPRESSION: ABNORMAL APPEARANCE OF THE UPPER SACRUM DESCRIBED. NO CHANGE COMPARED TO THE PREVIOUS LUMBAR MRI ON 10/04/2017. STRESS FRACTURE IS POSSIBLE BUT METASTASIS NEEDS TO BE CONSIDERED WELL. 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 Is this a current diagnosis for this admission?: Yes Plan: kypho this week, bx and pain control (2) Pain, cancer Is this a current diagnosis for this admission?: Yes Plan: increase fentanyl to 125 today - Time Time Spent with patient: 35 or more minutes Disposition: long discussion w/ family today, >40min - Inpatient Certification Based on my medical assessment, after consideration of the patient's comorbidities, presenting symptoms, or acuity I expect that the services needed warrant INPATIENT care.: Yes I certify that my determination is in accordance with my understanding of Medicare's requirements for reasonable and necessary INPATIENT services [42 CFR 412.3e].: Yes
--- NOTE | 2017-10-09 09:20 | PROGRESS NOTE E ---
Progress Note NAME: BELLO DIAZ : 1945 AGE: 72Y DATE: 10/09/2017 ROOM: 529 SUBJECTIVE: The patient is currently lying in bed. The patient states that her pain is reasonably controlled as long as she is just lying there. However, whenever the patient goes to stand up her pain is absolutely excruciating and unbearable. The patient describes it as taking her breath away. The patient denies any nausea, vomiting. There has been no diarrhea, shortness of breath, dizziness, chest pain. No fevers, chills. The patient has asked for a more liberal diet and the patient does not voice any other concerns at this time. The patient was being seen by Dr. Humphries whenever initially rounded. Do appreciate him helping to correlate her care. BRIEF HISTORY: The patient is a 72-year-old female with a past medical history of diabetes. The patient came to the emergency department due to intractable back pain. During the patient's stay she was found to have what appeared to be a sacral fracture with that was felt to be insufficiency fracture and therefore this was discussed with Dr. Humphries. The case has also been discussed with Dr. Gomez, Pain Management, that is considering kyphoplasty. The patient did have a MRI of the pelvis that also shows an area of a solid mass of the left thigh. Again, this is highly suspicious for malignancy. The patient is to have a kyphoplasty with biopsy at that time by Dr. Gomez. Dr. Humphries's lab are pending. Pain control has been a major issue for this patient. REVIEW OF SYSTEMS: The rest of the review of systems is negative. MEDICATIONS: Medications have been reviewed. OBJECTIVE: GENERAL: The patient is a very pleasant 72-year-old female who is awake, alert, and oriented to person, place, time, and situation. She is verbal and conversational. Does not appear to be in any acute distress. VITAL SIGNS: Temperature is 98.1, pulse 72, respirations 16, blood pressure is 136/49, oxygen saturation is 92% on room air. SKIN: Warm and dry. No rash. She is not diaphoretic. HEENT: Pupils equal, round, and reactive to light and accommodation. Conjunctivae pink. NECK: No evidence of JVD. CARDIOVASCULAR SYSTEM: Heart is regular. There is no murmur or rub. CHEST: Clear, symmetrical, unlabored. ABDOMEN: Soft, nontender, and nondistended. BACK: No CVA tenderness. EXTREMITIES: No clubbing, cyanosis, edema. PSYCHIATRIC: Appropriate affect, pleasant mood. DIAGNOSTIC DATA: Lab values are as follows: Hematology obtained on 10/09/2017: WBC's are 10.4, hemoglobin is 12.7, hematocrit is 35.7, platelet count is 349,000. Chemistries obtained on 10/09/2017: Sodium is 140, potassium 4.2, chloride is 100, , BUN 17, creatinine 0.55, glucose 113, calcium is 8.8. IMPRESSION AND PLAN: 1. CLOSED SACRAL FRACTURE. The patient is to have a kyphoplasty with biopsy by Dr Gomez. MRI was suggestive of possible malignancy. 2. LEFT THIGH MASS. Ultrasound was not specific, however, the overall clinical picture is suspicious for malignancy. The area is firm, non-mobile and not really consistent with a lipoma. An ultrasound needle biopsy has been ordered. 3. INTRACTABLE BACK PAIN. Will continue current pain management as the patient does get relief when just lying there. She has been maximized on a Fentanyl patch at this point as well as break through Oxy and muscle relaxer. 4. DIABETES MELLITUS TYPE 2 NON-INSULIN DEPENDENT IN THE OBESE. Will continue current medication. Glucoses have been reasonably controlled. 5. HYPERTENSION: Will continue the patient's home medications. DISPOSITION: The patient is a FULL CODE. Pending patient's symptomatology and diagnostic findings, will reevaluate in the a.m. Time spent on this followup including assessment, plan, physical examination, patient education, review of records and specialty collaboration is 25 minutes. DICTATING PHYSICIAN: BEKAH CABAN NP [id number] PHY#: [id number] ID: [id number] JOB#: [id number] ACCT: [id number] cc: > MTDD
[2017-10-09] MEDS: CLONIDINE HCL 0.2 MG TABLET PO SCH ×2 (09:28→21:25)
[2017-10-09] MEDS: MELOXICAM 7.5 MG TABLET PO SCH (09:28)
[2017-10-09] MEDS: SENNOSIDES/DOCUSATE 8.6-50 MG 1 EACH TABLET PO SCH ×2 (09:29→17:02)
[2017-10-09] MEDS: GABAPENTIN 400 MG CAPSULE PO SCH ×4 (09:29→21:25)
[2017-10-09] MEDS: MAGNESIUM CITRATE 296 ML BOTTLE PO PRN (09:30)
[2017-10-09] MEDS: FENTANYL 25 MCG/HR PATCH.TD72 TD SCH (09:46)
--- NOTE | 2017-10-09 12:32 | RADIOLOGY REPORT (SQ) ---
EXAM DESCRIPTION: CHEST 2 VIEWS COMPLETED DATE/TIME: 10/09/2017 12:22 pm REASON FOR STUDY: PRE OP COMPARISON: CT chest 10/04/2017 EXAM PARAMETERS: NUMBER OF VIEWS: two views TECHNIQUE: Digital Frontal and Lateral radiographic views of the chest acquired. RADIATION DOSE: NA LIMITATIONS: none FINDINGS: LUNGS AND PLEURA: No opacities, masses or pneumothorax. No pleural effusion. MEDIASTINUM AND HILAR STRUCTURES: No masses or contour abnormalities. HEART AND VASCULAR STRUCTURES: Moderate cardiomegaly. BONES: No acute findings. HARDWARE: None in the chest. OTHER: No other significant finding. IMPRESSION: Moderate cardiomegaly. Otherwise unremarkable study TECHNICAL DOCUMENTATION: JOB ID: [id number] [employer]- All Rights Reserved Reading location - IP/workstation name: [email or web address]
[2017-10-09 12:35] LABS: APPEARANCE,URINE CLOUDY; BILIRUBIN,URINE NEGATIVE (NEGATIVE); COLOR,URINE YELLOW; GLUCOSE, URINE NEGATIVE (NEGATIVE); KETONES,URINE NEGATIVE (NEGATIVE); LEUKOCYTE ESTERASE,URINE LARGE (NEGATIVE); NITRITE,URINE NEGATIVE (NEGATIVE); PROTEIN,URINE NEGATIVE (NEGATIVE); URINE SPECIFIC GRAVITY 1.014
--- NOTE | 2017-10-09 12:52 | EKG REPORT ---
SEVERITY:- ABNORMAL ECG - SINUS RHYTHM LEFT BUNDLE BRANCH BLOCK : Confirmed by: Shubham Brandt MD 09-Oct-2017 12:52:25
--- NOTE | 2017-10-09 15:41 | RADIOLOGY REPORT (SQ) ---
EXAM DESCRIPTION: U/S EXTREMITY NONVASCULAR COMP COMPLETED DATE/TIME: 10/09/2017 3:14 pm REASON FOR STUDY: left thigh mass COMPARISON: MRI left upper thigh 10/05/2017 CT abdomen pelvis 10/04/2017 Bone scan 10/06/2017 MRI sacrum/pelvis 10/07/2017 TECHNIQUE: Static and real time davalos scale ultrasound Doppler spectral analysis, and color Doppler a cquired over the left lateral hip region in the area of patient pain LIMITATIONS: None. FINDINGS: Ultrasound over the left upper thigh/left hip region in the greater trochanter region was performed. Patient describes a painful mass in this area. Patient was scanned by both myself as wel l as the technologist. There is no discrete mass in the left upper thigh/left greater trochanter region. No left trochanter ic bursal fluid. Subcutaneous fat is slightly thicker on the left as compared to the right. These findings were discussed with Dr. Humphries. No left upper thigh mass biopsy was performed. IMPRESSION: No discrete left upper thigh/ greater trochanter region mass is identified at ultrasound TECHNICAL DOCUMENTATION: JOB ID: [id number]- All Rights Reserved Reading location - IP/workstation name: [email or web address]
[2017-10-09 16:39] LABS: IMMUNOGLOBULIN A 339 mg/dL (64-422); IMMUNOGLOBULIN G 903 mg/dL (700-1600)
[2017-10-09 16:39] LABS: A/G RATIO. 1.1 (0.7-1.7); ALBUMIN 3 3.4 g/dL (2.9-4.4); ALPHA-1-GLOBULIN 0.3 g/dL (0.0-0.4); BETA GLOBULIN 1.3 g/dL (0.7-1.3); GAMMA GLOBULINS 0.8 g/dL (0.4-1.8); IMMUNOGLOBULIN A 316 mg/dL (64-422); IMMUNOGLOBULIN G 902 mg/dL (700-1600); IMMUNOGLOBULIN M 80 mg/dL (26-217); MONOCLONAL-SPIKE Not Observed g/dL (Not Observed); PROTEIN TOTAL SERUM 6.8 g/dL (6.0-8.5)
[2017-10-09] MEDS: METOPROLOL TARTRATE 100 MG TABLET PO SCH (17:01)
[2017-10-09] MEDS: AMLODIPINE BESYLATE 10 MG TABLET PO SCH (17:01)
[2017-10-09] MEDS: ASPIRIN 81 MG TABLET, CHEWABLE PO SCH (17:01)
[2017-10-09] MEDS: QUETIAPINE FUMARATE 25 MG TABLET PO SCH (17:02)
[2017-10-09] MEDS: ATORVASTATIN CALCIUM 10 MG TABLET PO SCH (21:25)
[2017-10-10] MEDS: LEVOTHYROXINE SODIUM 0.025 MG TABLET PO SCH (05:41)
[2017-10-10] MEDS: LEVOTHYROXINE SODIUM 0.112 MG TABLET PO SCH (05:42)
[2017-10-10] MEDS: LANSOPRAZOLE 15 MG TAB.RAP.DR PO SCH (05:42)
[2017-10-10] MEDS: OXYCODONE HCL IR 5 MG TABLET PO PRN ×4 (06:30→20:43)
[2017-10-10 07:44] LABS: IMMUNOGLOBULIN M 77 mg/dL (26-217)
--- NOTE | 2017-10-10 08:30 | PROGRESS NOTE E ---
Progress Note NAME: BELLO DIAZ : 1945 AGE: 72Y DATE: 10/08/2017 ROOM: 529 INTERVAL HISTORY: Her Duragesic patch has been increased. She has had some modest improvement in pain. She still is unable to walk. EXAMINATION: Her distress level has decreased. I have decided to place the order for the MRI of the pelvis again. IMPRESSION: Probable malignancy lumbosacral vertebral bodies. RECOMMENDATION: Will pursue workup and plans for probable lumbosacral kyphoplasty with *------*. DICTATING PHYSICIAN: SLY ALVARADO M.D. [id number] PHY#: [id number] ID: [id number] JOB#: [id number] ACCT: [id number] cc: >
--- NOTE | 2017-10-10 08:35 | PROGRESS NOTE E ---
Progress Note NAME: BELLO DIZA : 1945 AGE: 72Y DATE: 10/09/2017 ROOM: 529 SUBJECTIVE: The patient shows modest level of improvement in pain control with the additional medications. She still notes she is unable to walk. She has had some difficulty with bowel movements and has used some laxative therapy. She is very interested in pursuing the kyphoplasty and the biopsy lesioning. No other change in complaints or status. OBJECTIVE: Continues to have significant pain and tenderness over the lumbosacral junction, secondary to fracture. LABORATORY DATA: Sacral MRI demonstrates significant infiltration of the S1 and S2 regions. There does not appear to be infiltration in the lower areas, nor does there appear to be any pelvic masses. ASSESSMENT: SACRAL INSUFFICIENCY FRACTURE SECONDARY TO MALIGNANCY WITH INTRACTABLE PAIN. PLAN: We will proceed with osteo-lesioning and sacral kyphoplasty on October 11, schedule permitting or October 13. Laboratory data will be obtained including coagulation, urine studies, EKG and chest x-ray prior to surgery. DICTATING PHYSICIAN: SLY ALVARADO M.D. [id number] PHY#: [id number] ID: [id number] JOB#: [id number] ACCT: [id number] cc: >
--- NOTE | 2017-10-10 09:03 | PDOC PROGRESS REPORT ---
Subjective Progress Note for:: 10/10/17 Subjective:: Patient seems to be a little bit better today still with a lot of pain, was having some increased urgency of urination, had UA which indicated positive leukocyte esterase, I discussed her case with Dr. Hdez who noted that she really needs a clean UA prior to back procedure, we will give 1 dose of IV Levaquin today, and plan for daily IV Levaquin until UA is clear. Of note, I had a long discussion with radiology yesterday, the left side of hip/thigh lump is definitely not a mass that can be biopsy. Reason For Visit: INTRACTABLE BACK PAIN Physical Exam Vital Signs: Temp Pulse Resp BP Pulse Ox 97.9 F 76 12 138/47 H 98 10/10/17 07:49 10/10/17 07:49 10/10/17 07:49 10/10/17 07:49 10/10/17 07:49 Intake & Output 10/09/17 10/10/17 10/11/17 06:59 06:59 06:59 Intake Total 1660 704 Output Total 100 Balance 1660 604 Weight 97.7 kg General appearance: PRESENT: no acute distress, well-developed, well-nourished Head exam: PRESENT: atraumatic, normocephalic Eye exam: PRESENT: conjunctiva pink, EOMI, PERRLA. ABSENT: scleral icterus Ear exam: PRESENT: normal external ear exam Mouth exam: PRESENT: moist, tongue midline Neck exam: ABSENT: carotid bruit, JVD, lymphadenopathy, thyromegaly Respiratory exam: PRESENT: clear to auscultation honey. ABSENT: rales, rhonchi, wheezes Cardiovascular exam: PRESENT: RRR. ABSENT: diastolic murmur, rubs, systolic murmur Pulses: PRESENT: normal dorsalis pedis pul Vascular exam: PRESENT: normal capillary refill GI/Abdominal exam: PRESENT: normal bowel sounds, soft. ABSENT: distended, guarding, mass, organolmegaly, rebound, tenderness Rectal exam: PRESENT: deferred Extremities exam: PRESENT: full ROM. ABSENT: calf tenderness, clubbing, pedal edema Neurological exam: PRESENT: alert, awake, oriented to person, oriented to place , oriented to time, oriented to situation, CN II-XII grossly intact. ABSENT: motor sensory deficit Psychiatric exam: PRESENT: appropriate affect, normal mood. ABSENT: homicidal ideation, suicidal ideation Skin exam: PRESENT: dry, intact, warm. ABSENT: cyanosis, rash Results Laboratory Results: 10/09/17 04:10 10/09/17 04:10 10/05/17 10/09/17 15:45 10:55 Total Protein 6.8 Albumin 3.4 Urine Color YELLOW Urine Appearance CLOUDY Urine pH 5.0 Ur Specific [place] 1.014 Urine Protein NEGATIVE Urine Glucose (UA) NEGATIVE Urine Ketones NEGATIVE Urine Blood SMALL H Urine Nitrite NEGATIVE Ur Leukocyte Esterase LARGE H Urine WBC (Auto) 180 Urine RBC (Auto) 7 Impressions: Lumbar Spine MRI 10/04/17 16:21 IMPRESSION: 1. FAIRLY EXTENSIVE ABNORMAL MARROW SIGNAL AND MARROW REPLACEMENT IN THE UPPER SACRUM MOST CONSISTENT WITH METASTATIC INVOLVEMENT. 2. MULTILEVEL CHRONIC DEGENERATIVE CHANGES IN THE LUMBAR SPINE DESCRIBED. Abdomen/Pelvis CT 10/04/17 19:35 IMPRESSION: 1. CORTICAL SCARRING IN THE KIDNEYS. NONOBSTRUCTING CALYCEAL CALCULUS IN THE RIGHT KIDNEY. 2. LOW-ATTENUATION LESION IN THE SPLEEN MOST LIKELY DUE TO A HEMANGIOMA. METASTATIC LESION WOULD BE LESS COMMON BUT NOT EXCLUDED. 3. FINDINGS IN THE LUMBAR SPINE AND SACRUM EVALUATED WITH SEPARATE MRI. 4. NO OTHER SIGNIFICANT FINDINGS IN THE ABDOMEN OR PELVIS. Chest CT 10/04/17 19:35 IMPRESSION: NORMAL CT OF THE CHEST WITH IV CONTRAST. Soft Tissue Neck CT 10/04/17 19:35 IMPRESSION: ESSENTIALLY NO THYROID TISSUE VISUALIZED, EITHER MARKEDLY ATROPHIC OR SURGICALLY ABSENT. NO OTHER SIGNIFICANT FINDING IN THE SOFT TISSUES OF THE NECK. Body Scan Nuclear Medicine 10/05/17 00:00 IMPRESSION: Increased activity in the sacrum worrisome for insufficiency fracture. Pelvis MRI 10/07/17 00:00 IMPRESSION: ABNORMAL APPEARANCE OF THE UPPER SACRUM DESCRIBED. NO CHANGE COMPARED TO THE PREVIOUS LUMBAR MRI ON 10/04/2017. STRESS FRACTURE IS POSSIBLE BUT METASTASIS NEEDS TO BE CONSIDERED WELL. Chest X-Ray 10/09/17 00:00 IMPRESSION: Moderate cardiomegaly. 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 Gomez, he is more concerned that this is some sort of malignancy like myeloma rather than just an insufficiency fracture, plan for kyphoplasty, biopsy at that time, as well as intratumoral ablation procedure. (2) Pain, cancer Is this a current diagnosis for this admission?: Yes Plan: Continue with current pain management. - Time Time Spent with patient: 35 or more minutes - Inpatient Certification Based on my medical assessment, after consideration of the patient's comorbidities, presenting symptoms, or acuity I expect that the services needed warrant INPATIENT care.: Yes I certify that my determination is in accordance with my understanding of Medicare's requirements for reasonable and necessary INPATIENT services [42 CFR 412.3e].: Yes Medical Necessity: Need for Pain Control, Need for IV Antibiotics, Need for Surgery
--- NOTE | 2017-10-10 09:25 | CONSULTATION REPORT E ---
Consultation Report NAME: BELLO DIAZ : 1945 AGE: 72Y DATE: 10/07/2017 529 A TO: SLY ALVARADO M.D. FROM: HOLLIE PATEL M.D. Requesting Physician CHIEF COMPLAINT: Sacral pain. HISTORY: This is a 72-year-old woman who was admitted on 10/04/17 due to severe sacral pain. She was seen by her primary care physician prior to the admission. This is Dr. Carol Carter. During evaluation, x-rays were taken of the lumbosacral spine and concerns regarding lytic lesions were raised. She was seen in consultation with the neurosurgeon from [facility]. In that clinic, Dr. Noble who advised admission. The patient was subsequently admitted to [facility] for further evaluation and care. Consultation was made for pain management, both requesting potential biopsy and kyphoplasty/sacroplasty of the affected regions. She had a number of tests performed already including CT scan and bone scan, which shows extensive lesions in the S1 and S2 region suggestive of insufficiency fracture. MRI suggest potential for malignancy with infiltration of the bony margins with abnormal tissue signal. The patient notes that she has been in severe pain, unable to walk. She denies any symptoms suggestive of other issues, bowel or bladder obstruction, or dysfunction at this time. She has been placed on pain medication and has seen some improvement with this, but not sufficient to be able to walk at this time. ALLERGIES: None. MEDICATIONS: As per chart including, 1. Fentanyl. 2. Duragesic patch 75 mcg/h. 3. Oxycodone p.r.n. PAST MEDICAL HISTORY: Remarkable for thyroid disease. SURGICAL HISTORY: Remarkable to thyroid biopsy and lumbar spine discectomy many years ago. SOCIAL HISTORY: She has a supportive family. She is a nonsmoker, nondrinker. Denies any use of substances, street drugs, marijuana. She does not have any signs or symptoms of depression or distress other than those related to the immediate illness. REVIEW OF SYSTEMS: CONSTITUTIONAL: Negative for fever, chills. HEENT: Negative for difficulty swallowing. CARDIOVASCULAR: Negative for chest pain. RESPIRATORY: No cough. GI: No abdominal pain, nausea, vomiting, diarrhea, or change in bowel or bladder function. GENITOURINARY: She denies dysuria, hematuria, or urinary frequency. MUSCULOSKELETAL: Pain in the lumbosacral region and prior history of radiculopathy treated with lumbar discectomy. INTEGUMENT: Unremarkable for rashes or lesions. HEMATOLOGICAL: Denies any bruising or bleeding issues. LYMPHATICS: Denies any swelling or edema of the lower extremities. NEUROLOGICAL: She has not had any history of altered mental status or chronic headaches. She has had intermittent tingling in her left thigh. She denies any weakness. PSYCHIATRIC: Negative for depression or anxiety. PHYSICAL EXAMINATION: VITAL SIGNS: Her vital signs are stable. GENERAL: She is awake, alert and oriented. She is modest distress secondary to pain. Her mental status is appropriate. Speech is clear and fluent. HEENT: Unremarkable. Sclerae are white. Conjunctivae are clear. Oral mucosa is pink and moist. NECK: Supple. CHEST: Clear to excursion and deep inspiration. ABDOMEN: Obese. BACK: Thoracic spine is nontender. The lumbosacral spine is tender to palpation. EXTREMITIES: Lower extremities are symmetrical with good range of motion though she experiences significant pain with the range of motion evaluation. Light touch sensation is intact. LABORATORY DATA: As per chart. MRI scan suggest malignancy in the S1 and S2 regions. Bone scan suggest insufficiency fracture. RECOMMENDATIONS: We will further evaluate this patient with a pelvic sacral MRI to further delineate the extent of the problem. She may be a patient for lumbosacral kyphoplasty with *------* to improve her pain control. We will make this determination after further evaluation of labs and pelvic sacral MRI. DICTATING PHYSICIAN: SLY ALVARADO M.D. [id number] PHY#: [id number] ID: [id number] JOB#: [id number] ACCT: [id number] cc:SLY ALVARADO M.D. > MTDD
[2017-10-10] MEDS ORDERED: LEVOFLOXACIN 500 MG/D5W RTU 500 MG/100 ML RTUPB IV SCH (10:00)
[2017-10-10] MEDS: SENNOSIDES/DOCUSATE 8.6-50 MG 1 EACH TABLET PO SCH ×2 (10:26→17:59)
[2017-10-10] MEDS: FENTANYL 100 MCG/HR PATCH.TD72 TD SCH (10:26)
[2017-10-10] MEDS: CLONIDINE HCL 0.2 MG TABLET PO SCH ×2 (10:26→20:43)
[2017-10-10] MEDS: GABAPENTIN 400 MG CAPSULE PO SCH ×4 (10:27→20:43)
[2017-10-10] MEDS: MAGNESIUM CITRATE 296 ML BOTTLE PO PRN (10:33)
[2017-10-10] MEDS: ENOXAPARIN SODIUM INJ 40 MG/0.4 ML DISP.SYRIN SUBCUT SCH (10:49)
[2017-10-10] MEDS: INSULIN LISPRO 100 UNIT/ML 3 ML VIAL SUBCUT PRN ×2 (12:01→17:59)
[2017-10-10] MEDS: AMLODIPINE BESYLATE 10 MG TABLET PO SCH (17:59)
[2017-10-10] MEDS: METOPROLOL TARTRATE 100 MG TABLET PO SCH (18:04)
[2017-10-10] MEDS: ASPIRIN 81 MG TABLET, CHEWABLE PO SCH (18:04)
[2017-10-10] MEDS: QUETIAPINE FUMARATE 25 MG TABLET PO SCH (18:07)
--- NOTE | 2017-10-10 19:58 | PDOC PROGRESS REPORT ---
Subjective Progress Note for:: 10/10/17 Subjective:: The patient is resting in her bed. She states that her surgical procedure will have to be put off for a couple of days due to the fact that she has a urinary tract infection. She was started on IV Levaquin by Dr. Humphries. She denies fever chills. No chest pain, shortness of breath or cough. No nausea vomiting or diarrhea. No dysuria, frequency or hematuria Reason For Visit: INTRACTABLE BACK PAIN Physical Exam Vital Signs: Temp Pulse Resp BP Pulse Ox 98.5 F 71 16 140/60 H 94 10/10/17 15:06 10/10/17 15:06 10/10/17 15:06 10/10/17 15:06 10/10/17 15:06 Intake & Output 10/09/17 10/10/17 10/11/17 06:59 06:59 06:59 Intake Total 5503 908 5988 Output Total 100 Balance 2978 005 1701 Weight 97.7 kg General appearance: PRESENT: no acute distress, well-developed, well-nourished Head exam: PRESENT: atraumatic, normocephalic Mouth exam: PRESENT: moist, tongue midline Respiratory exam: PRESENT: clear to auscultation honey. ABSENT: rales, rhonchi, wheezes Cardiovascular exam: PRESENT: RRR. ABSENT: diastolic murmur, rubs, systolic murmur GI/Abdominal exam: PRESENT: normal bowel sounds, soft. ABSENT: distended, guarding, mass, organolmegaly, rebound, tenderness Rectal exam: PRESENT: deferred Extremities exam: PRESENT: full ROM. ABSENT: calf tenderness, clubbing, pedal edema Neurological exam: PRESENT: alert, awake, oriented to person, oriented to place , oriented to time, oriented to situation, CN II-XII grossly intact. ABSENT: motor sensory deficit Results Laboratory Results: 10/09/17 04:10 10/09/17 04:10 10/05/17 15:45 Total Protein 6.8 Albumin 3.4 Impressions: Lumbar Spine MRI 10/04/17 16:21 IMPRESSION: 1. FAIRLY EXTENSIVE ABNORMAL MARROW SIGNAL AND MARROW REPLACEMENT IN THE UPPER SACRUM MOST CONSISTENT WITH METASTATIC INVOLVEMENT. 2. MULTILEVEL CHRONIC DEGENERATIVE CHANGES IN THE LUMBAR SPINE DESCRIBED. Abdomen/Pelvis CT 10/04/17 19:35 IMPRESSION: 1. CORTICAL SCARRING IN THE KIDNEYS. NONOBSTRUCTING CALYCEAL CALCULUS IN THE RIGHT KIDNEY. 2. LOW-ATTENUATION LESION IN THE SPLEEN MOST LIKELY DUE TO A HEMANGIOMA. METASTATIC LESION WOULD BE LESS COMMON BUT NOT EXCLUDED. 3. FINDINGS IN THE LUMBAR SPINE AND SACRUM EVALUATED WITH SEPARATE MRI. 4. NO OTHER SIGNIFICANT FINDINGS IN THE ABDOMEN OR PELVIS. Chest CT 10/04/17 19:35 IMPRESSION: NORMAL CT OF THE CHEST WITH IV CONTRAST. Soft Tissue Neck CT 10/04/17 19:35 IMPRESSION: ESSENTIALLY NO THYROID TISSUE VISUALIZED, EITHER MARKEDLY ATROPHIC OR SURGICALLY ABSENT. NO OTHER SIGNIFICANT FINDING IN THE SOFT TISSUES OF THE NECK. Body Scan Nuclear Medicine 10/05/17 00:00 IMPRESSION: Increased activity in the sacrum worrisome for insufficiency fracture. Pelvis MRI 10/07/17 00:00 IMPRESSION: ABNORMAL APPEARANCE OF THE UPPER SACRUM DESCRIBED. NO CHANGE COMPARED TO THE PREVIOUS LUMBAR MRI ON 10/04/2017. STRESS FRACTURE IS POSSIBLE BUT METASTASIS NEEDS TO BE CONSIDERED WELL. Chest X-Ray 10/09/17 00:00 IMPRESSION: Moderate cardiomegaly. 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 She will have surgical procedure later on this week. (2) Sacral fracture, closed Is this a current diagnosis for this admission?: Yes (3) Mass of left thigh Is this a current diagnosis for this admission?: Yes Plan: Plan as above (4) Intractable back pain Is this a current diagnosis for this admission?: Yes Plan: Adequately controlled on current regimen. She has a 125 mcg f[address]anyl patch in place at this point. She has oxycodone for breakthrough pain (5) Hypertension Qualifiers: Hypertension type: essential hypertension Qualified Code(s): I10 - Essential (primary) hypertension Is this a current diagnosis for this admission?: Yes Plan: Stable (6) Diabetes mellitus Qualifiers: Diabetes mellitus type: type 2 Is this a current diagnosis for this admission?: Yes Plan: Stable on current regimen (7) Anemia Is this a current diagnosis for this admission?: Yes Plan: Secondary to hemodilution. Stable (8) Hyperkalemia Is this a current diagnosis for this admission?: Yes Plan: She will have a chemistry panel drawn in the morning (9) Urinary tract infection Is this a current diagnosis for this admission?: Yes Plan: She will continue IV Levaquin. This is the first full day of treatment. - Time Time Spent with patient: 25-34 minutes - Inpatient Certification Medical Necessity: Need for IV Antibiotics, Other - Inpatient hospitalization remains necessary. The patient requiring parenteral antibiotics. She needs a surgical procedure. Further workup for her newly diagnosed cancer of undetermined primary needs to be performed.
[2017-10-10] MEDS: ATORVASTATIN CALCIUM 10 MG TABLET PO SCH (20:43)
[2017-10-11 05:05] LABS: APPEARANCE,URINE SLIGHTLY-CLOUDY; BILIRUBIN,URINE NEGATIVE (NEGATIVE); COLOR,URINE YELLOW; GLUCOSE, URINE NEGATIVE (NEGATIVE); KETONES,URINE NEGATIVE (NEGATIVE); LEUKOCYTE ESTERASE,URINE MODERATE (NEGATIVE); NITRITE,URINE NEGATIVE (NEGATIVE); PROTEIN,URINE NEGATIVE (NEGATIVE); URINE SPECIFIC GRAVITY 1.017; UROBILINOGEN,URINE NEGATIVE mg/dL (<2.0)
[2017-10-11] MEDS: LEVOTHYROXINE SODIUM 0.112 MG TABLET PO SCH (05:22)
[2017-10-11] MEDS: LEVOTHYROXINE SODIUM 0.025 MG TABLET PO SCH (05:22)
[2017-10-11] MEDS: LANSOPRAZOLE 15 MG TAB.RAP.DR PO SCH (05:22)
[2017-10-11 05:43] LABS: ABSOLUTE BASOPHILS # (AUTO) 0.1 10^3/uL (0.0-0.2); ABSOLUTE EOSINOPHILS # (AUTO) 0.5 10^3/uL (0.0-0.6); ABSOLUTE LYMPHOCYTES (AUTO) 3.4 10^3/uL (0.5-4.7); ABSOLUTE MONOCYTES (AUTO) 1.3 10^3/uL (0.1-1.4); ABSOLUTE NEUT (AUTO) 5.7 10^3/uL (1.7-8.2); BASOPHILS % (AUTO) 0.9 % (0-2); HEMATOCRIT 37.1 % (36.0-47.0); HEMOGLOBIN 12.4 g/dL (12.0-15.5); LYMPHOCYTES % (AUTO) 30.7 % (13-45); MEAN CORPUSCULAR HEMOGLOBIN 29.9 pg (27.0-33.4); MEAN CORPUSCULAR HGB CONC 33.3 g/dL (32.0-36.0); MEAN CORPUSCULAR VOLUME 90 fl (80-97); MONOCYTES % (AUTO) 11.6 % (3-13); PLATELET COUNT 372 10^3/uL (150-450); RED BLOOD COUNT 4.14 10^6/uL (3.72-5.28); RED CELL DISTRIBUTION WIDTH 13.7 % (11.5-14.0); SEGMENTED NEUTROPHILS % (AUTO) 51.8 % (42-78); TOTAL CELLS COUNTED % (AUTO) 100 %
[2017-10-11 06:07] LABS: ANION GAP 12 (5-19); BLOOD UREA NITROGEN 14 mg/dL (7-20); CARBON DIOXIDE 31 mmol/L (22-30); CHLORIDE 97 mmol/L (98-107); GLUCOSE 123 mg/dL (75-110); POTASSIUM 4.7 mmol/L (3.6-5.0); SODIUM 139.6 mmol/L (137-145)
[2017-10-11] MEDS: OXYCODONE HCL IR 5 MG TABLET PO PRN ×3 (07:04→17:26)
--- NOTE | 2017-10-11 08:40 | PDOC PROGRESS REPORT ---
Subjective Progress Note for:: 10/11/17 Subjective:: UA w/ mod leuk est so kypho will be delayed until monday, pain stable. I reviewed myeloma labs, all negative, so still may all be related to fracture only but malignancy still possible Reason For Visit: INTRACTABLE BACK PAIN Physical Exam Vital Signs: Temp Pulse Resp BP Pulse Ox 99.1 F 61 19 132/55 H 93 10/10/17 22:52 10/10/17 22:52 10/10/17 22:52 10/10/17 22:52 10/10/17 22:52 Intake & Output 10/10/17 10/11/17 10/12/17 06:59 06:59 06:59 Intake Total 704 1062 Output Total 100 200 Balance 604 862 General appearance: PRESENT: no acute distress, well-developed, well-nourished Head exam: PRESENT: atraumatic, normocephalic Eye exam: PRESENT: conjunctiva pink, EOMI, PERRLA. ABSENT: scleral icterus Ear exam: PRESENT: normal external ear exam Mouth exam: PRESENT: moist, tongue midline Neck exam: ABSENT: carotid bruit, JVD, lymphadenopathy, thyromegaly Respiratory exam: PRESENT: clear to auscultation honey. ABSENT: rales, rhonchi, wheezes Cardiovascular exam: PRESENT: RRR. ABSENT: diastolic murmur, rubs, systolic murmur Pulses: PRESENT: normal dorsalis pedis pul Vascular exam: PRESENT: normal capillary refill GI/Abdominal exam: PRESENT: normal bowel sounds, soft. ABSENT: distended, guarding, mass, organolmegaly, rebound, tenderness Rectal exam: PRESENT: deferred Extremities exam: PRESENT: full ROM. ABSENT: calf tenderness, clubbing, pedal edema Neurological exam: PRESENT: alert, awake, oriented to person, oriented to place , oriented to time, oriented to situation, CN II-XII grossly intact. ABSENT: motor sensory deficit Psychiatric exam: PRESENT: appropriate affect, normal mood. ABSENT: homicidal ideation, suicidal ideation Skin exam: PRESENT: dry, intact, warm. ABSENT: cyanosis, rash Results Laboratory Results: 10/11/17 04:17 10/11/17 04:18 10/11/17 10/11/17 10/11/17 04:00 04:17 04:18 WBC 11.0 H RBC 4.14 Hgb 12.4 Hct 37.1 MCV 90 MCH 29.9 MCHC 33.3 RDW 13.7 Plt Count 372 Seg Neutrophils % 51.8 Lymphocytes % 30.7 Monocytes % 11.6 Eosinophils % 5.0 Basophils % 0.9 Absolute Neutrophils 5.7 Absolute Lymphocytes 3.4 Absolute Monocytes 1.3 Absolute Eosinophils 0.5 Absolute Basophils 0.1 Sodium 139.6 Potassium 4.7 Chloride 97 L Carbon Dioxide 31 H Anion Gap 12 BUN 14 Creatinine 0.63 Est GFR ( Amer) > 60 Est GFR (Non-Af Amer) > 60 Glucose 123 H Calcium 9.0 Magnesium 2.0 Urine Color YELLOW Urine Appearance SLIGHTLY-CLOUDY Urine pH 5.0 Ur Specific [place] 1.017 Urine Protein NEGATIVE Urine Glucose (UA) NEGATIVE Urine Ketones NEGATIVE Urine Blood SMALL H Urine Nitrite NEGATIVE Ur Leukocyte Esterase MODERATE H Urine WBC (Auto) 38 Urine RBC (Auto) 3 Impressions: Lumbar Spine MRI 10/04/17 16:21 IMPRESSION: 1. FAIRLY EXTENSIVE ABNORMAL MARROW SIGNAL AND MARROW REPLACEMENT IN THE UPPER SACRUM MOST CONSISTENT WITH METASTATIC INVOLVEMENT. 2. MULTILEVEL CHRONIC DEGENERATIVE CHANGES IN THE LUMBAR SPINE DESCRIBED. Abdomen/Pelvis CT 10/04/17 19:35 IMPRESSION: 1. CORTICAL SCARRING IN THE KIDNEYS. NONOBSTRUCTING CALYCEAL CALCULUS IN THE RIGHT KIDNEY. 2. LOW-ATTENUATION LESION IN THE SPLEEN MOST LIKELY DUE TO A HEMANGIOMA. METASTATIC LESION WOULD BE LESS COMMON BUT NOT EXCLUDED. 3. FINDINGS IN THE LUMBAR SPINE AND SACRUM EVALUATED WITH SEPARATE MRI. 4. NO OTHER SIGNIFICANT FINDINGS IN THE ABDOMEN OR PELVIS. Chest CT 10/04/17 19:35 IMPRESSION: NORMAL CT OF THE CHEST WITH IV CONTRAST. Soft Tissue Neck CT 10/04/17 19:35 IMPRESSION: ESSENTIALLY NO THYROID TISSUE VISUALIZED, EITHER MARKEDLY ATROPHIC OR SURGICALLY ABSENT. NO OTHER SIGNIFICANT FINDING IN THE SOFT TISSUES OF THE NECK. Body Scan Nuclear Medicine 10/05/17 00:00 IMPRESSION: Increased activity in the sacrum worrisome for insufficiency fracture. Pelvis MRI 10/07/17 00:00 IMPRESSION: ABNORMAL APPEARANCE OF THE UPPER SACRUM DESCRIBED. NO CHANGE COMPARED TO THE PREVIOUS LUMBAR MRI ON 10/04/2017. STRESS FRACTURE IS POSSIBLE BUT METASTASIS NEEDS TO BE CONSIDERED WELL. Chest X-Ray 10/09/17 00:00 IMPRESSION: Moderate cardiomegaly. 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 Is this a current diagnosis for this admission?: Yes Plan: Possible but fx only maybe the case, plan as noted (2) Pain, cancer Is this a current diagnosis for this admission?: Yes Plan: cont current pain control, will ask center pain management to take over pain control if malignancy is ruled out - Time Time Spent with patient: 35 or more minutes - Inpatient Certification Based on my medical assessment, after consideration of the patient's comorbidities, presenting symptoms, or acuity I expect that the services needed warrant INPATIENT care.: Yes I certify that my determination is in accordance with my understanding of Medicare's requirements for reasonable and necessary INPATIENT services [42 CFR 412.3e].: Yes Medical Necessity: Need for Pain Control, Need for Surgery
[2017-10-11] MEDS ORDERED: CEFTRIAXONE 1 GM/D5W RTU 1 GM/50 ML RTUPB IV SCH (10:00)
[2017-10-11] MEDS ORDERED: ALBUTEROL SULFATE HFA (90 MCG/PUFF) 200 PUFF/8.5 GM MDI IH PRN (10:00)
[2017-10-11] MEDS: SENNOSIDES/DOCUSATE 8.6-50 MG 1 EACH TABLET PO SCH ×2 (10:10→17:27)
[2017-10-11] MEDS: GABAPENTIN 400 MG CAPSULE PO SCH ×4 (10:10→22:16)
[2017-10-11] MEDS: ENOXAPARIN SODIUM INJ 40 MG/0.4 ML DISP.SYRIN SUBCUT SCH (10:11)
[2017-10-11] MEDS: CLONIDINE HCL 0.2 MG TABLET PO SCH ×2 (10:11→22:16)
[2017-10-11 10:46] LABS: APPEARANCE,URINE SLIGHTLY-CLOUDY; BILIRUBIN,URINE NEGATIVE (NEGATIVE); COLOR,URINE YELLOW; GLUCOSE, URINE NEGATIVE (NEGATIVE); KETONES,URINE NEGATIVE (NEGATIVE); LEUKOCYTE ESTERASE,URINE LARGE (NEGATIVE); NITRITE,URINE NEGATIVE (NEGATIVE); PROTEIN,URINE NEGATIVE (NEGATIVE); URINE SPECIFIC GRAVITY 1.014
[2017-10-11] MEDS: CEFTRIAXONE SODIUM 1,000 MG in DEXTROSE 5%-WATER 50 ML IV SCH (10:54)
[2017-10-11] MEDS: METOPROLOL TARTRATE 100 MG TABLET PO SCH (17:27)
[2017-10-11] MEDS: QUETIAPINE FUMARATE 25 MG TABLET PO SCH (17:28)
[2017-10-11] MEDS: ASPIRIN 81 MG TABLET, CHEWABLE PO SCH (17:28)
[2017-10-11] MEDS: AMLODIPINE BESYLATE 10 MG TABLET PO SCH (17:28)
[2017-10-11] MEDS: INSULIN LISPRO 100 UNIT/ML 3 ML VIAL SUBCUT PRN (18:01)
--- NOTE | 2017-10-11 19:42 | PDOC PROGRESS REPORT ---
Subjective Progress Note for:: 10/11/17 Subjective:: The patient is resting in her bed. She is feeling fairly well today. She states her pain is much better controlled and she slept fairly well last night. She denies fever chills. No chest pain, shortness of breath or cough. No nausea or vomiting. She states she has not had a bowel movement in several days and she is beginning to get quite uncomfortable. She has no urinary complaints. Reason For Visit: INTRACTABLE BACK PAIN Physical Exam Vital Signs: Temp Pulse Resp BP Pulse Ox 98.2 F 68 20 117/65 100 10/11/17 15:33 10/11/17 15:33 10/11/17 15:33 10/11/17 15:33 10/11/17 15:33 Intake & Output 10/10/17 10/11/17 10/12/17 06:59 06:59 06:59 Intake Total 704 1062 864 Output Total 100 200 100 Balance 604 862 764 General appearance: PRESENT: no acute distress, well-developed, well-nourished Head exam: PRESENT: atraumatic, normocephalic Mouth exam: PRESENT: moist, tongue midline Respiratory exam: PRESENT: clear to auscultation honey. ABSENT: rales, rhonchi, wheezes Cardiovascular exam: PRESENT: RRR. ABSENT: diastolic murmur, rubs, systolic murmur GI/Abdominal exam: PRESENT: normal bowel sounds, soft. ABSENT: distended, guarding, mass, organolmegaly, rebound, tenderness Rectal exam: PRESENT: deferred Extremities exam: PRESENT: full ROM. ABSENT: calf tenderness, clubbing, pedal edema Neurological exam: PRESENT: alert, awake, oriented to person, oriented to place , oriented to time, oriented to situation, CN II-XII grossly intact. ABSENT: motor sensory deficit Psychiatric exam: PRESENT: appropriate affect, normal mood. ABSENT: homicidal ideation, suicidal ideation Results Laboratory Results: 10/11/17 04:17 10/11/17 04:18 10/11/17 10/11/17 10/11/17 04:00 04:17 04:18 WBC 11.0 H RBC 4.14 Hgb 12.4 Hct 37.1 MCV 90 MCH 29.9 MCHC 33.3 RDW 13.7 Plt Count 372 Seg Neutrophils % 51.8 Lymphocytes % 30.7 Monocytes % 11.6 Eosinophils % 5.0 Basophils % 0.9 Absolute Neutrophils 5.7 Absolute Lymphocytes 3.4 Absolute Monocytes 1.3 Absolute Eosinophils 0.5 Absolute Basophils 0.1 Sodium 139.6 Potassium 4.7 Chloride 97 L Carbon Dioxide 31 H Anion Gap 12 BUN 14 Creatinine 0.63 Est GFR ( Amer) > 60 Est GFR (Non-Af Amer) > 60 Glucose 123 H Calcium 9.0 Magnesium 2.0 Urine Color YELLOW Urine Appearance SLIGHTLY-CLOUDY Urine pH 5.0 Ur Specific [place] 1.017 Urine Protein NEGATIVE Urine Glucose (UA) NEGATIVE Urine Ketones NEGATIVE Urine Blood SMALL H Urine Nitrite NEGATIVE Ur Leukocyte Esterase MODERATE H Urine WBC (Auto) 38 Urine RBC (Auto) 3 10/11/17 10:10 WBC RBC Hgb Hct MCV MCH MCHC RDW Plt Count Seg Neutrophils % Lymphocytes % Monocytes % Eosinophils % Basophils % Absolute Neutrophils Absolute Lymphocytes Absolute Monocytes Absolute Eosinophils Absolute Basophils Sodium Potassium Chloride Carbon Dioxide Anion Gap BUN Creatinine Est GFR ( Amer) Est GFR (Non-Af Amer) Glucose Calcium Magnesium Urine Color YELLOW Urine Appearance SLIGHTLY-CLOUDY Urine pH 5.0 Ur Specific [place] 1.014 Urine Protein NEGATIVE Urine Glucose (UA) NEGATIVE Urine Ketones NEGATIVE Urine Blood MODERATE H Urine Nitrite NEGATIVE Ur Leukocyte Esterase LARGE H Urine WBC (Auto) 25 Urine RBC (Auto) 5 Impressions: Lumbar Spine MRI 10/04/17 16:21 IMPRESSION: 1. FAIRLY EXTENSIVE ABNORMAL MARROW SIGNAL AND MARROW REPLACEMENT IN THE UPPER SACRUM MOST CONSISTENT WITH METASTATIC INVOLVEMENT. 2. MULTILEVEL CHRONIC DEGENERATIVE CHANGES IN THE LUMBAR SPINE DESCRIBED. Abdomen/Pelvis CT 10/04/17 19:35 IMPRESSION: 1. CORTICAL SCARRING IN THE KIDNEYS. NONOBSTRUCTING CALYCEAL CALCULUS IN THE RIGHT KIDNEY. 2. LOW-ATTENUATION LESION IN THE SPLEEN MOST LIKELY DUE TO A HEMANGIOMA. METASTATIC LESION WOULD BE LESS COMMON BUT NOT EXCLUDED. 3. FINDINGS IN THE LUMBAR SPINE AND SACRUM EVALUATED WITH SEPARATE MRI. 4. NO OTHER SIGNIFICANT FINDINGS IN THE ABDOMEN OR PELVIS. Chest CT 10/04/17 19:35 IMPRESSION: NORMAL CT OF THE CHEST WITH IV CONTRAST. Soft Tissue Neck CT 10/04/17 19:35 IMPRESSION: ESSENTIALLY NO THYROID TISSUE VISUALIZED, EITHER MARKEDLY ATROPHIC OR SURGICALLY ABSENT. NO OTHER SIGNIFICANT FINDING IN THE SOFT TISSUES OF THE NECK. Body Scan Nuclear Medicine 10/05/17 00:00 IMPRESSION: Increased activity in the sacrum worrisome for insufficiency fracture. Pelvis MRI 10/07/17 00:00 IMPRESSION: ABNORMAL APPEARANCE OF THE UPPER SACRUM DESCRIBED. NO CHANGE COMPARED TO THE PREVIOUS LUMBAR MRI ON 10/04/2017. STRESS FRACTURE IS POSSIBLE BUT METASTASIS NEEDS TO BE CONSIDERED WELL. Chest X-Ray 10/09/17 00:00 IMPRESSION: Moderate cardiomegaly. 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 He is not sure whether this is a malignancy or not. It is a little atypical in its presentation. She will have surgical procedure later on this week. (2) Intractable back pain Is this a current diagnosis for this admission?: Yes Plan: Stable on 125 mcg of fentanyl patch. She has oxycodone available for breakthrough pain. Her intractable pain is due to her sacral fracture and possible underlying malignancy. (3) Urinary tract infection Is this a current diagnosis for this admission?: Yes Plan: T on urine obtained today. She was placed on IV Levaquin. There is some resistance at times to fluoroquinolones he patient still has evidence of urinary tract infection. I am going to change her to IV Rocephin today. I did obtain a urine culture today so that we possibly have something to direct therapy. This will be the first full day of treatment with IV Rocephin. She did receive 1 day of IV Levaquin yesterday. (4) Sacral fracture, closed Is this a current diagnosis for this admission?: Yes Plan: Possibly a pathologic fracture. (5) Mass of left thigh Is this a current diagnosis for this admission?: Yes Plan: Plan as above (6) Hypertension Qualifiers: Hypertension type: essential hypertension Qualified Code(s): I10 - Essential (primary) hypertension Is this a current diagnosis for this admission?: Yes Plan: Stable (7) Diabetes mellitus Qualifiers: Diabetes mellitus type: type 2 Is this a current diagnosis for this admission?: Yes (8) Anemia Is this a current diagnosis for this admission?: Yes (9) Hyperkalemia Is this a current diagnosis for this admission?: Yes Plan: Resolved. She will have a chemistry panel drawn in the morning - Time Time Spent with patient: 25-34 minutes - Inpatient Certification Medical Necessity: Need for IV Antibiotics, Need for Surgery, Other - Inpatient hospitalization remains necessary. The patient's requiring parenteral antibiotics for a urinary tract infection. She is going to seek a surgical procedure performed on Monday. Timing of disposition will be determined by her clinical course
[2017-10-11] MEDS ORDERED: DOCUSATE SODIUM 100 MG CAPSULE PO ONE (20:00)
[2017-10-11] MEDS ORDERED: LACTULOSE SYRUP 20 GM/30 ML UDCUP PO ONE (20:00)
[2017-10-11] MEDS: ATORVASTATIN CALCIUM 10 MG TABLET PO SCH (22:16)
[2017-10-12] MEDS: LACTULOSE SYRUP 20 GM/30 ML UDCUP PO SCH ×2 (05:29→13:11)
[2017-10-12] MEDS: LANSOPRAZOLE 15 MG TAB.RAP.DR PO SCH (05:29)
[2017-10-12] MEDS: LEVOTHYROXINE SODIUM 0.025 MG TABLET PO SCH (05:29)
[2017-10-12] MEDS: OXYCODONE HCL IR 5 MG TABLET PO PRN ×2 (05:30→13:11)
[2017-10-12] MEDS: LEVOTHYROXINE SODIUM 0.112 MG TABLET PO SCH (05:30)
[2017-10-12 06:08] LABS: ABSOLUTE BASOPHILS # (AUTO) 0.1 10^3/uL (0.0-0.2); ABSOLUTE EOSINOPHILS # (AUTO) 0.5 10^3/uL (0.0-0.6); ABSOLUTE MONOCYTES (AUTO) 1.2 10^3/uL (0.1-1.4); ABSOLUTE NEUT (AUTO) 5.2 10^3/uL (1.7-8.2); BASOPHILS % (AUTO) 0.7 % (0-2); HEMATOCRIT 36.6 % (36.0-47.0); HEMOGLOBIN 12.2 g/dL (12.0-15.5); LYMPHOCYTES % (AUTO) 30.4 % (13-45); MEAN CORPUSCULAR HEMOGLOBIN 30.5 pg (27.0-33.4); MEAN CORPUSCULAR HGB CONC 33.4 g/dL (32.0-36.0); MEAN CORPUSCULAR VOLUME 91 fl (80-97); PLATELET COUNT 359 10^3/uL (150-450); RED CELL DISTRIBUTION WIDTH 13.5 % (11.5-14.0); SEGMENTED NEUTROPHILS % (AUTO) 51.9 % (42-78); TOTAL CELLS COUNTED % (AUTO) 100 %
[2017-10-12 06:29] LABS: ANION GAP 8 (5-19); BLOOD UREA NITROGEN 14 mg/dL (7-20); CALCIUM 9.4 mg/dL (8.4-10.2); CARBON DIOXIDE 33 mmol/L (22-30); CHLORIDE 99 mmol/L (98-107); GLUCOSE 129 mg/dL (75-110); POTASSIUM 4.9 mmol/L (3.6-5.0); SODIUM 140.1 mmol/L (137-145)
--- NOTE | 2017-10-12 08:33 | PDOC PROGRESS REPORT ---
Subjective Progress Note for:: 10/12/17 Subjective:: No acute events overnight, again had long discussion w. family at bedside about plan >35 m in discussion Reason For Visit: INTRACTABLE BACK PAIN Physical Exam Vital Signs: Temp Pulse Resp BP Pulse Ox 98.2 F 68 20 117/65 100 10/11/17 15:33 10/11/17 15:33 10/11/17 15:33 10/11/17 15:33 10/11/17 15:33 Intake & Output 10/11/17 10/12/17 10/13/17 06:59 06:59 06:59 Intake Total 1062 864 Output Total 200 100 Balance 862 764 General appearance: PRESENT: no acute distress, well-developed, well-nourished Head exam: PRESENT: atraumatic, normocephalic Eye exam: PRESENT: conjunctiva pink, EOMI, PERRLA. ABSENT: scleral icterus Ear exam: PRESENT: normal external ear exam Mouth exam: PRESENT: moist, tongue midline Neck exam: ABSENT: carotid bruit, JVD, lymphadenopathy, thyromegaly Respiratory exam: PRESENT: clear to auscultation honey. ABSENT: rales, rhonchi, wheezes Cardiovascular exam: PRESENT: RRR. ABSENT: diastolic murmur, rubs, systolic murmur Pulses: PRESENT: normal dorsalis pedis pul Vascular exam: PRESENT: normal capillary refill GI/Abdominal exam: PRESENT: normal bowel sounds, soft. ABSENT: distended, guarding, mass, organolmegaly, rebound, tenderness Rectal exam: PRESENT: deferred Extremities exam: PRESENT: full ROM. ABSENT: calf tenderness, clubbing, pedal edema Neurological exam: PRESENT: alert, awake, oriented to person, oriented to place , oriented to time, oriented to situation, CN II-XII grossly intact. ABSENT: motor sensory deficit Psychiatric exam: PRESENT: appropriate affect, normal mood. ABSENT: homicidal ideation, suicidal ideation Skin exam: PRESENT: dry, intact, warm. ABSENT: cyanosis, rash Results Laboratory Results: 10/12/17 05:29 10/12/17 05:29 10/11/17 10/12/17 10/12/17 10:10 05:29 05:29 WBC 10.0 RBC 4.00 Hgb 12.2 Hct 36.6 MCV 91 MCH 30.5 MCHC 33.4 RDW 13.5 Plt Count 359 Seg Neutrophils % 51.9 Lymphocytes % 30.4 Monocytes % 12.0 Eosinophils % 5.0 Basophils % 0.7 Absolute Neutrophils 5.2 Absolute Lymphocytes 3.0 Absolute Monocytes 1.2 Absolute Eosinophils 0.5 Absolute Basophils 0.1 Sodium 140.1 Potassium 4.9 Chloride 99 Carbon Dioxide 33 H Anion Gap 8 BUN 14 Creatinine 0.56 Est GFR ( Amer) > 60 Est GFR (Non-Af Amer) > 60 Glucose 129 H Calcium 9.4 Magnesium 2.3 Urine Color YELLOW Urine Appearance SLIGHTLY-CLOUDY Urine pH 5.0 Ur Specific [place] 1.014 Urine Protein NEGATIVE Urine Glucose (UA) NEGATIVE Urine Ketones NEGATIVE Urine Blood MODERATE H Urine Nitrite NEGATIVE Ur Leukocyte Esterase LARGE H Urine WBC (Auto) 25 Urine RBC (Auto) 5 Impressions: Lumbar Spine MRI 10/04/17 16:21 IMPRESSION: 1. FAIRLY EXTENSIVE ABNORMAL MARROW SIGNAL AND MARROW REPLACEMENT IN THE UPPER SACRUM MOST CONSISTENT WITH METASTATIC INVOLVEMENT. 2. MULTILEVEL CHRONIC DEGENERATIVE CHANGES IN THE LUMBAR SPINE DESCRIBED. Abdomen/Pelvis CT 10/04/17 19:35 IMPRESSION: 1. CORTICAL SCARRING IN THE KIDNEYS. NONOBSTRUCTING CALYCEAL CALCULUS IN THE RIGHT KIDNEY. 2. LOW-ATTENUATION LESION IN THE SPLEEN MOST LIKELY DUE TO A HEMANGIOMA. METASTATIC LESION WOULD BE LESS COMMON BUT NOT EXCLUDED. 3. FINDINGS IN THE LUMBAR SPINE AND SACRUM EVALUATED WITH SEPARATE MRI. 4. NO OTHER SIGNIFICANT FINDINGS IN THE ABDOMEN OR PELVIS. Chest CT 10/04/17 19:35 IMPRESSION: NORMAL CT OF THE CHEST WITH IV CONTRAST. Soft Tissue Neck CT 10/04/17 19:35 IMPRESSION: ESSENTIALLY NO THYROID TISSUE VISUALIZED, EITHER MARKEDLY ATROPHIC OR SURGICALLY ABSENT. NO OTHER SIGNIFICANT FINDING IN THE SOFT TISSUES OF THE NECK. Body Scan Nuclear Medicine 10/05/17 00:00 IMPRESSION: Increased activity in the sacrum worrisome for insufficiency fracture. Pelvis MRI 10/07/17 00:00 IMPRESSION: ABNORMAL APPEARANCE OF THE UPPER SACRUM DESCRIBED. NO CHANGE COMPARED TO THE PREVIOUS LUMBAR MRI ON 10/04/2017. STRESS FRACTURE IS POSSIBLE BUT METASTASIS NEEDS TO BE CONSIDERED WELL. Chest X-Ray 10/09/17 00:00 IMPRESSION: Moderate cardiomegaly. 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
[2017-10-12] MEDS: CEFTRIAXONE SODIUM 1,000 MG in DEXTROSE 5%-WATER 50 ML IV SCH (09:30)
[2017-10-12] MEDS: ENOXAPARIN SODIUM INJ 40 MG/0.4 ML DISP.SYRIN SUBCUT SCH (09:30)
[2017-10-12] MEDS: FENTANYL 25 MCG/HR PATCH.TD72 TD SCH (09:30)
[2017-10-12] MEDS: GABAPENTIN 400 MG CAPSULE PO SCH ×4 (09:30→21:18)
[2017-10-12] MEDS: CLONIDINE HCL 0.2 MG TABLET PO SCH ×2 (09:30→21:18)
[2017-10-12] MEDS: DOCUSATE SODIUM 100 MG CAPSULE PO SCH ×2 (09:30→17:29)
[2017-10-12] MEDS: SENNOSIDES/DOCUSATE 8.6-50 MG 1 EACH TABLET PO SCH ×2 (09:30→17:29)
[2017-10-12] MEDS ORDERED: MORPHINE SULFATE 10 MG/ML INJ IV ONE (17:00)
[2017-10-12] MEDS: AMLODIPINE BESYLATE 10 MG TABLET PO SCH (17:27)
[2017-10-12] MEDS: ASPIRIN 81 MG TABLET, CHEWABLE PO SCH (17:29)
[2017-10-12] MEDS: METOPROLOL TARTRATE 100 MG TABLET PO SCH (17:30)
[2017-10-12] MEDS: QUETIAPINE FUMARATE 25 MG TABLET PO SCH (17:31)
[2017-10-12 18:02] LABS: APPEARANCE,URINE CLEAR; BILIRUBIN,URINE NEGATIVE (NEGATIVE); COLOR,URINE YELLOW; GLUCOSE, URINE NEGATIVE (NEGATIVE); KETONES,URINE NEGATIVE (NEGATIVE); LEUKOCYTE ESTERASE,URINE MODERATE (NEGATIVE); NITRITE,URINE NEGATIVE (NEGATIVE); PROTEIN,URINE NEGATIVE (NEGATIVE); URINE SPECIFIC GRAVITY 1.013
[2017-10-12] MEDS: INSULIN LISPRO 100 UNIT/ML 3 ML VIAL SUBCUT PRN (18:07)
--- NOTE | 2017-10-12 18:27 | PDOC PROGRESS REPORT ---
Subjective Subjective:: The patient is a 72-year-old female with a past medical history significant for diabetes. The patient was brought to the emergency room with intractable back pain and found to have a pathologic sacral fracture. She had an MRI of the pelvis which revealed an area of solid mass in the left thigh. This was suspicious for malignancy. The patient has been scheduled for a kyphoplasty with biopsy to be performed by Dr. Gomez from pain management. Dr. Humphries is following as well. Her procedure got put off this week due to the fact that she developed a urinary tract infection. This is now been treated and she is scheduled to have her procedure performed in the morning. Overall pain control has been an issue and we certainly appreciate Dr. Gomez' s assistance. Today when I saw her she has eaten all of her dinner. She states that she has good appetite and she is finally begun having some bowel movements after being treated for her constipation. She denies acute pain at this time. She did require 1 dose of IV morphine this afternoon but now is comfortable. She has had no fever or shaking chills. No chest pain, shortness of breath or cough. No abdominal pain. She is voiding without difficulty at this point. Reason For Visit: INTRACTABLE BACK PAIN Physical Exam Vital Signs: Temp Pulse Resp BP Pulse Ox 98.0 F 73 12 121/78 91 L 10/12/17 12:09 10/12/17 12:09 10/12/17 12:09 10/12/17 12:09 10/12/17 12:09 Intake & Output 10/11/17 10/12/17 10/13/17 06:59 06:59 06:59 Intake Total 1062 864 Output Total 200 100 Balance 862 764 General appearance: PRESENT: no acute distress, obese, well-developed, well- nourished Head exam: PRESENT: atraumatic, normocephalic Mouth exam: PRESENT: moist, tongue midline Neck exam: ABSENT: carotid bruit, JVD, lymphadenopathy, thyromegaly Respiratory exam: PRESENT: clear to auscultation honey. ABSENT: rales, rhonchi, wheezes Cardiovascular exam: PRESENT: RRR. ABSENT: diastolic murmur, rubs, systolic murmur GI/Abdominal exam: PRESENT: normal bowel sounds, soft. ABSENT: distended, guarding, mass, organolmegaly, rebound, tenderness Rectal exam: PRESENT: deferred Extremities exam: PRESENT: full ROM. ABSENT: calf tenderness, clubbing, pedal edema Neurological exam: PRESENT: alert, awake, oriented to person, oriented to place , oriented to time, oriented to situation, CN II-XII grossly intact. ABSENT: motor sensory deficit Psychiatric exam: PRESENT: appropriate affect, normal mood. ABSENT: homicidal ideation, suicidal ideation Skin exam: PRESENT: dry, intact, warm. ABSENT: cyanosis, rash Results Laboratory Results: 10/12/17 05:29 10/12/17 05:29 10/12/17 10/12/17 10/12/17 05:29 05:29 17:20 WBC 10.0 RBC 4.00 Hgb 12.2 Hct 36.6 MCV 91 MCH 30.5 MCHC 33.4 RDW 13.5 Plt Count 359 Seg Neutrophils % 51.9 Lymphocytes % 30.4 Monocytes % 12.0 Eosinophils % 5.0 Basophils % 0.7 Absolute Neutrophils 5.2 Absolute Lymphocytes 3.0 Absolute Monocytes 1.2 Absolute Eosinophils 0.5 Absolute Basophils 0.1 Sodium 140.1 Potassium 4.9 Chloride 99 Carbon Dioxide 33 H Anion Gap 8 BUN 14 Creatinine 0.56 Est GFR ( Amer) > 60 Est GFR (Non-Af Amer) > 60 Glucose 129 H Calcium 9.4 Magnesium 2.3 Urine Color YELLOW Urine Appearance CLEAR Urine pH 6.0 Ur Specific [place] 1.013 Urine Protein NEGATIVE Urine Glucose (UA) NEGATIVE Urine Ketones NEGATIVE Urine Blood SMALL H Urine Nitrite NEGATIVE Ur Leukocyte Esterase MODERATE H Urine WBC (Auto) 14 Urine RBC (Auto) 4 Impressions: Lumbar Spine MRI 10/04/17 16:21 IMPRESSION: 1. FAIRLY EXTENSIVE ABNORMAL MARROW SIGNAL AND MARROW REPLACEMENT IN THE UPPER SACRUM MOST CONSISTENT WITH METASTATIC INVOLVEMENT. 2. MULTILEVEL CHRONIC DEGENERATIVE CHANGES IN THE LUMBAR SPINE DESCRIBED. Abdomen/Pelvis CT 10/04/17 19:35 IMPRESSION: 1. CORTICAL SCARRING IN THE KIDNEYS. NONOBSTRUCTING CALYCEAL CALCULUS IN THE RIGHT KIDNEY. 2. LOW-ATTENUATION LESION IN THE SPLEEN MOST LIKELY DUE TO A HEMANGIOMA. METASTATIC LESION WOULD BE LESS COMMON BUT NOT EXCLUDED. 3. FINDINGS IN THE LUMBAR SPINE AND SACRUM EVALUATED WITH SEPARATE MRI. 4. NO OTHER SIGNIFICANT FINDINGS IN THE ABDOMEN OR PELVIS. Chest CT 10/04/17 19:35 IMPRESSION: NORMAL CT OF THE CHEST WITH IV CONTRAST. Soft Tissue Neck CT 10/04/17 19:35 IMPRESSION: ESSENTIALLY NO THYROID TISSUE VISUALIZED, EITHER MARKEDLY ATROPHIC OR SURGICALLY ABSENT. NO OTHER SIGNIFICANT FINDING IN THE SOFT TISSUES OF THE NECK. Body Scan Nuclear Medicine 10/05/17 00:00 IMPRESSION: Increased activity in the sacrum worrisome for insufficiency fracture. Pelvis MRI 10/07/17 00:00 IMPRESSION: ABNORMAL APPEARANCE OF THE UPPER SACRUM DESCRIBED. NO CHANGE COMPARED TO THE PREVIOUS LUMBAR MRI ON 10/04/2017. STRESS FRACTURE IS POSSIBLE BUT METASTASIS NEEDS TO BE CONSIDERED WELL. Chest X-Ray 10/09/17 00:00 IMPRESSION: Moderate cardiomegaly. 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 He is not sure whether this is a malignancy or not. It is a little atypical in its presentation. She will have her kyphoplasty with biopsy performed tomorrow. (2) Intractable back pain Is this a current diagnosis for this admission?: Yes Plan: Stable on 125 mcg fentanyl patch. She has oxycodone available for breakthrough pain. Her intractable pain is due to her sacral fracture and possible underlying malignancy. She did have an episode where she sat down hard on the toilet today and had increased pain. I gave her 1 extra dose of IV morphine and she is now comfortable. (3) Urinary tract infection Is this a current diagnosis for this admission?: Yes Plan: She was initially placed on IV Levaquin. Unfortunately the initial sample was not sent for culture. She did have increased white count in spite of antibiotics. Her antibiotic therapy was changed to IV Rocephin yesterday. This is day #2 of treatment with IV Rocephin. She did receive 1 day of IV Levaquin. I repeated a urine yesterday and urine culture is pending and is negative to date. (4) Sacral fracture, closed Is this a current diagnosis for this admission?: Yes Plan: Possibly a pathologic fracture. She is going to have a kyphoplasty tomorrow. (5) Mass of left thigh Is this a current diagnosis for this admission?: Yes Plan: Plan as above (6) Hypertension Qualifiers: Hypertension type: essential hypertension Qualified Code(s): I10 - Essential (primary) hypertension Is this a current diagnosis for this admission?: Yes Plan: Stable (7) Diabetes mellitus Qualifiers: Diabetes mellitus type: type 2 Is this a current diagnosis for this admission?: Yes Plan: Stable on current regimen (8) Anemia Is this a current diagnosis for this admission?: Yes Plan: Secondary to hemodilution. Stable (9) Hyperkalemia Is this a current diagnosis for this admission?: Yes Plan: Resolved. She will have a chemistry panel drawn in the morning - Time Time Spent with patient: 25-34 minutes - Inpatient Certification Medical Necessity: Need for Pain Control - Inpatient hospitalization remains necessary. The patient is going to have a kyphoplasty with biopsy performed tomorrow. We need to get her pain under adequate control so that she can go home. I suspect she will be in the hospital over the weekend. Her biopsy results should be back by Monday., Need for Surgery, Other
[2017-10-12] MEDS: ATORVASTATIN CALCIUM 10 MG TABLET PO SCH (21:17)
[2017-10-12] MEDS: ACETAMINOPHEN 325 MG TABLET PO PRN (21:38)
[2017-10-13 04:52] LABS: ABSOLUTE BASOPHILS # (AUTO) 0.1 10^3/uL (0.0-0.2); ABSOLUTE EOSINOPHILS # (AUTO) 0.5 10^3/uL (0.0-0.6); ABSOLUTE LYMPHOCYTES (AUTO) 2.3 10^3/uL (0.5-4.7); ABSOLUTE MONOCYTES (AUTO) 1.1 10^3/uL (0.1-1.4); ABSOLUTE NEUT (AUTO) 4.5 10^3/uL (1.7-8.2); BASOPHILS % (AUTO) 0.8 % (0-2); EOSINOPHILS % (AUTO) 6.4 % (0-6); HEMOGLOBIN 11.6 g/dL (12.0-15.5); LYMPHOCYTES % (AUTO) 26.8 % (13-45); MEAN CORPUSCULAR HEMOGLOBIN 30.5 pg (27.0-33.4); MEAN CORPUSCULAR HGB CONC 34.2 g/dL (32.0-36.0); MEAN CORPUSCULAR VOLUME 89 fl (80-97); MONOCYTES % (AUTO) 12.8 % (3-13); PLATELET COUNT 343 10^3/uL (150-450); RED BLOOD COUNT 3.81 10^6/uL (3.72-5.28); RED CELL DISTRIBUTION WIDTH 13.3 % (11.5-14.0); SEGMENTED NEUTROPHILS % (AUTO) 53.2 % (42-78); TOTAL CELLS COUNTED % (AUTO) 100 %; WHITE BLOOD COUNT 8.5 10^3/uL (4.0-10.5)
[2017-10-13] MEDS ORDERED: CEFAZOLIN 1 GM/D5W RTU 1 GM/50 ML RTUPB IV PRN (05:00)
[2017-10-13 05:16] LABS: ANION GAP 7 (5-19); BLOOD UREA NITROGEN 14 mg/dL (7-20); CALCIUM 8.9 mg/dL (8.4-10.2); CARBON DIOXIDE 34 mmol/L (22-30); CHLORIDE 102 mmol/L (98-107); GLUCOSE 137 mg/dL (75-110); POTASSIUM 4.2 mmol/L (3.6-5.0); SODIUM 142.8 mmol/L (137-145)
[2017-10-13] MEDS: LANSOPRAZOLE 15 MG TAB.RAP.DR PO SCH (05:48)
[2017-10-13] MEDS: LEVOTHYROXINE SODIUM 0.112 MG TABLET PO SCH (05:52)
[2017-10-13] MEDS: LEVOTHYROXINE SODIUM 0.025 MG TABLET PO SCH (05:53)
[2017-10-13] MEDS ORDERED: LIDOCAINE 1% INJ-PF (10 MG/ML) 30 ML SDV ONE (07:51)
[2017-10-13] MEDS ORDERED: MIDAZOLAM 2 MG/2 ML INJ ONE (08:44)
[2017-10-13] MEDS ORDERED: PROPOFOL INJ 200 MG/20 ML VIAL IV ONE (08:45)
[2017-10-13] MEDS ORDERED: SODIUM BICARBONATE 8.4% INJ 50 MEQ/50 ML DISP.SYRIN ONE (08:57)
--- NOTE | 2017-10-13 09:13 | PDOC PROGRESS REPORT ---
Subjective Progress Note for:: 10/13/17 Subjective:: Patient quite upset and in pain this morning. She states that they have discontinued all her pain medications and only given her tylenol over the last 12 hours. She is currently NPO and nurses state that she is scheduled for Kyphoplasty around 10am this morning. ROS is negative except for pain in her sacrum. Reason For Visit: INTRACTABLE BACK PAIN Physical Exam Vital Signs: Temp Pulse Resp BP Pulse Ox 98.3 F 72 17 122/55 L 100 10/13/17 08:34 10/13/17 08:34 10/13/17 08:34 10/13/17 08:34 10/13/17 08:34 Intake & Output 10/12/17 10/13/17 10/14/17 06:59 06:59 06:59 Intake Total 864 1566 Output Total 100 Balance 764 1566 Exam: No respiratory distress, but in obvious pain. Respiratory exam: PRESENT: unlabored Extremities exam: ABSENT: pedal edema Neurological exam: PRESENT: alert, awake, oriented to person, oriented to place , oriented to time, oriented to situation Psychiatric exam: PRESENT: anxious, appropriate affect Focused psych exam: PRESENT: restlessness Skin exam: PRESENT: normal color Results Laboratory Results: 10/13/17 04:03 10/13/17 04:03 10/12/17 10/13/17 10/13/17 17:20 04:03 04:03 WBC 8.5 RBC 3.81 Hgb 11.6 L Hct 34.0 L MCV 89 MCH 30.5 MCHC 34.2 RDW 13.3 Plt Count 343 Seg Neutrophils % 53.2 Lymphocytes % 26.8 Monocytes % 12.8 Eosinophils % 6.4 H Basophils % 0.8 Absolute Neutrophils 4.5 Absolute Lymphocytes 2.3 Absolute Monocytes 1.1 Absolute Eosinophils 0.5 Absolute Basophils 0.1 Sodium 142.8 Potassium 4.2 Chloride 102 Carbon Dioxide 34 H Anion Gap 7 BUN 14 Creatinine 0.57 Est GFR ( Amer) > 60 Est GFR (Non-Af Amer) > 60 Glucose 137 H Calcium 8.9 Magnesium 2.1 Urine Color YELLOW Urine Appearance CLEAR Urine pH 6.0 Ur Specific [place] 1.013 Urine Protein NEGATIVE Urine Glucose (UA) NEGATIVE Urine Ketones NEGATIVE Urine Blood SMALL H Urine Nitrite NEGATIVE Ur Leukocyte Esterase MODERATE H Urine WBC (Auto) 14 Urine RBC (Auto) 4 Impressions: Lumbar Spine MRI 10/04/17 16:21 IMPRESSION: 1. FAIRLY EXTENSIVE ABNORMAL MARROW SIGNAL AND MARROW REPLACEMENT IN THE UPPER SACRUM MOST CONSISTENT WITH METASTATIC INVOLVEMENT. 2. MULTILEVEL CHRONIC DEGENERATIVE CHANGES IN THE LUMBAR SPINE DESCRIBED. Abdomen/Pelvis CT 10/04/17 19:35 IMPRESSION: 1. CORTICAL SCARRING IN THE KIDNEYS. NONOBSTRUCTING CALYCEAL CALCULUS IN THE RIGHT KIDNEY. 2. LOW-ATTENUATION LESION IN THE SPLEEN MOST LIKELY DUE TO A HEMANGIOMA. METASTATIC LESION WOULD BE LESS COMMON BUT NOT EXCLUDED. 3. FINDINGS IN THE LUMBAR SPINE AND SACRUM EVALUATED WITH SEPARATE MRI. 4. NO OTHER SIGNIFICANT FINDINGS IN THE ABDOMEN OR PELVIS. Chest CT 10/04/17 19:35 IMPRESSION: NORMAL CT OF THE CHEST WITH IV CONTRAST. Soft Tissue Neck CT 10/04/17 19:35 IMPRESSION: ESSENTIALLY NO THYROID TISSUE VISUALIZED, EITHER MARKEDLY ATROPHIC OR SURGICALLY ABSENT. NO OTHER SIGNIFICANT FINDING IN THE SOFT TISSUES OF THE NECK. Body Scan Nuclear Medicine 10/05/17 00:00 IMPRESSION: Increased activity in the sacrum worrisome for insufficiency fracture. Pelvis MRI 10/07/17 00:00 IMPRESSION: ABNORMAL APPEARANCE OF THE UPPER SACRUM DESCRIBED. NO CHANGE COMPARED TO THE PREVIOUS LUMBAR MRI ON 10/04/2017. STRESS FRACTURE IS POSSIBLE BUT METASTASIS NEEDS TO BE CONSIDERED WELL. Chest X-Ray 10/09/17 00:00 IMPRESSION: Moderate cardiomegaly. Otherwise unremarkable study Extremity Ultrasound 10/09/17 00:00 IMPRESSION: No discrete left upper thigh/ greater trochanter region mass is identified at ultrasound Assessment & Plan - Diagnosis (1) Sacral fracture, closed Is this a current diagnosis for this admission?: Yes Plan: For Kyphoplasty today with biopsy to help determine cause. (2) Intractable back pain Is this a current diagnosis for this admission?: Yes Plan: She continues Duragesic. Nurses report this remains. Her Oxycodone order " fell off" after 7 days. So, she has had no narcotic breakthrough medication over the last 12 hours. I have ordered IV morphine while she is NPO and renewed the oxycodone order for after the procedure. (3) Anemia Qualifiers: Anemia type: unspecified type Qualified Code(s): D64.9 - Anemia, unspecified Is this a current diagnosis for this admission?: Yes Plan: This remains stable. Myeloma labs were negative. - Plan Summary Plan Summary: Await pathology report from biopsy. Consider increasing long-acting pain meds tomorrow.
[2017-10-13] MEDS ORDERED: OXYCODONE-ACETAMINOPHEN 5-325 MG TABLET PO PRN ×2 (09:38)
[2017-10-13] MEDS ORDERED: DIPHENHYDRAMINE HCL 50 MG/ML VIAL IV PRN (09:38)
[2017-10-13] MEDS ORDERED: MORPHINE SULFATE 10 MG/ML INJ IV PRN (09:38)
[2017-10-13] MEDS ORDERED: PROMETHAZINE HCL INJ 25 MG/1 ML VIAL IV PRN ×2 (09:38)
[2017-10-13] MEDS ORDERED: MEPERIDINE HCL/PF INJ 25 MG/1 ML DISP.SYRIN IV PRN (09:38)
[2017-10-13] MEDS ORDERED: FENTANYL CITRATE INJ/PF 100 MCG/2 ML AMPUL IV PRN ×3 (09:38)
[2017-10-13] MEDS: CLONIDINE HCL 0.2 MG TABLET PO SCH ×2 (09:40→22:35)
[2017-10-13] MEDS: ENOXAPARIN SODIUM INJ 40 MG/0.4 ML DISP.SYRIN SUBCUT SCH (09:40)
[2017-10-13] MEDS: GABAPENTIN 400 MG CAPSULE PO SCH ×4 (09:40→22:34)
[2017-10-13] MEDS: SENNOSIDES/DOCUSATE 8.6-50 MG 1 EACH TABLET PO SCH ×2 (09:40→18:47)
[2017-10-13] MEDS: DOCUSATE SODIUM 100 MG CAPSULE PO SCH ×2 (09:40→18:47)
[2017-10-13] MEDS ORDERED: MORPHINE SULFATE 10 MG/ML INJ ONE (10:45)
--- NOTE | 2017-10-13 11:14 | OPERATIVE REPORT E ---
Operative Report NAME: BELLO DIAZ : 1945 AGE: 72Y DATE OF SURGERY: 10/13/2017 ROOM: 529 PREOPERATIVE DIAGNOSIS: Sacral insufficiency fracture, S1-S2, with probable metastatic disease. POSTOPERATIVE DIAGNOSIS: Sacral insufficiency fracture, S1-S2, with probable metastatic disease. OPERATIVE PROCEDURE: Bilateral balloon sacroplasty and OsteoCool lesioning with bone marrow aspirate and bone marrow biopsy bilaterally. SURGEON: SLY ALVARADO M.D. INDICATIONS: Intractable pain and probable tumor. SPECIMENS REMOVED: Bone marrow aspirate and bone marrow core biopsy specimens. ANESTHESIA: MAC. BLOOD LOSS: Approximately 40 mL. COMPLICATIONS: None. PROCEDURE NOTE: After obtaining informed consent, advised the patient of the risks and benefits, including serious neurological injury, bleeding, infection, allergic reaction, paralysis, nerve injury, unsatisfactory pain control, paralysis and , she was taken to the operating room and placed comfortably in the prone position. She was prepped and draped over the lumbosacral region. Chlorhexidine was utilized. Appropriate drying time was allowed. After draping, she was evaluated under fluoroscopy. The sacrum was readily identified in the AP and lateral biplanar views with fluoroscopy. Suitable entrance site beginning in the right sacral region was identified over the skin. This was anesthetized with 1% lidocaine with bicarb. A small incision was made into the skin and the expressed trocar was advanced, entering at approximately the S3 region and advancing parallel to the sacroiliac joint up to the mid portion of S1. This was then repeated on the left. Drills were used as necessary. When suitable positioning was identified and confirmed, aspirates were taken followed by bone marrow cores. These were sent with Pathology and prepared by Pathology with path [facility] care [facility] assistant director present. OsteoCool lesioning was then performed bilaterally at the S1 level and the probes were then withdrawn, upon completion of this, to the S2 level. Once OsteoCool lesioning was performed, balloons were inflated at S2 levels and the trocars and balloons were advanced and inflated at the S1 levels. Upon completion of the balloon lesioning, the cavities were filled with cement and a total of 4.2 mL of cement were utilized on the right side and a total of 3.8 mL of cement were utilized on the left. There was no evidence of extravasation and no evidence of foraminal filling or filling within the spinal canal at the sacral levels. Once the cement was hardened, all instrumentation was removed. The patient was then taken to the PACU for further postoperative care and monitoring. She remained neurologically and hemodynamically intact. DICTATING PHYSICIAN: SLY ALVARADO M.D. [id number] PHY#: [id number] ID: [id number] JOB#: [id number] ACCT: [id number] cc:SLY ALVARADO M.D. >
[2017-10-13] MEDS ORDERED: CEFAZOLIN INJ 1 GM VIAL ONE (11:49)
[2017-10-13] MEDS: FENTANYL 100 MCG/HR PATCH.TD72 TD SCH (11:58)
[2017-10-13] MEDS: CEFTRIAXONE SODIUM 1,000 MG in DEXTROSE 5%-WATER 50 ML IV SCH (11:58)
[2017-10-13] MEDS: OXYCODONE HCL IR 5 MG TABLET PO PRN ×2 (12:12→18:48)
[2017-10-13] MEDS ORDERED: MORPHINE SULFATE 10 MG/ML INJ IV ONE (12:15)
--- NOTE | 2017-10-13 12:48 | RADIOLOGY REPORT (SQ) ---
EXAM DESCRIPTION: SACRUM AND COCCYX; NO CHG FLUORO COMPLETED DATE/TIME: 10/13/2017 12:38 pm REASON FOR STUDY: SACRAL ABLATION AND KYPHOPLASTY ASST WITH FLUORO IN OR COMPARISON: MRI pelvis 10/07/2017 Bone scan 10/07/2017 CT abdomen pelvis 10/04/2017 MRI lumbar spine 10/04/2017 FLUOROSCOPY TIME: 7.5 minutes 94 digital C-arm images saved to PACS. TECHNIQUE: Intra-operative images acquired during surgical procedure to evaluate progress. NUMBER OF IMAGES: 94 digital C-arm images LIMITATIONS: None. FINDINGS: Imaging and fluoro during sacroplasty in the OR. Please see the operative report for furt her details. IMPRESSION: Intra procedural imaging and fluoro COMMENT: Quality ID [id number]: Final reports for procedures using fluoroscopy that document radiation exp osure indices, or exposure time and number of fluorographic images (if radiation exposure indices are not available) Please consult full operative report of the attending physician for description of the procedure. TECHNICAL DOCUMENTATION: JOB ID: [id number] [employer]- All Rights Reserved Reading location - IP/workstation name: [facility]-RR
--- NOTE | 2017-10-13 12:48 | RADIOLOGY REPORT (SQ) ---
EXAM DESCRIPTION: SACRUM AND COCCYX; NO CHG FLUORO COMPLETED DATE/TIME: 10/13/2017 12:38 pm REASON FOR STUDY: SACRAL ABLATION AND KYPHOPLASTY ASST WITH FLUORO IN OR COMPARISON: MRI pelvis 10/07/2017 Bone scan 10/07/2017 CT abdomen pelvis 10/04/2017 MRI lumbar spine 10/04/2017 FLUOROSCOPY TIME: 7.5 minutes 94 digital C-arm images saved to PACS. TECHNIQUE: Intra-operative images acquired during surgical procedure to evaluate progress. NUMBER OF IMAGES: 94 digital C-arm images LIMITATIONS: None. FINDINGS: Imaging and fluoro during sacroplasty in the OR. Please see the operative report for furt her details. IMPRESSION: Intra procedural imaging and fluoro COMMENT: Quality ID [id number]: Final reports for procedures using fluoroscopy that document radiation exp osure indices, or exposure time and number of fluorographic images (if radiation exposure indices are not available) Please consult full operative report of the attending physician for description of the procedure. TECHNICAL DOCUMENTATION: JOB ID: [id number] [employer]- All Rights Reserved Reading location - IP/workstation name: [email or web address]
[2017-10-13] MEDS ORDERED: CEFAZOLIN 1 GM/D5W RTU 1 GM/50 ML RTUPB IV SCH ×2 (14:00→18:00)
[2017-10-13] MEDS ORDERED: OXYCODONE HCL IR 5 MG TABLET PO ONE (14:00)
[2017-10-13] MEDS: HYDROMORPHONE HCL INJ/PF 2 MG/ML AMPULE IV PRN ×2 (14:44→18:48)
[2017-10-13] MEDS: QUETIAPINE FUMARATE 25 MG TABLET PO SCH (18:47)
[2017-10-13] MEDS: METOPROLOL TARTRATE 100 MG TABLET PO SCH (18:47)
[2017-10-13] MEDS: CEFAZOLIN 1 GM/D5W RTU 1 GM/50 ML RTUPB IV SCH (18:47)
[2017-10-13] MEDS: ASPIRIN 81 MG TABLET, CHEWABLE PO SCH (18:47)
[2017-10-13] MEDS: AMLODIPINE BESYLATE 10 MG TABLET PO SCH (18:47)
--- NOTE | 2017-10-13 20:22 | PDOC PROGRESS REPORT ---
Subjective Progress Note for:: 10/13/17 Subjective:: Had significant pain after procedure failure. Doing better now. Denies lower extremity weakness. No fever or chills, no chest pain no palpitations. Reason For Visit: INTRACTABLE BACK PAIN Physical Exam Vital Signs: Temp Pulse Resp BP Pulse Ox 98.4 F 96 20 142/54 H 98 10/13/17 16:00 10/13/17 16:00 10/13/17 16:00 10/13/17 16:00 10/13/17 16:00 Intake & Output 10/12/17 10/13/17 10/14/17 06:59 06:59 06:59 Intake Total 864 1566 1440 Output Total 100 750 Balance 764 1566 690 GEN: NAD, well-developed, well-nourished CV: RRR, NL S1S2 LUNGS: CTA bilaterally ABDOMEN Soft, NT, +BS EXTERMITIES: No e/c/c NEURO: Alert, oriented 3, no acute weakness Results Laboratory Results: 10/13/17 04:03 10/13/17 04:03 10/13/17 10/13/17 04:03 04:03 WBC 8.5 RBC 3.81 Hgb 11.6 L Hct 34.0 L MCV 89 MCH 30.5 MCHC 34.2 RDW 13.3 Plt Count 343 Seg Neutrophils % 53.2 Lymphocytes % 26.8 Monocytes % 12.8 Eosinophils % 6.4 H Basophils % 0.8 Absolute Neutrophils 4.5 Absolute Lymphocytes 2.3 Absolute Monocytes 1.1 Absolute Eosinophils 0.5 Absolute Basophils 0.1 Sodium 142.8 Potassium 4.2 Chloride 102 Carbon Dioxide 34 H Anion Gap 7 BUN 14 Creatinine 0.57 Est GFR ( Amer) > 60 Est GFR (Non-Af Amer) > 60 Glucose 137 H Calcium 8.9 Magnesium 2.1 10/11/17 10:10 Catheterized Urine Urine Culture - Final NO GROWTH 2 DAYS Impressions: Lumbar Spine MRI 10/04/17 16:21 IMPRESSION: 1. FAIRLY EXTENSIVE ABNORMAL MARROW SIGNAL AND MARROW REPLACEMENT IN THE UPPER SACRUM MOST CONSISTENT WITH METASTATIC INVOLVEMENT. 2. MULTILEVEL CHRONIC DEGENERATIVE CHANGES IN THE LUMBAR SPINE DESCRIBED. Abdomen/Pelvis CT 10/04/17 19:35 IMPRESSION: 1. CORTICAL SCARRING IN THE KIDNEYS. NONOBSTRUCTING CALYCEAL CALCULUS IN THE RIGHT KIDNEY. 2. LOW-ATTENUATION LESION IN THE SPLEEN MOST LIKELY DUE TO A HEMANGIOMA. METASTATIC LESION WOULD BE LESS COMMON BUT NOT EXCLUDED. 3. FINDINGS IN THE LUMBAR SPINE AND SACRUM EVALUATED WITH SEPARATE MRI. 4. NO OTHER SIGNIFICANT FINDINGS IN THE ABDOMEN OR PELVIS. Chest CT 10/04/17 19:35 IMPRESSION: NORMAL CT OF THE CHEST WITH IV CONTRAST. Soft Tissue Neck CT 10/04/17 19:35 IMPRESSION: ESSENTIALLY NO THYROID TISSUE VISUALIZED, EITHER MARKEDLY ATROPHIC OR SURGICALLY ABSENT. NO OTHER SIGNIFICANT FINDING IN THE SOFT TISSUES OF THE NECK. Body Scan Nuclear Medicine 10/05/17 00:00 IMPRESSION: Increased activity in the sacrum worrisome for insufficiency fracture. Pelvis MRI 10/07/17 00:00 IMPRESSION: ABNORMAL APPEARANCE OF THE UPPER SACRUM DESCRIBED. NO CHANGE COMPARED TO THE PREVIOUS LUMBAR MRI ON 10/04/2017. STRESS FRACTURE IS POSSIBLE BUT METASTASIS NEEDS TO BE CONSIDERED WELL. Chest X-Ray 10/09/17 00:00 IMPRESSION: Moderate cardiomegaly. 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 S/p kyphoplasty with biopsy today. Follow pathology report. (2) Intractable back pain Is this a current diagnosis for this admission?: Yes Plan: Continue on 125 mcg fentanyl patch. She has oxycodone available for breakthrough pain. Her intractable pain is due to her sacral fracture and possible underlying malignancy. (3) Urinary tract infection Is this a current diagnosis for this admission?: Yes Plan: She was initially placed on IV Levaquin. Unfortunately the initial sample was not sent for culture. She did have increased white count in spite of antibiotics. Her antibiotic therapy was changed to IV Rocephin 10/11/17. She did receive 1 day of IV Levaquin. F/u repeat urine culture result. (4) Sacral fracture, closed Is this a current diagnosis for this admission?: Yes Plan: Possibly a pathologic fracture. S/p kyphoplasty today. (5) Mass of left thigh Is this a current diagnosis for this admission?: Yes Plan: Plan as above (6) Hypertension Qualifiers: Hypertension type: essential hypertension Qualified Code(s): I10 - Essential (primary) hypertension Is this a current diagnosis for this admission?: Yes Plan: Stable (7) Diabetes mellitus Qualifiers: Diabetes mellitus type: type 2 Is this a current diagnosis for this admission?: Yes Plan: Stable on current regimen (8) Anemia Is this a current diagnosis for this admission?: Yes Plan: Stable
[2017-10-13] MEDS: INSULIN LISPRO 100 UNIT/ML 3 ML VIAL SUBCUT PRN (22:34)
[2017-10-13] MEDS: ATORVASTATIN CALCIUM 10 MG TABLET PO SCH (22:35)
[2017-10-14] MEDS: CEFAZOLIN 1 GM/D5W RTU 1 GM/50 ML RTUPB IV SCH ×3 (01:51→18:56)
[2017-10-14] MEDS: HYDROMORPHONE HCL INJ/PF 2 MG/ML AMPULE IV PRN ×4 (05:20→18:54)
[2017-10-14 05:21] LABS: ABSOLUTE BASOPHILS # (AUTO) 0.1 10^3/uL (0.0-0.2); ABSOLUTE EOSINOPHILS # (AUTO) 0.6 10^3/uL (0.0-0.6); ABSOLUTE LYMPHOCYTES (AUTO) 3.1 10^3/uL (0.5-4.7); ABSOLUTE MONOCYTES (AUTO) 1.4 10^3/uL (0.1-1.4); ABSOLUTE NEUT (AUTO) 5.8 10^3/uL (1.7-8.2); BASOPHILS % (AUTO) 0.6 % (0-2); EOSINOPHILS % (AUTO) 5.6 % (0-6); HEMATOCRIT 34.3 % (36.0-47.0); HEMOGLOBIN 11.3 g/dL (12.0-15.5); MEAN CORPUSCULAR HEMOGLOBIN 30.1 pg (27.0-33.4); MEAN CORPUSCULAR VOLUME 91 fl (80-97); MONOCYTES % (AUTO) 12.9 % (3-13); PLATELET COUNT 429 10^3/uL (150-450); RED BLOOD COUNT 3.76 10^6/uL (3.72-5.28); RED CELL DISTRIBUTION WIDTH 13.6 % (11.5-14.0); SEGMENTED NEUTROPHILS % (AUTO) 52.9 % (42-78); TOTAL CELLS COUNTED % (AUTO) 100 %
[2017-10-14] MEDS: LEVOTHYROXINE SODIUM 0.025 MG TABLET PO SCH (05:23)
[2017-10-14] MEDS: LEVOTHYROXINE SODIUM 0.112 MG TABLET PO SCH (05:23)
[2017-10-14] MEDS: LANSOPRAZOLE 15 MG TAB.RAP.DR PO SCH (05:23)
[2017-10-14 05:47] LABS: ANION GAP 9 (5-19); BLOOD UREA NITROGEN 15 mg/dL (7-20); CALCIUM 8.7 mg/dL (8.4-10.2); CARBON DIOXIDE 33 mmol/L (22-30); CHLORIDE 99 mmol/L (98-107); GLUCOSE 136 mg/dL (75-110); POTASSIUM 4.7 mmol/L (3.6-5.0); SODIUM 141.2 mmol/L (137-145)
[2017-10-14] MEDS: OXYCODONE HCL IR 5 MG TABLET PO PRN ×2 (06:44→13:54)
[2017-10-14] MEDS: CLONIDINE HCL 0.2 MG TABLET PO SCH (10:08)
[2017-10-14] MEDS: SENNOSIDES/DOCUSATE 8.6-50 MG 1 EACH TABLET PO SCH ×2 (10:08→18:55)
[2017-10-14] MEDS: DOCUSATE SODIUM 100 MG CAPSULE PO SCH ×2 (10:09→18:55)
[2017-10-14] MEDS: GABAPENTIN 400 MG CAPSULE PO SCH ×3 (10:09→18:56)
[2017-10-14] MEDS: ENOXAPARIN SODIUM INJ 40 MG/0.4 ML DISP.SYRIN SUBCUT SCH (10:10)
--- NOTE | 2017-10-14 11:37 | PDOC PROGRESS REPORT ---
Subjective Progress Note for:: 10/14/17 Subjective:: Patient states pain is better controlled today. She has had difficulty with pain after other surgeries as well. She states that it is most comfortable to sit on the toilet. She had difficulty taking a bath this morning. Unable to sit for this. She is eating well. Is ambulating some. ROS: No nausea. No constipation. No dyspnea. Back pain only. Reason For Visit: INTRACTABLE BACK PAIN Physical Exam Vital Signs: Temp Pulse Resp BP Pulse Ox 98.3 F 78 18 142/58 H 92 10/14/17 08:00 10/14/17 08:00 10/14/17 08:00 10/14/17 08:00 10/14/17 08:00 Intake & Output 10/13/17 10/14/17 10/15/17 06:59 06:59 06:59 Intake Total 1566 2060 Output Total 750 Balance 1566 1310 General appearance: PRESENT: no acute distress Respiratory exam: PRESENT: clear to auscultation honey, unlabored Cardiovascular exam: PRESENT: RRR Pulses: PRESENT: normal dorsalis pedis pul GI/Abdominal exam: PRESENT: normal bowel sounds, soft. ABSENT: tenderness Extremities exam: ABSENT: pedal edema Neurological exam: PRESENT: alert, awake Psychiatric exam: PRESENT: appropriate affect Skin exam: PRESENT: normal color Results Laboratory Results: 10/14/17 04:15 10/14/17 04:15 10/14/17 10/14/17 04:15 04:15 WBC 11.0 H RBC 3.76 Hgb 11.3 L Hct 34.3 L MCV 91 MCH 30.1 MCHC 33.0 RDW 13.6 Plt Count 429 Seg Neutrophils % 52.9 Lymphocytes % 28.0 Monocytes % 12.9 Eosinophils % 5.6 Basophils % 0.6 Absolute Neutrophils 5.8 Absolute Lymphocytes 3.1 Absolute Monocytes 1.4 Absolute Eosinophils 0.6 Absolute Basophils 0.1 Sodium 141.2 Potassium 4.7 Chloride 99 Carbon Dioxide 33 H Anion Gap 9 BUN 15 Creatinine 0.78 Est GFR ( Amer) > 60 Est GFR (Non-Af Amer) > 60 Glucose 136 H Calcium 8.7 10/12/17 17:20 Catheterized Urine Urine Culture - Final NO GROWTH 2 DAYS 10/11/17 10:10 Catheterized Urine Urine Culture - Final NO GROWTH 2 DAYS Impressions: Lumbar Spine MRI 10/04/17 16:21 IMPRESSION: 1. FAIRLY EXTENSIVE ABNORMAL MARROW SIGNAL AND MARROW REPLACEMENT IN THE UPPER SACRUM MOST CONSISTENT WITH METASTATIC INVOLVEMENT. 2. MULTILEVEL CHRONIC DEGENERATIVE CHANGES IN THE LUMBAR SPINE DESCRIBED. Abdomen/Pelvis CT 10/04/17 19:35 IMPRESSION: 1. CORTICAL SCARRING IN THE KIDNEYS. NONOBSTRUCTING CALYCEAL CALCULUS IN THE RIGHT KIDNEY. 2. LOW-ATTENUATION LESION IN THE SPLEEN MOST LIKELY DUE TO A HEMANGIOMA. METASTATIC LESION WOULD BE LESS COMMON BUT NOT EXCLUDED. 3. FINDINGS IN THE LUMBAR SPINE AND SACRUM EVALUATED WITH SEPARATE MRI. 4. NO OTHER SIGNIFICANT FINDINGS IN THE ABDOMEN OR PELVIS. Chest CT 10/04/17 19:35 IMPRESSION: NORMAL CT OF THE CHEST WITH IV CONTRAST. Soft Tissue Neck CT 10/04/17 19:35 IMPRESSION: ESSENTIALLY NO THYROID TISSUE VISUALIZED, EITHER MARKEDLY ATROPHIC OR SURGICALLY ABSENT. NO OTHER SIGNIFICANT FINDING IN THE SOFT TISSUES OF THE NECK. Body Scan Nuclear Medicine 10/05/17 00:00 IMPRESSION: Increased activity in the sacrum worrisome for insufficiency fracture. Pelvis MRI 10/07/17 00:00 IMPRESSION: ABNORMAL APPEARANCE OF THE UPPER SACRUM DESCRIBED. NO CHANGE COMPARED TO THE PREVIOUS LUMBAR MRI ON 10/04/2017. STRESS FRACTURE IS POSSIBLE BUT METASTASIS NEEDS TO BE CONSIDERED WELL. Chest X-Ray 10/09/17 00:00 IMPRESSION: Moderate cardiomegaly. Otherwise unremarkable study Extremity Ultrasound 10/09/17 00:00 IMPRESSION: No discrete left upper thigh/ greater trochanter region mass is identified at ultrasound Fluoroscopy 10/13/17 00:00 IMPRESSION: Intra procedural imaging and fluoro Sacrum and Coccyx X-Ray 10/13/17 00:00 IMPRESSION: Intra procedural imaging and fluoro Assessment & Plan - Diagnosis (1) Sacral fracture, closed Is this a current diagnosis for this admission?: Yes Plan: s/p kyphoplasty yesterday. Still with significant pain. Awaiting pathology report. (2) Intractable back pain Is this a current diagnosis for this admission?: Yes Plan: Continue Duragesic 125 mcg. She is also requiring PO oxycodone RTC as well as IV Dilaudid PRN. Continue this regimen for now. Hope to start weaning the dilaudid off in a day or two. She is on Senna-S BID for prophylaxis while on narcotics. I will try to order a donut pillow so she can sit in chair. (3) Anemia Qualifiers: Anemia type: unspecified type Qualified Code(s): D64.9 - Anemia, unspecified Is this a current diagnosis for this admission?: Yes Plan: Very stable. Consider stopping daily CBCs.
--- NOTE | 2017-10-14 11:50 | PROGRESS NOTE E ---
Progress Note NAME: BELLO DIAZ : 1945 AGE: 72Y DATE: 10/14/2017 ROOM: 529 SUBJECTIVE: Postop day #1, the patient notes that she had significant pain following surgery which was treated eventually well with Dilaudid. She notes since that time she has been out of bed this morning although she has small twinges of pain, she feels that it is significantly better compared to the pretreatment state with and without the use of medications. She does not have any neurological complaints. OBJECTIVE: VITAL SIGNS: Stable. GENERAL: On examination, she is awake, alert and oriented. She is calm and interactive. Her surgical sites look quite well. No drainage or hematomas are noted superficially. She has good movement of her lower extremities and good sensation. ASSESSMENT: Status post bilateral OsteoCool sacroplasty. PLAN: She is welcome to followup in the Pain Clinic on an outpatient basis as needed with continued p.o. medications as well as needed for pain control. Oral Dilaudid, oral oxycodone, or oral hydrocodone should be sufficient tailored in doses. No other recommendations are made at this time. Dressing may be changed as needed or removed in three days. DICTATING PHYSICIAN: SLY ALVARADO M.D. [id number] PHY#: [id number] ID: [id number] JOB#: [id number] ACCT: [id number] cc:SLY ALVARADO M.D. >
--- NOTE | 2017-10-14 16:31 | PDOC PROGRESS REPORT ---
Subjective Progress Note for:: 10/14/17 Subjective:: Back pain doing better at this time, although still. Denies lower extremity weakness. No fever or chills, no chest pain or palpitations. Reason For Visit: INTRACTABLE BACK PAIN Physical Exam Vital Signs: Temp Pulse Resp BP Pulse Ox 98.5 F 70 18 133/44 H 97 10/14/17 12:00 10/14/17 12:00 10/14/17 12:00 10/14/17 12:00 10/14/17 12:00 Intake & Output 10/13/17 10/14/17 10/15/17 06:59 06:59 06:59 Intake Total 1566 2060 Output Total 750 Balance 1566 1310 GEN: NAD, well-developed, well-nourished CV: RRR, NL S1S2 LUNGS: CTA bilaterally ABDOMEN Soft, NT, +BS EXTERMITIES: No e/c/c NEURO: Alert, oriented 3, no acute weakness Results Laboratory Results: 10/14/17 04:15 10/14/17 04:15 10/14/17 10/14/17 04:15 04:15 WBC 11.0 H RBC 3.76 Hgb 11.3 L Hct 34.3 L MCV 91 MCH 30.1 MCHC 33.0 RDW 13.6 Plt Count 429 Seg Neutrophils % 52.9 Lymphocytes % 28.0 Monocytes % 12.9 Eosinophils % 5.6 Basophils % 0.6 Absolute Neutrophils 5.8 Absolute Lymphocytes 3.1 Absolute Monocytes 1.4 Absolute Eosinophils 0.6 Absolute Basophils 0.1 Sodium 141.2 Potassium 4.7 Chloride 99 Carbon Dioxide 33 H Anion Gap 9 BUN 15 Creatinine 0.78 Est GFR ( Amer) > 60 Est GFR (Non-Af Amer) > 60 Glucose 136 H Calcium 8.7 10/12/17 17:20 Catheterized Urine Urine Culture - Final NO GROWTH 2 DAYS Impressions: Lumbar Spine MRI 10/04/17 16:21 IMPRESSION: 1. FAIRLY EXTENSIVE ABNORMAL MARROW SIGNAL AND MARROW REPLACEMENT IN THE UPPER SACRUM MOST CONSISTENT WITH METASTATIC INVOLVEMENT. 2. MULTILEVEL CHRONIC DEGENERATIVE CHANGES IN THE LUMBAR SPINE DESCRIBED. Abdomen/Pelvis CT 10/04/17 19:35 IMPRESSION: 1. CORTICAL SCARRING IN THE KIDNEYS. NONOBSTRUCTING CALYCEAL CALCULUS IN THE RIGHT KIDNEY. 2. LOW-ATTENUATION LESION IN THE SPLEEN MOST LIKELY DUE TO A HEMANGIOMA. METASTATIC LESION WOULD BE LESS COMMON BUT NOT EXCLUDED. 3. FINDINGS IN THE LUMBAR SPINE AND SACRUM EVALUATED WITH SEPARATE MRI. 4. NO OTHER SIGNIFICANT FINDINGS IN THE ABDOMEN OR PELVIS. Chest CT 10/04/17 19:35 IMPRESSION: NORMAL CT OF THE CHEST WITH IV CONTRAST. Soft Tissue Neck CT 10/04/17 19:35 IMPRESSION: ESSENTIALLY NO THYROID TISSUE VISUALIZED, EITHER MARKEDLY ATROPHIC OR SURGICALLY ABSENT. NO OTHER SIGNIFICANT FINDING IN THE SOFT TISSUES OF THE NECK. Body Scan Nuclear Medicine 10/05/17 00:00 IMPRESSION: Increased activity in the sacrum worrisome for insufficiency fracture. Pelvis MRI 10/07/17 00:00 IMPRESSION: ABNORMAL APPEARANCE OF THE UPPER SACRUM DESCRIBED. NO CHANGE COMPARED TO THE PREVIOUS LUMBAR MRI ON 10/04/2017. STRESS FRACTURE IS POSSIBLE BUT METASTASIS NEEDS TO BE CONSIDERED WELL. Chest X-Ray 10/09/17 00:00 IMPRESSION: Moderate cardiomegaly. 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 S/p kyphoplasty with biopsy 10/13/17. Followup pathology report. (2) Intractable back pain Is this a current diagnosis for this admission?: Yes Plan: Continue on 125 mcg fentanyl patch. She has oxycodone available for breakthrough pain. Also on Dilaudid as needed. Her intractable pain is due to her sacral fracture and possible underlying malignancy. Will continue pain management for now. Oncology follow-up appreciated. (3) Urinary tract infection Is this a current diagnosis for this admission?: Yes Plan: She was initially placed on IV Levaquin. Unfortunately the initial sample was not sent for culture. She did have increased white count in spite of antibiotics. Her antibiotic therapy was changed to IV Rocephin 10/11/17. She did receive 1 day of IV Levaquin. Urine culture without growth to date. (4) Sacral fracture, closed Is this a current diagnosis for this admission?: Yes Plan: Possibly a pathologic fracture. S/p kyphoplasty 10/13/17. (5) Mass of left thigh Is this a current diagnosis for this admission?: Yes Plan: Plan as above (6) Hypertension Qualifiers: Hypertension type: essential hypertension Qualified Code(s): I10 - Essential (primary) hypertension Is this a current diagnosis for this admission?: Yes Plan: Stable (7) Diabetes mellitus Qualifiers: Diabetes mellitus type: type 2 Is this a current diagnosis for this admission?: Yes Plan: Stable on current regimen (8) Anemia Is this a current diagnosis for this admission?: Yes Plan: Stable
[2017-10-14] MEDS: ASPIRIN 81 MG TABLET, CHEWABLE PO SCH (18:55)
[2017-10-14] MEDS: METOPROLOL TARTRATE 100 MG TABLET PO SCH (18:55)
[2017-10-14] MEDS: AMLODIPINE BESYLATE 10 MG TABLET PO SCH (18:55)
[2017-10-14] MEDS: QUETIAPINE FUMARATE 25 MG TABLET PO SCH (18:57)
[2017-10-15] MEDS: ATORVASTATIN CALCIUM 10 MG TABLET PO SCH ×2 (00:06→21:00)
[2017-10-15] MEDS: CLONIDINE HCL 0.2 MG TABLET PO SCH ×3 (00:07→21:00)
[2017-10-15] MEDS: GABAPENTIN 400 MG CAPSULE PO SCH ×5 (00:08→21:00)
[2017-10-15] MEDS: OXYCODONE HCL IR 5 MG TABLET PO PRN ×5 (00:09→19:53)
[2017-10-15] MEDS: CEFAZOLIN 1 GM/D5W RTU 1 GM/50 ML RTUPB IV SCH (03:06)
[2017-10-15] MEDS: LANSOPRAZOLE 15 MG TAB.RAP.DR PO SCH (05:20)
[2017-10-15] MEDS: LEVOTHYROXINE SODIUM 0.025 MG TABLET PO SCH (05:20)
[2017-10-15] MEDS: LEVOTHYROXINE SODIUM 0.112 MG TABLET PO SCH (05:20)
[2017-10-15] MEDS ORDERED: FENTANYL 100 MCG/HR PATCH.TD72 TD ONE (08:45)
[2017-10-15] MEDS ORDERED: FENTANYL 100 MCG/HR PATCH.TD72 TD SCH (10:00)
--- NOTE | 2017-10-15 10:00 | PDOC PROGRESS REPORT ---
Subjective Progress Note for:: 10/15/17 Subjective:: Still has significant flareups of back pain after minimal activity such as going to the bathroom. Denies lower extremity weakness. No fever or chills, no chest pain or palpitations. No chest pain or shortness of breath or palpitations, no fever or chills. Reason For Visit: INTRACTABLE BACK PAIN Physical Exam Vital Signs: Temp Pulse Resp BP Pulse Ox 98.5 F 64 18 125/55 L 93 10/15/17 07:29 10/15/17 07:29 10/15/17 07:29 10/15/17 07:29 10/15/17 07:29 Intake & Output 10/14/17 10/15/17 10/16/17 06:59 06:59 06:59 Intake Total 2060 2390 Output Total 750 Balance 1310 2390 GEN: NAD, well-developed, well-nourished CV: RRR, NL S1S2 LUNGS: CTA bilaterally ABDOMEN Soft, NT, +BS EXTERMITIES: No e/c/c NEURO: Alert, oriented 3, no acute weakness Results Laboratory Results: 10/14/17 04:15 10/14/17 04:15 10/12/17 17:20 Catheterized Urine Urine Culture - Final NO GROWTH 2 DAYS Impressions: Lumbar Spine MRI 10/04/17 16:21 IMPRESSION: 1. FAIRLY EXTENSIVE ABNORMAL MARROW SIGNAL AND MARROW REPLACEMENT IN THE UPPER SACRUM MOST CONSISTENT WITH METASTATIC INVOLVEMENT. 2. MULTILEVEL CHRONIC DEGENERATIVE CHANGES IN THE LUMBAR SPINE DESCRIBED. Abdomen/Pelvis CT 10/04/17 19:35 IMPRESSION: 1. CORTICAL SCARRING IN THE KIDNEYS. NONOBSTRUCTING CALYCEAL CALCULUS IN THE RIGHT KIDNEY. 2. LOW-ATTENUATION LESION IN THE SPLEEN MOST LIKELY DUE TO A HEMANGIOMA. METASTATIC LESION WOULD BE LESS COMMON BUT NOT EXCLUDED. 3. FINDINGS IN THE LUMBAR SPINE AND SACRUM EVALUATED WITH SEPARATE MRI. 4. NO OTHER SIGNIFICANT FINDINGS IN THE ABDOMEN OR PELVIS. Chest CT 10/04/17 19:35 IMPRESSION: NORMAL CT OF THE CHEST WITH IV CONTRAST. Soft Tissue Neck CT 10/04/17 19:35 IMPRESSION: ESSENTIALLY NO THYROID TISSUE VISUALIZED, EITHER MARKEDLY ATROPHIC OR SURGICALLY ABSENT. NO OTHER SIGNIFICANT FINDING IN THE SOFT TISSUES OF THE NECK. Body Scan Nuclear Medicine 10/05/17 00:00 IMPRESSION: Increased activity in the sacrum worrisome for insufficiency fracture. Pelvis MRI 10/07/17 00:00 IMPRESSION: ABNORMAL APPEARANCE OF THE UPPER SACRUM DESCRIBED. NO CHANGE COMPARED TO THE PREVIOUS LUMBAR MRI ON 10/04/2017. STRESS FRACTURE IS POSSIBLE BUT METASTASIS NEEDS TO BE CONSIDERED WELL. Chest X-Ray 10/09/17 00:00 IMPRESSION: Moderate cardiomegaly. 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 S/p kyphoplasty with biopsy 10/13/17. Followup pathology report. (2) Intractable back pain Is this a current diagnosis for this admission?: Yes Plan: Continue on 125 mcg fentanyl patch. She has Dilaudid and oxycodone available for breakthrough pain. Her intractable pain is due to her sacral fracture and possible underlying malignancy. Will continue pain management for now. Oncology following. (3) Urinary tract infection Is this a current diagnosis for this admission?: Yes Plan: She was initially placed on IV Levaquin. Unfortunately the initial sample was not sent for culture. She did have increased white count in spite of antibiotics. Her antibiotic therapy was changed to IV Rocephin 10/11/17. She did receive 1 day of IV Levaquin. Urine culture without growth to date. (4) Sacral fracture, closed Is this a current diagnosis for this admission?: Yes Plan: Possibly a pathologic fracture. S/p kyphoplasty 10/13/17. (5) Mass of left thigh Is this a current diagnosis for this admission?: Yes Plan: Plan as above (6) Hypertension Qualifiers: Hypertension type: essential hypertension Qualified Code(s): I10 - Essential (primary) hypertension Is this a current diagnosis for this admission?: Yes Plan: Stable (7) Diabetes mellitus Qualifiers: Diabetes mellitus type: type 2 Is this a current diagnosis for this admission?: Yes Plan: Stable on current regimen (8) Anemia Is this a current diagnosis for this admission?: Yes Plan: Stable
[2017-10-15] MEDS: FENTANYL 25 MCG/HR PATCH.TD72 TD SCH (10:12)
[2017-10-15] MEDS: ENOXAPARIN SODIUM INJ 40 MG/0.4 ML DISP.SYRIN SUBCUT SCH (11:44)
[2017-10-15] MEDS: DOCUSATE SODIUM 100 MG CAPSULE PO SCH ×2 (11:45→18:58)
[2017-10-15] MEDS: SENNOSIDES/DOCUSATE 8.6-50 MG 1 EACH TABLET PO SCH ×2 (11:45→18:59)
[2017-10-15] MEDS: INSULIN LISPRO 100 UNIT/ML 3 ML VIAL SUBCUT PRN (12:54)
[2017-10-15] MEDS: AMLODIPINE BESYLATE 10 MG TABLET PO SCH (18:58)
[2017-10-15] MEDS: METOPROLOL TARTRATE 100 MG TABLET PO SCH (18:59)
[2017-10-15] MEDS: ASPIRIN 81 MG TABLET, CHEWABLE PO SCH (18:59)
[2017-10-15] MEDS: QUETIAPINE FUMARATE 25 MG TABLET PO SCH (21:00)
[2017-10-16] MEDS: OXYCODONE HCL IR 5 MG TABLET PO PRN ×3 (04:23→15:29)
[2017-10-16] MEDS: LEVOTHYROXINE SODIUM 0.112 MG TABLET PO SCH (06:23)
[2017-10-16] MEDS: LEVOTHYROXINE SODIUM 0.025 MG TABLET PO SCH (06:23)
[2017-10-16] MEDS: LANSOPRAZOLE 15 MG TAB.RAP.DR PO SCH (06:23)
--- NOTE | 2017-10-16 09:50 | PDOC PROGRESS REPORT ---
Subjective Progress Note for:: 10/16/17 Subjective:: Patient still states that she is in severe pain. Very difficult for her to find a comfortable position. No BM since surgery 3 days ago. Eating OK. ROS: NO nausea. Positive constipation. No dyspnea. Pain radiates down the back of her leg. Reason For Visit: INTRACTABLE BACK PAIN Physical Exam Vital Signs: Temp Pulse Resp BP Pulse Ox 98.5 F 76 19 182/66 H 94 10/16/17 07:27 10/16/17 07:27 10/16/17 07:27 10/16/17 07:27 10/16/17 07:27 Intake & Output 10/15/17 10/16/17 10/17/17 06:59 06:59 06:59 Intake Total 2390 881 Balance 2390 881 General appearance: PRESENT: no acute distress Head exam: PRESENT: normocephalic Respiratory exam: PRESENT: clear to auscultation honey, unlabored Cardiovascular exam: PRESENT: RRR GI/Abdominal exam: PRESENT: normal bowel sounds, soft. ABSENT: tenderness Extremities exam: ABSENT: pedal edema Neurological exam: PRESENT: alert, awake Psychiatric exam: PRESENT: appropriate affect Skin exam: PRESENT: normal color Results Laboratory Results: 10/14/17 04:15 10/14/17 04:15 Impressions: Lumbar Spine MRI 10/04/17 16:21 IMPRESSION: 1. FAIRLY EXTENSIVE ABNORMAL MARROW SIGNAL AND MARROW REPLACEMENT IN THE UPPER SACRUM MOST CONSISTENT WITH METASTATIC INVOLVEMENT. 2. MULTILEVEL CHRONIC DEGENERATIVE CHANGES IN THE LUMBAR SPINE DESCRIBED. Abdomen/Pelvis CT 10/04/17 19:35 IMPRESSION: 1. CORTICAL SCARRING IN THE KIDNEYS. NONOBSTRUCTING CALYCEAL CALCULUS IN THE RIGHT KIDNEY. 2. LOW-ATTENUATION LESION IN THE SPLEEN MOST LIKELY DUE TO A HEMANGIOMA. METASTATIC LESION WOULD BE LESS COMMON BUT NOT EXCLUDED. 3. FINDINGS IN THE LUMBAR SPINE AND SACRUM EVALUATED WITH SEPARATE MRI. 4. NO OTHER SIGNIFICANT FINDINGS IN THE ABDOMEN OR PELVIS. Chest CT 10/04/17 19:35 IMPRESSION: NORMAL CT OF THE CHEST WITH IV CONTRAST. Soft Tissue Neck CT 10/04/17 19:35 IMPRESSION: ESSENTIALLY NO THYROID TISSUE VISUALIZED, EITHER MARKEDLY ATROPHIC OR SURGICALLY ABSENT. NO OTHER SIGNIFICANT FINDING IN THE SOFT TISSUES OF THE NECK. Body Scan Nuclear Medicine 10/05/17 00:00 IMPRESSION: Increased activity in the sacrum worrisome for insufficiency fracture. Pelvis MRI 10/07/17 00:00 IMPRESSION: ABNORMAL APPEARANCE OF THE UPPER SACRUM DESCRIBED. NO CHANGE COMPARED TO THE PREVIOUS LUMBAR MRI ON 10/04/2017. STRESS FRACTURE IS POSSIBLE BUT METASTASIS NEEDS TO BE CONSIDERED WELL. Chest X-Ray 10/09/17 00:00 IMPRESSION: Moderate cardiomegaly. Otherwise unremarkable study Extremity Ultrasound 10/09/17 00:00 IMPRESSION: No discrete left upper thigh/ greater trochanter region mass is identified at ultrasound Fluoroscopy 10/13/17 00:00 IMPRESSION: Intra procedural imaging and fluoro Sacrum and Coccyx X-Ray 10/13/17 00:00 IMPRESSION: Intra procedural imaging and fluoro Assessment & Plan - Diagnosis (1) Sacral fracture, closed Is this a current diagnosis for this admission?: Yes Plan: Await pathology report from Kyphoplasty. Myeloma labs were normal. (2) Intractable back pain Is this a current diagnosis for this admission?: Yes Plan: Will continue current regimen and increase Oxycodone. Consider increase neurontin or seroquel. (3) Anemia Qualifiers: Anemia type: unspecified type Qualified Code(s): D64.9 - Anemia, unspecified Is this a current diagnosis for this admission?: Yes (4) Constipation Is this a current diagnosis for this admission?: Yes Plan: SHe is on Senna S 2 BID. I will add Miralax BID until BM then PRN
[2017-10-16] MEDS: ENOXAPARIN SODIUM INJ 40 MG/0.4 ML DISP.SYRIN SUBCUT SCH (09:56)
[2017-10-16] MEDS: FENTANYL 100 MCG/HR PATCH.TD72 TD SCH (09:58)
[2017-10-16] MEDS: DOCUSATE SODIUM 100 MG CAPSULE PO SCH ×2 (09:59→17:52)
[2017-10-16] MEDS: GABAPENTIN 400 MG CAPSULE PO SCH ×4 (09:59→22:08)
[2017-10-16] MEDS: CLONIDINE HCL 0.2 MG TABLET PO SCH ×2 (09:59→22:07)
[2017-10-16] MEDS: SENNOSIDES/DOCUSATE 8.6-50 MG 1 EACH TABLET PO SCH ×2 (10:00→17:51)
[2017-10-16] MEDS: INSULIN LISPRO 100 UNIT/ML 3 ML VIAL SUBCUT PRN (12:00)
[2017-10-16] MEDS ORDERED: QUETIAPINE FUMARATE 25 MG TABLET PO ONE (12:00)
[2017-10-16] MEDS: POLYETHYLENE GLYCOL 3350 POWDER 17 GM/1 PACKET PO PRN ×2 (12:09→17:50)
--- NOTE | 2017-10-16 12:54 | PDOC PROGRESS REPORT ---
Subjective Progress Note for:: 10/16/17 Subjective:: The patient is a 72-year-old female with a past medical history significant for diabetes. The patient was brought to the emergency room with intractable back pain and found to have a pathologic sacral fracture. She had an MRI of the pelvis which revealed an area of solid mass in the left thigh. This was suspicious for malignancy. The patient had kyphoplasty with biopsy done 10/13/17--pathology result pending. Today, she reports she still has significant flareups of back pain after minimal activity such as going to the bathroom. Denies lower extremity weakness. No fever or chills, no chest pain or palpitations. Reports constipation, no abdominal pain, nausea or vomiting. Reason For Visit: INTRACTABLE BACK PAIN Physical Exam Vital Signs: Temp Pulse Resp BP Pulse Ox 98.5 F 76 19 182/66 H 94 10/16/17 07:27 10/16/17 07:27 10/16/17 07:27 10/16/17 07:27 10/16/17 07:27 Intake & Output 10/15/17 10/16/17 10/17/17 06:59 06:59 06:59 Intake Total 2390 881 Balance 2390 881 GEN: NAD, well-developed, well-nourished CV: RRR, NL S1S2 LUNGS: CTA bilaterally ABDOMEN Soft, NT, +BS EXTERMITIES: No e/c/c NEURO: Alert, oriented 3, no acute weakness Results Laboratory Results: 10/14/17 04:15 10/14/17 04:15 Impressions: Lumbar Spine MRI 10/04/17 16:21 IMPRESSION: 1. FAIRLY EXTENSIVE ABNORMAL MARROW SIGNAL AND MARROW REPLACEMENT IN THE UPPER SACRUM MOST CONSISTENT WITH METASTATIC INVOLVEMENT. 2. MULTILEVEL CHRONIC DEGENERATIVE CHANGES IN THE LUMBAR SPINE DESCRIBED. Abdomen/Pelvis CT 10/04/17 19:35 IMPRESSION: 1. CORTICAL SCARRING IN THE KIDNEYS. NONOBSTRUCTING CALYCEAL CALCULUS IN THE RIGHT KIDNEY. 2. LOW-ATTENUATION LESION IN THE SPLEEN MOST LIKELY DUE TO A HEMANGIOMA. METASTATIC LESION WOULD BE LESS COMMON BUT NOT EXCLUDED. 3. FINDINGS IN THE LUMBAR SPINE AND SACRUM EVALUATED WITH SEPARATE MRI. 4. NO OTHER SIGNIFICANT FINDINGS IN THE ABDOMEN OR PELVIS. Chest CT 10/04/17 19:35 IMPRESSION: NORMAL CT OF THE CHEST WITH IV CONTRAST. Soft Tissue Neck CT 10/04/17 19:35 IMPRESSION: ESSENTIALLY NO THYROID TISSUE VISUALIZED, EITHER MARKEDLY ATROPHIC OR SURGICALLY ABSENT. NO OTHER SIGNIFICANT FINDING IN THE SOFT TISSUES OF THE NECK. Body Scan Nuclear Medicine 10/05/17 00:00 IMPRESSION: Increased activity in the sacrum worrisome for insufficiency fracture. Pelvis MRI 10/07/17 00:00 IMPRESSION: ABNORMAL APPEARANCE OF THE UPPER SACRUM DESCRIBED. NO CHANGE COMPARED TO THE PREVIOUS LUMBAR MRI ON 10/04/2017. STRESS FRACTURE IS POSSIBLE BUT METASTASIS NEEDS TO BE CONSIDERED WELL. Chest X-Ray 10/09/17 00:00 IMPRESSION: Moderate cardiomegaly. 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 S/p kyphoplasty with biopsy 10/13/17. Followup pathology report. (2) Intractable back pain Is this a current diagnosis for this admission?: Yes Plan: Continue on 125 mcg fentanyl patch. She has Dilaudid and oxycodone available for breakthrough pain. Her intractable pain is due to her sacral fracture and possible underlying malignancy. Will continue pain management for now. Oncology followup appreciated. (3) Urinary tract infection Is this a current diagnosis for this admission?: Yes Plan: She was initially placed on IV Levaquin. Unfortunately the initial sample was not sent for culture. She did have increased white count in spite of antibiotics. Her antibiotic therapy was changed to IV Rocephin 10/11/17--she would have completed 7 day course of this by tomorrow. She did receive 1 day of IV Levaquin and urine culture obtained after this without growth. (4) Sacral fracture, closed Is this a current diagnosis for this admission?: Yes Plan: Possibly a pathologic fracture. S/p kyphoplasty 10/13/17. (5) Mass of left thigh Is this a current diagnosis for this admission?: Yes Plan: Plan as above (6) Hypertension Qualifiers: Hypertension type: essential hypertension Qualified Code(s): I10 - Essential (primary) hypertension Is this a current diagnosis for this admission?: Yes Plan: Stable (7) Diabetes mellitus Qualifiers: Diabetes mellitus type: type 2 Is this a current diagnosis for this admission?: Yes Plan: Stable on current regimen (8) Anemia Is this a current diagnosis for this admission?: Yes Plan: Stable (9) Constipation, likely opiate induced Is this a current diagnosis for this admission?: Yes Plan: Bowel regimen as in oncologist's note
[2017-10-16] MEDS: ASPIRIN 81 MG TABLET, CHEWABLE PO SCH (17:51)
[2017-10-16] MEDS: AMLODIPINE BESYLATE 10 MG TABLET PO SCH (17:51)
[2017-10-16] MEDS: METOPROLOL TARTRATE 100 MG TABLET PO SCH (17:52)
[2017-10-16] MEDS: QUETIAPINE FUMARATE 25 MG TABLET PO SCH (22:08)
[2017-10-16] MEDS: ATORVASTATIN CALCIUM 10 MG TABLET PO SCH (22:08)
[2017-10-17] MEDS: OXYCODONE HCL IR 5 MG TABLET PO PRN ×2 (04:11→12:59)
[2017-10-17 05:13] LABS: ABSOLUTE BASOPHILS # (AUTO) 0.1 10^3/uL (0.0-0.2); ABSOLUTE EOSINOPHILS # (AUTO) 0.5 10^3/uL (0.0-0.6); ABSOLUTE LYMPHOCYTES (AUTO) 2.6 10^3/uL (0.5-4.7); ABSOLUTE NEUT (AUTO) 4.6 10^3/uL (1.7-8.2); BASOPHILS % (AUTO) 0.6 % (0-2); EOSINOPHILS % (AUTO) 5.2 % (0-6); HEMATOCRIT 33.9 % (36.0-47.0); HEMOGLOBIN 11.2 g/dL (12.0-15.5); LYMPHOCYTES % (AUTO) 29.8 % (13-45); MEAN CORPUSCULAR HEMOGLOBIN 30.1 pg (27.0-33.4); MEAN CORPUSCULAR HGB CONC 33.2 g/dL (32.0-36.0); MEAN CORPUSCULAR VOLUME 91 fl (80-97); MONOCYTES % (AUTO) 11.8 % (3-13); PLATELET COUNT 368 10^3/uL (150-450); RED BLOOD COUNT 3.73 10^6/uL (3.72-5.28); RED CELL DISTRIBUTION WIDTH 13.6 % (11.5-14.0); SEGMENTED NEUTROPHILS % (AUTO) 52.6 % (42-78); TOTAL CELLS COUNTED % (AUTO) 100 %; WHITE BLOOD COUNT 8.8 10^3/uL (4.0-10.5)
[2017-10-17] MEDS: LANSOPRAZOLE 15 MG TAB.RAP.DR PO SCH (05:33)
[2017-10-17] MEDS: LEVOTHYROXINE SODIUM 0.025 MG TABLET PO SCH (05:33)
[2017-10-17] MEDS: LEVOTHYROXINE SODIUM 0.112 MG TABLET PO SCH (05:33)
[2017-10-17 05:38] LABS: ANION GAP 9 (5-19); BLOOD UREA NITROGEN 14 mg/dL (7-20); CALCIUM 8.8 mg/dL (8.4-10.2); CARBON DIOXIDE 32 mmol/L (22-30); CHLORIDE 101 mmol/L (98-107); GLUCOSE 115 mg/dL (75-110); SODIUM 142.2 mmol/L (137-145)
--- NOTE | 2017-10-17 08:02 | PDOC PROGRESS REPORT ---
Subjective Progress Note for:: 10/17/17 Subjective:: Pt still having considerable pain, more pain than before procedure. Asked nursing to d/w pain management to see if any other pain changes can be made Reason For Visit: INTRACTABLE BACK PAIN Physical Exam Vital Signs: Temp Pulse Resp BP Pulse Ox 98.7 F 77 18 128/51 H 95 10/16/17 15:35 10/16/17 16:03 10/16/17 15:35 10/16/17 15:35 10/16/17 16:03 Intake & Output 10/16/17 10/17/17 10/18/17 06:59 06:59 06:59 Intake Total 881 970 Balance 881 970 General appearance: PRESENT: no acute distress, well-developed, well-nourished Head exam: PRESENT: atraumatic, normocephalic Eye exam: PRESENT: conjunctiva pink, EOMI, PERRLA. ABSENT: scleral icterus Ear exam: PRESENT: normal external ear exam Mouth exam: PRESENT: moist, tongue midline Neck exam: ABSENT: carotid bruit, JVD, lymphadenopathy, thyromegaly Respiratory exam: PRESENT: clear to auscultation honey. ABSENT: rales, rhonchi, wheezes Cardiovascular exam: PRESENT: RRR. ABSENT: diastolic murmur, rubs, systolic murmur Pulses: PRESENT: normal dorsalis pedis pul Vascular exam: PRESENT: normal capillary refill GI/Abdominal exam: PRESENT: normal bowel sounds, soft. ABSENT: distended, guarding, mass, organolmegaly, rebound, tenderness Rectal exam: PRESENT: deferred Extremities exam: PRESENT: full ROM. ABSENT: calf tenderness, clubbing, pedal edema Neurological exam: PRESENT: alert, awake, oriented to person, oriented to place , oriented to time, oriented to situation, CN II-XII grossly intact. ABSENT: motor sensory deficit Psychiatric exam: PRESENT: appropriate affect, normal mood. ABSENT: homicidal ideation, suicidal ideation Skin exam: PRESENT: dry, intact, warm. ABSENT: cyanosis, rash Results Laboratory Results: 10/17/17 04:01 10/17/17 04:01 10/17/17 10/17/17 04:01 04:01 WBC 8.8 RBC 3.73 Hgb 11.2 L Hct 33.9 L MCV 91 MCH 30.1 MCHC 33.2 RDW 13.6 Plt Count 368 Seg Neutrophils % 52.6 Lymphocytes % 29.8 Monocytes % 11.8 Eosinophils % 5.2 Basophils % 0.6 Absolute Neutrophils 4.6 Absolute Lymphocytes 2.6 Absolute Monocytes 1.0 Absolute Eosinophils 0.5 Absolute Basophils 0.1 Sodium 142.2 Potassium 5.0 Chloride 101 Carbon Dioxide 32 H Anion Gap 9 BUN 14 Creatinine 0.52 Est GFR ( Amer) > 60 Est GFR (Non-Af Amer) > 60 Glucose 115 H Calcium 8.8 Impressions: Lumbar Spine MRI 10/04/17 16:21 IMPRESSION: 1. FAIRLY EXTENSIVE ABNORMAL MARROW SIGNAL AND MARROW REPLACEMENT IN THE UPPER SACRUM MOST CONSISTENT WITH METASTATIC INVOLVEMENT. 2. MULTILEVEL CHRONIC DEGENERATIVE CHANGES IN THE LUMBAR SPINE DESCRIBED. Abdomen/Pelvis CT 10/04/17 19:35 IMPRESSION: 1. CORTICAL SCARRING IN THE KIDNEYS. NONOBSTRUCTING CALYCEAL CALCULUS IN THE RIGHT KIDNEY. 2. LOW-ATTENUATION LESION IN THE SPLEEN MOST LIKELY DUE TO A HEMANGIOMA. METASTATIC LESION WOULD BE LESS COMMON BUT NOT EXCLUDED. 3. FINDINGS IN THE LUMBAR SPINE AND SACRUM EVALUATED WITH SEPARATE MRI. 4. NO OTHER SIGNIFICANT FINDINGS IN THE ABDOMEN OR PELVIS. Chest CT 10/04/17 19:35 IMPRESSION: NORMAL CT OF THE CHEST WITH IV CONTRAST. Soft Tissue Neck CT 10/04/17 19:35 IMPRESSION: ESSENTIALLY NO THYROID TISSUE VISUALIZED, EITHER MARKEDLY ATROPHIC OR SURGICALLY ABSENT. NO OTHER SIGNIFICANT FINDING IN THE SOFT TISSUES OF THE NECK. Body Scan Nuclear Medicine 10/05/17 00:00 IMPRESSION: Increased activity in the sacrum worrisome for insufficiency fracture. Pelvis MRI 10/07/17 00:00 IMPRESSION: ABNORMAL APPEARANCE OF THE UPPER SACRUM DESCRIBED. NO CHANGE COMPARED TO THE PREVIOUS LUMBAR MRI ON 10/04/2017. STRESS FRACTURE IS POSSIBLE BUT METASTASIS NEEDS TO BE CONSIDERED WELL. Chest X-Ray 10/09/17 00:00 IMPRESSION: Moderate cardiomegaly. 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
[2017-10-17] MEDS: ENOXAPARIN SODIUM INJ 40 MG/0.4 ML DISP.SYRIN SUBCUT SCH (09:43)
[2017-10-17] MEDS: GABAPENTIN 400 MG CAPSULE PO SCH ×4 (09:43→21:44)
[2017-10-17] MEDS: SENNOSIDES/DOCUSATE 8.6-50 MG 1 EACH TABLET PO SCH ×2 (09:43→17:50)
[2017-10-17] MEDS: CLONIDINE HCL 0.2 MG TABLET PO SCH ×2 (09:43→21:44)
[2017-10-17] MEDS: DOCUSATE SODIUM 100 MG CAPSULE PO SCH ×2 (09:44→17:50)
[2017-10-17] MEDS: QUETIAPINE FUMARATE 25 MG TABLET PO SCH ×2 (09:44→21:44)
[2017-10-17] MEDS: ASPIRIN 81 MG TABLET, CHEWABLE PO SCH (17:50)
[2017-10-17] MEDS: METOPROLOL TARTRATE 100 MG TABLET PO SCH (17:50)
[2017-10-17] MEDS: AMLODIPINE BESYLATE 10 MG TABLET PO SCH (17:50)
--- NOTE | 2017-10-17 20:14 | PDOC PROGRESS REPORT ---
Subjective Progress Note for:: 10/17/17 Subjective:: Patient is still having significant pain , no fever or chills at the same time she appears very lethargic No shortness of breath no chest pain No fever no chills Reason For Visit: INTRACTABLE BACK PAIN Physical Exam Vital Signs: Temp Pulse Resp BP Pulse Ox 97.5 F 76 17 146/78 H 94 10/17/17 15:24 10/17/17 15:24 10/17/17 15:24 10/17/17 15:24 10/17/17 15:24 Intake & Output 10/16/17 10/17/17 10/18/17 00:59 00:59 00:59 Intake Total 9795 540 6450 Balance 5857 926 3731 General appearance: PRESENT: mild distress Head exam: PRESENT: atraumatic, normocephalic Eye exam: PRESENT: conjunctiva pink, EOMI, PERRLA. ABSENT: scleral icterus Respiratory exam: PRESENT: clear to auscultation honey. ABSENT: rales, rhonchi, wheezes Cardiovascular exam: PRESENT: RRR. ABSENT: diastolic murmur, rubs, systolic murmur Pulses: PRESENT: normal dorsalis pedis pul GI/Abdominal exam: PRESENT: normal bowel sounds, soft. ABSENT: distended, guarding, mass, organolmegaly, rebound, tenderness Extremities exam: PRESENT: calf tenderness Neurological exam: PRESENT: CN II-XII grossly intact Results Laboratory Results: 10/17/17 04:01 10/17/17 04:01 10/17/17 10/17/17 04:01 04:01 WBC 8.8 RBC 3.73 Hgb 11.2 L Hct 33.9 L MCV 91 MCH 30.1 MCHC 33.2 RDW 13.6 Plt Count 368 Seg Neutrophils % 52.6 Lymphocytes % 29.8 Monocytes % 11.8 Eosinophils % 5.2 Basophils % 0.6 Absolute Neutrophils 4.6 Absolute Lymphocytes 2.6 Absolute Monocytes 1.0 Absolute Eosinophils 0.5 Absolute Basophils 0.1 Sodium 142.2 Potassium 5.0 Chloride 101 Carbon Dioxide 32 H Anion Gap 9 BUN 14 Creatinine 0.52 Est GFR ( Amer) > 60 Est GFR (Non-Af Amer) > 60 Glucose 115 H Calcium 8.8 Impressions: Lumbar Spine MRI 10/04/17 16:21 IMPRESSION: 1. FAIRLY EXTENSIVE ABNORMAL MARROW SIGNAL AND MARROW REPLACEMENT IN THE UPPER SACRUM MOST CONSISTENT WITH METASTATIC INVOLVEMENT. 2. MULTILEVEL CHRONIC DEGENERATIVE CHANGES IN THE LUMBAR SPINE DESCRIBED. Abdomen/Pelvis CT 10/04/17 19:35 IMPRESSION: 1. CORTICAL SCARRING IN THE KIDNEYS. NONOBSTRUCTING CALYCEAL CALCULUS IN THE RIGHT KIDNEY. 2. LOW-ATTENUATION LESION IN THE SPLEEN MOST LIKELY DUE TO A HEMANGIOMA. METASTATIC LESION WOULD BE LESS COMMON BUT NOT EXCLUDED. 3. FINDINGS IN THE LUMBAR SPINE AND SACRUM EVALUATED WITH SEPARATE MRI. 4. NO OTHER SIGNIFICANT FINDINGS IN THE ABDOMEN OR PELVIS. Chest CT 10/04/17 19:35 IMPRESSION: NORMAL CT OF THE CHEST WITH IV CONTRAST. Soft Tissue Neck CT 10/04/17 19:35 IMPRESSION: ESSENTIALLY NO THYROID TISSUE VISUALIZED, EITHER MARKEDLY ATROPHIC OR SURGICALLY ABSENT. NO OTHER SIGNIFICANT FINDING IN THE SOFT TISSUES OF THE NECK. Body Scan Nuclear Medicine 10/05/17 00:00 IMPRESSION: Increased activity in the sacrum worrisome for insufficiency fracture. Pelvis MRI 10/07/17 00:00 IMPRESSION: ABNORMAL APPEARANCE OF THE UPPER SACRUM DESCRIBED. NO CHANGE COMPARED TO THE PREVIOUS LUMBAR MRI ON 10/04/2017. STRESS FRACTURE IS POSSIBLE BUT METASTASIS NEEDS TO BE CONSIDERED WELL. Chest X-Ray 10/09/17 00:00 IMPRESSION: Moderate cardiomegaly. Otherwise unremarkable study Extremity Ultrasound 10/09/17 00:00 IMPRESSION: No discrete left upper thigh/ greater trochanter region mass is identified at ultrasound Fluoroscopy 10/13/17 00:00 IMPRESSION: Intra procedural imaging and fluoro Sacrum and Coccyx X-Ray 10/13/17 00:00 IMPRESSION: Intra procedural imaging and fluoro Assessment & Plan - Diagnosis (1) Anemia Qualifiers: Anemia type: unspecified type Qualified Code(s): D64.9 - Anemia, unspecified Is this a current diagnosis for this admission?: Yes (2) Constipation Is this a current diagnosis for this admission?: Yes (3) Intractable back pain Is this a current diagnosis for this admission?: Yes (4) 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 for disposition Time Spent with patient: 25-34 minutes
[2017-10-17] MEDS: ATORVASTATIN CALCIUM 10 MG TABLET PO SCH (21:44)
[2017-10-18] MEDS: OXYCODONE HCL IR 5 MG TABLET PO PRN ×4 (00:16→21:53)
[2017-10-18] MEDS: LANSOPRAZOLE 15 MG TAB.RAP.DR PO SCH (05:02)
[2017-10-18] MEDS: LEVOTHYROXINE SODIUM 0.025 MG TABLET PO SCH (05:02)
[2017-10-18] MEDS: LEVOTHYROXINE SODIUM 0.112 MG TABLET PO SCH (05:02)
[2017-10-18] MEDS: POLYETHYLENE GLYCOL 3350 POWDER 17 GM/1 PACKET PO PRN (05:48)
--- NOTE | 2017-10-18 08:25 | PDOC PROGRESS REPORT ---
Subjective Progress Note for:: 10/18/17 Subjective:: Still w/ significant pain with any pressure on sacral area, can't get comfortable when sitting Reason For Visit: INTRACTABLE BACK PAIN Physical Exam Vital Signs: Temp Pulse Resp BP Pulse Ox 97.5 F 76 17 146/78 H 94 10/17/17 15:24 10/17/17 15:24 10/17/17 15:24 10/17/17 15:24 10/17/17 15:24 Intake & Output 10/17/17 10/18/17 10/19/17 06:59 06:59 06:59 Intake Total 970 978 Balance 970 978 General appearance: PRESENT: no acute distress, well-developed, well-nourished Head exam: PRESENT: atraumatic, normocephalic Eye exam: PRESENT: conjunctiva pink, EOMI, PERRLA. ABSENT: scleral icterus Ear exam: PRESENT: normal external ear exam Mouth exam: PRESENT: moist, tongue midline Neck exam: ABSENT: carotid bruit, JVD, lymphadenopathy, thyromegaly Respiratory exam: PRESENT: clear to auscultation honey. ABSENT: rales, rhonchi, wheezes Cardiovascular exam: PRESENT: RRR. ABSENT: diastolic murmur, rubs, systolic murmur Pulses: PRESENT: normal dorsalis pedis pul Vascular exam: PRESENT: normal capillary refill GI/Abdominal exam: PRESENT: normal bowel sounds, soft. ABSENT: distended, guarding, mass, organolmegaly, rebound, tenderness Rectal exam: PRESENT: deferred Extremities exam: PRESENT: full ROM. ABSENT: calf tenderness, clubbing, pedal edema Neurological exam: PRESENT: alert, awake, oriented to person, oriented to place , oriented to time, oriented to situation, CN II-XII grossly intact. ABSENT: motor sensory deficit Psychiatric exam: PRESENT: appropriate affect, normal mood. ABSENT: homicidal ideation, suicidal ideation Skin exam: PRESENT: dry, intact, warm. ABSENT: cyanosis, rash Results Laboratory Results: 10/17/17 04:01 10/17/17 04:01 Impressions: Lumbar Spine MRI 10/04/17 16:21 IMPRESSION: 1. FAIRLY EXTENSIVE ABNORMAL MARROW SIGNAL AND MARROW REPLACEMENT IN THE UPPER SACRUM MOST CONSISTENT WITH METASTATIC INVOLVEMENT. 2. MULTILEVEL CHRONIC DEGENERATIVE CHANGES IN THE LUMBAR SPINE DESCRIBED. Abdomen/Pelvis CT 10/04/17 19:35 IMPRESSION: 1. CORTICAL SCARRING IN THE KIDNEYS. NONOBSTRUCTING CALYCEAL CALCULUS IN THE RIGHT KIDNEY. 2. LOW-ATTENUATION LESION IN THE SPLEEN MOST LIKELY DUE TO A HEMANGIOMA. METASTATIC LESION WOULD BE LESS COMMON BUT NOT EXCLUDED. 3. FINDINGS IN THE LUMBAR SPINE AND SACRUM EVALUATED WITH SEPARATE MRI. 4. NO OTHER SIGNIFICANT FINDINGS IN THE ABDOMEN OR PELVIS. Chest CT 10/04/17 19:35 IMPRESSION: NORMAL CT OF THE CHEST WITH IV CONTRAST. Soft Tissue Neck CT 10/04/17 19:35 IMPRESSION: ESSENTIALLY NO THYROID TISSUE VISUALIZED, EITHER MARKEDLY ATROPHIC OR SURGICALLY ABSENT. NO OTHER SIGNIFICANT FINDING IN THE SOFT TISSUES OF THE NECK. Body Scan Nuclear Medicine 10/05/17 00:00 IMPRESSION: Increased activity in the sacrum worrisome for insufficiency fracture. Pelvis MRI 10/07/17 00:00 IMPRESSION: ABNORMAL APPEARANCE OF THE UPPER SACRUM DESCRIBED. NO CHANGE COMPARED TO THE PREVIOUS LUMBAR MRI ON 10/04/2017. STRESS FRACTURE IS POSSIBLE BUT METASTASIS NEEDS TO BE CONSIDERED WELL. Chest X-Ray 10/09/17 00:00 IMPRESSION: Moderate cardiomegaly. 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 SPecimen sent to [facility] for 2nd opinion and we have a BMBx specimen sent to [facility] in [place] that is pending also. (2) Pain, cancer Is this a current diagnosis for this admission?: Yes Plan: Asked nursing to ask [place] pain management to help with changes in pain control.
[2017-10-18] MEDS ORDERED: GABAPENTIN 300 MG CAPSULE PO ONE (08:30)
[2017-10-18] MEDS ORDERED: ONDANSETRON HCL INJ/PF 4 MG/2 ML SDV IV PRN (09:00)
[2017-10-18] MEDS ORDERED: BISACODYL 10 MG SUPP.RECT PR PRN (11:25)
--- NOTE | 2017-10-18 11:30 | PDOC PROGRESS REPORT ---
Subjective Progress Note for:: 10/18/17 Subjective:: Patient appears more comfortable today she states that when she does not move the pain is tolerable Discussed with the patient options for discharge Discussed short-term rehab, and she agrees We will have physical therapy evaluate her today Patient is complaining of constipation Lactulose Dulcolax Colace ordered Reason For Visit: INTRACTABLE BACK PAIN Physical Exam Vital Signs: Temp Pulse Resp BP Pulse Ox 97.5 F 76 17 146/78 H 94 10/17/17 15:24 10/17/17 15:24 10/17/17 15:24 10/17/17 15:24 10/17/17 15:24 Intake & Output 10/17/17 10/18/17 10/19/17 00:59 00:59 00:59 Intake Total 500 1220 340 Balance 500 1220 340 General appearance: PRESENT: mild distress Head exam: PRESENT: atraumatic, normocephalic Eye exam: PRESENT: conjunctiva pink, EOMI, PERRLA. ABSENT: scleral icterus Respiratory exam: PRESENT: clear to auscultation honey. ABSENT: rales, rhonchi, wheezes Cardiovascular exam: PRESENT: RRR. ABSENT: diastolic murmur, rubs, systolic murmur Pulses: PRESENT: normal dorsalis pedis pul GI/Abdominal exam: PRESENT: normal bowel sounds, soft. ABSENT: distended, guarding, mass, organolmegaly, rebound, tenderness Extremities exam: PRESENT: calf tenderness Neurological exam: PRESENT: CN II-XII grossly intact Results Laboratory Results: 10/17/17 04:01 10/17/17 04:01 Impressions: Lumbar Spine MRI 10/04/17 16:21 IMPRESSION: 1. FAIRLY EXTENSIVE ABNORMAL MARROW SIGNAL AND MARROW REPLACEMENT IN THE UPPER SACRUM MOST CONSISTENT WITH METASTATIC INVOLVEMENT. 2. MULTILEVEL CHRONIC DEGENERATIVE CHANGES IN THE LUMBAR SPINE DESCRIBED. Abdomen/Pelvis CT 10/04/17 19:35 IMPRESSION: 1. CORTICAL SCARRING IN THE KIDNEYS. NONOBSTRUCTING CALYCEAL CALCULUS IN THE RIGHT KIDNEY. 2. LOW-ATTENUATION LESION IN THE SPLEEN MOST LIKELY DUE TO A HEMANGIOMA. METASTATIC LESION WOULD BE LESS COMMON BUT NOT EXCLUDED. 3. FINDINGS IN THE LUMBAR SPINE AND SACRUM EVALUATED WITH SEPARATE MRI. 4. NO OTHER SIGNIFICANT FINDINGS IN THE ABDOMEN OR PELVIS. Chest CT 10/04/17 19:35 IMPRESSION: NORMAL CT OF THE CHEST WITH IV CONTRAST. Soft Tissue Neck CT 10/04/17 19:35 IMPRESSION: ESSENTIALLY NO THYROID TISSUE VISUALIZED, EITHER MARKEDLY ATROPHIC OR SURGICALLY ABSENT. NO OTHER SIGNIFICANT FINDING IN THE SOFT TISSUES OF THE NECK. Body Scan Nuclear Medicine 10/05/17 00:00 IMPRESSION: Increased activity in the sacrum worrisome for insufficiency fracture. Pelvis MRI 10/07/17 00:00 IMPRESSION: ABNORMAL APPEARANCE OF THE UPPER SACRUM DESCRIBED. NO CHANGE COMPARED TO THE PREVIOUS LUMBAR MRI ON 10/04/2017. STRESS FRACTURE IS POSSIBLE BUT METASTASIS NEEDS TO BE CONSIDERED WELL. Chest X-Ray 10/09/17 00:00 IMPRESSION: Moderate cardiomegaly. Otherwise unremarkable study Extremity Ultrasound 10/09/17 00:00 IMPRESSION: No discrete left upper thigh/ greater trochanter region mass is identified at ultrasound Fluoroscopy 10/13/17 00:00 IMPRESSION: Intra procedural imaging and fluoro Sacrum and Coccyx X-Ray 10/13/17 00:00 IMPRESSION: Intra procedural imaging and fluoro Assessment & Plan - Diagnosis (1) Anemia Qualifiers: Anemia type: unspecified type Qualified Code(s): D64.9 - Anemia, unspecified Is this a current diagnosis for this admission?: Yes (2) Constipation Is this a current diagnosis for this admission?: Yes (3) Intractable back pain Is this a current diagnosis for this admission?: Yes (4) 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
[2017-10-18] MEDS: ENOXAPARIN SODIUM INJ 40 MG/0.4 ML DISP.SYRIN SUBCUT SCH (11:38)
[2017-10-18] MEDS: CLONIDINE HCL 0.2 MG TABLET PO SCH ×2 (11:42→21:52)
[2017-10-18] MEDS: DOCUSATE SODIUM 100 MG CAPSULE PO SCH ×2 (11:44→18:06)
[2017-10-18] MEDS: QUETIAPINE FUMARATE 25 MG TABLET PO SCH ×2 (11:45→21:53)
[2017-10-18] MEDS ORDERED: LACTULOSE SYRUP 20 GM/30 ML UDCUP PO ONE (12:00)
[2017-10-18] MEDS: GABAPENTIN 300 MG CAPSULE PO SCH ×2 (16:29→21:53)
[2017-10-18] MEDS: AMLODIPINE BESYLATE 10 MG TABLET PO SCH (18:05)
[2017-10-18] MEDS: ASPIRIN 81 MG TABLET, CHEWABLE PO SCH (18:05)
[2017-10-18] MEDS: BISACODYL 5 MG TABEC PO SCH (18:05)
[2017-10-18] MEDS: METOPROLOL TARTRATE 100 MG TABLET PO SCH (18:06)
[2017-10-18] MEDS: ATORVASTATIN CALCIUM 10 MG TABLET PO SCH (21:52)
[2017-10-18] MEDS: LACTULOSE SYRUP 20 GM/30 ML UDCUP PO SCH (21:54)
[2017-10-19] MEDS: LEVOTHYROXINE SODIUM 0.112 MG TABLET PO SCH (05:44)
[2017-10-19] MEDS: OXYCODONE HCL IR 5 MG TABLET PO PRN ×4 (05:44→21:36)
[2017-10-19] MEDS: GABAPENTIN 300 MG CAPSULE PO SCH ×3 (05:44→21:37)
[2017-10-19] MEDS: LEVOTHYROXINE SODIUM 0.025 MG TABLET PO SCH (05:44)
[2017-10-19] MEDS: LANSOPRAZOLE 15 MG TAB.RAP.DR PO SCH (05:44)
--- NOTE | 2017-10-19 08:26 | PDOC PROGRESS REPORT ---
Subjective Progress Note for:: 10/19/17 Subjective:: Patient did a little bit better yesterday, was able to get up with physical therapy, she is planned for rehab placement now, awaiting that offer from [facility]. Pain control seems appropriate now. Reason For Visit: INTRACTABLE BACK PAIN Physical Exam Vital Signs: Temp Pulse Resp BP Pulse Ox 97.9 F 55 L 18 116/54 L 94 10/19/17 00:00 10/19/17 00:00 10/19/17 00:00 10/19/17 00:00 10/19/17 00:00 Intake & Output 10/18/17 10/19/17 10/20/17 06:59 06:59 06:59 Intake Total 978 780 Balance 978 780 Results Laboratory Results: 10/17/17 04:01 10/17/17 04:01 Impressions: Lumbar Spine MRI 10/04/17 16:21 IMPRESSION: 1. FAIRLY EXTENSIVE ABNORMAL MARROW SIGNAL AND MARROW REPLACEMENT IN THE UPPER SACRUM MOST CONSISTENT WITH METASTATIC INVOLVEMENT. 2. MULTILEVEL CHRONIC DEGENERATIVE CHANGES IN THE LUMBAR SPINE DESCRIBED. Abdomen/Pelvis CT 10/04/17 19:35 IMPRESSION: 1. CORTICAL SCARRING IN THE KIDNEYS. NONOBSTRUCTING CALYCEAL CALCULUS IN THE RIGHT KIDNEY. 2. LOW-ATTENUATION LESION IN THE SPLEEN MOST LIKELY DUE TO A HEMANGIOMA. METASTATIC LESION WOULD BE LESS COMMON BUT NOT EXCLUDED. 3. FINDINGS IN THE LUMBAR SPINE AND SACRUM EVALUATED WITH SEPARATE MRI. 4. NO OTHER SIGNIFICANT FINDINGS IN THE ABDOMEN OR PELVIS. Chest CT 10/04/17 19:35 IMPRESSION: NORMAL CT OF THE CHEST WITH IV CONTRAST. Soft Tissue Neck CT 10/04/17 19:35 IMPRESSION: ESSENTIALLY NO THYROID TISSUE VISUALIZED, EITHER MARKEDLY ATROPHIC OR SURGICALLY ABSENT. NO OTHER SIGNIFICANT FINDING IN THE SOFT TISSUES OF THE NECK. Body Scan Nuclear Medicine 10/05/17 00:00 IMPRESSION: Increased activity in the sacrum worrisome for insufficiency fracture. Pelvis MRI 10/07/17 00:00 IMPRESSION: ABNORMAL APPEARANCE OF THE UPPER SACRUM DESCRIBED. NO CHANGE COMPARED TO THE PREVIOUS LUMBAR MRI ON 10/04/2017. STRESS FRACTURE IS POSSIBLE BUT METASTASIS NEEDS TO BE CONSIDERED WELL. Chest X-Ray 10/09/17 00:00 IMPRESSION: Moderate cardiomegaly. 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 - Time Time Spent with patient: 35 or more minutes - Inpatient Certification Based on my medical assessment, after consideration of the patient's comorbidities, presenting symptoms, or acuity I expect that the services needed warrant INPATIENT care.: Yes I certify that my determination is in accordance with my understanding of Medicare's requirements for reasonable and necessary INPATIENT services [42 CFR 412.3e].: Yes Medical Necessity: Risk of Complication if Not Cared For in Hospital
[2017-10-19] MEDS: ENOXAPARIN SODIUM INJ 40 MG/0.4 ML DISP.SYRIN SUBCUT SCH (10:46)
[2017-10-19] MEDS: CLONIDINE HCL 0.2 MG TABLET PO SCH ×2 (10:46→21:37)
[2017-10-19] MEDS: HYDROMORPHONE HCL INJ/PF 2 MG/ML AMPULE IV PRN (10:46)
[2017-10-19] MEDS: LACTULOSE SYRUP 20 GM/30 ML UDCUP PO SCH ×2 (10:46→21:38)
[2017-10-19] MEDS: DOCUSATE SODIUM 100 MG CAPSULE PO SCH ×2 (10:46→20:18)
[2017-10-19] MEDS: BISACODYL 5 MG TABEC PO SCH ×2 (10:47→20:18)
[2017-10-19] MEDS: FENTANYL 100 MCG/HR PATCH.TD72 TD SCH (10:47)
[2017-10-19] MEDS: QUETIAPINE FUMARATE 25 MG TABLET PO SCH ×2 (10:47→21:37)
--- NOTE | 2017-10-19 16:24 | PDOC PROGRESS REPORT ---
Subjective Progress Note for:: 10/19/17 Subjective:: appears more comfortable today alert awake states pain is 2/10 Reason For Visit: INTRACTABLE BACK PAIN Physical Exam Vital Signs: Temp Pulse Resp BP Pulse Ox 98.5 F 78 14 139/62 H 93 10/19/17 16:00 10/19/17 16:00 10/19/17 16:00 10/19/17 16:00 10/19/17 16:00 Intake & Output 10/18/17 10/19/17 10/20/17 00:59 00:59 00:59 Intake Total 1220 780 340 Balance 1220 780 340 General appearance: PRESENT: mild distress Head exam: PRESENT: atraumatic, normocephalic Eye exam: PRESENT: conjunctiva pink, EOMI, PERRLA. ABSENT: scleral icterus Respiratory exam: PRESENT: clear to auscultation honey. ABSENT: rales, rhonchi, wheezes Cardiovascular exam: PRESENT: RRR. ABSENT: diastolic murmur, rubs, systolic murmur Pulses: PRESENT: normal dorsalis pedis pul GI/Abdominal exam: PRESENT: normal bowel sounds, soft. ABSENT: distended, guarding, mass, organolmegaly, rebound, tenderness Extremities exam: PRESENT: calf tenderness Neurological exam: PRESENT: CN II-XII grossly intact Results Laboratory Results: 10/17/17 04:01 10/17/17 04:01 Impressions: Lumbar Spine MRI 10/04/17 16:21 IMPRESSION: 1. FAIRLY EXTENSIVE ABNORMAL MARROW SIGNAL AND MARROW REPLACEMENT IN THE UPPER SACRUM MOST CONSISTENT WITH METASTATIC INVOLVEMENT. 2. MULTILEVEL CHRONIC DEGENERATIVE CHANGES IN THE LUMBAR SPINE DESCRIBED. Abdomen/Pelvis CT 10/04/17 19:35 IMPRESSION: 1. CORTICAL SCARRING IN THE KIDNEYS. NONOBSTRUCTING CALYCEAL CALCULUS IN THE RIGHT KIDNEY. 2. LOW-ATTENUATION LESION IN THE SPLEEN MOST LIKELY DUE TO A HEMANGIOMA. METASTATIC LESION WOULD BE LESS COMMON BUT NOT EXCLUDED. 3. FINDINGS IN THE LUMBAR SPINE AND SACRUM EVALUATED WITH SEPARATE MRI. 4. NO OTHER SIGNIFICANT FINDINGS IN THE ABDOMEN OR PELVIS. Chest CT 10/04/17 19:35 IMPRESSION: NORMAL CT OF THE CHEST WITH IV CONTRAST. Soft Tissue Neck CT 10/04/17 19:35 IMPRESSION: ESSENTIALLY NO THYROID TISSUE VISUALIZED, EITHER MARKEDLY ATROPHIC OR SURGICALLY ABSENT. NO OTHER SIGNIFICANT FINDING IN THE SOFT TISSUES OF THE NECK. Body Scan Nuclear Medicine 10/05/17 00:00 IMPRESSION: Increased activity in the sacrum worrisome for insufficiency fracture. Pelvis MRI 10/07/17 00:00 IMPRESSION: ABNORMAL APPEARANCE OF THE UPPER SACRUM DESCRIBED. NO CHANGE COMPARED TO THE PREVIOUS LUMBAR MRI ON 10/04/2017. STRESS FRACTURE IS POSSIBLE BUT METASTASIS NEEDS TO BE CONSIDERED WELL. Chest X-Ray 10/09/17 00:00 IMPRESSION: Moderate cardiomegaly. Otherwise unremarkable study Extremity Ultrasound 10/09/17 00:00 IMPRESSION: No discrete left upper thigh/ greater trochanter region mass is identified at ultrasound Fluoroscopy 10/13/17 00:00 IMPRESSION: Intra procedural imaging and fluoro Sacrum and Coccyx X-Ray 10/13/17 00:00 IMPRESSION: Intra procedural imaging and fluoro Assessment & Plan - Diagnosis (1) Anemia Qualifiers: Anemia type: unspecified type Qualified Code(s): D64.9 - Anemia, unspecified Is this a current diagnosis for this admission?: Yes (2) Constipation Is this a current diagnosis for this admission?: Yes (3) Intractable back pain Is this a current diagnosis for this admission?: Yes (4) 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
[2017-10-19] MEDS: METOPROLOL TARTRATE 100 MG TABLET PO SCH (20:16)
[2017-10-19] MEDS: ASPIRIN 81 MG TABLET, CHEWABLE PO SCH (20:16)
[2017-10-19] MEDS: AMLODIPINE BESYLATE 10 MG TABLET PO SCH (20:16)
[2017-10-19] MEDS: ATORVASTATIN CALCIUM 10 MG TABLET PO SCH (21:37)
[2017-10-20 04:44] LABS: ABSOLUTE BASOPHILS # (AUTO) 0.1 10^3/uL (0.0-0.2); ABSOLUTE EOSINOPHILS # (AUTO) 0.5 10^3/uL (0.0-0.6); ABSOLUTE LYMPHOCYTES (AUTO) 2.5 10^3/uL (0.5-4.7); ABSOLUTE MONOCYTES (AUTO) 0.9 10^3/uL (0.1-1.4); BASOPHILS % (AUTO) 0.7 % (0-2); EOSINOPHILS % (AUTO) 5.8 % (0-6); HEMATOCRIT 33.7 % (36.0-47.0); HEMOGLOBIN 11.3 g/dL (12.0-15.5); LYMPHOCYTES % (AUTO) 28.1 % (13-45); MEAN CORPUSCULAR HEMOGLOBIN 30.1 pg (27.0-33.4); MEAN CORPUSCULAR HGB CONC 33.6 g/dL (32.0-36.0); MEAN CORPUSCULAR VOLUME 90 fl (80-97); MONOCYTES % (AUTO) 10.4 % (3-13); PLATELET COUNT 413 10^3/uL (150-450); RED BLOOD COUNT 3.76 10^6/uL (3.72-5.28); RED CELL DISTRIBUTION WIDTH 13.4 % (11.5-14.0); TOTAL CELLS COUNTED % (AUTO) 100 %; WHITE BLOOD COUNT 9.1 10^3/uL (4.0-10.5)
[2017-10-20 04:52] LABS: ANION GAP 12 (5-19); BLOOD UREA NITROGEN 15 mg/dL (7-20); CARBON DIOXIDE 30 mmol/L (22-30); CHLORIDE 99 mmol/L (98-107); GLUCOSE 127 mg/dL (75-110); POTASSIUM 4.6 mmol/L (3.6-5.0); SODIUM 140.9 mmol/L (137-145)
[2017-10-20] MEDS: GABAPENTIN 300 MG CAPSULE PO SCH ×3 (05:01→21:45)
[2017-10-20] MEDS: LEVOTHYROXINE SODIUM 0.025 MG TABLET PO SCH (05:01)
[2017-10-20] MEDS: LEVOTHYROXINE SODIUM 0.112 MG TABLET PO SCH (05:01)
[2017-10-20] MEDS: LANSOPRAZOLE 15 MG TAB.RAP.DR PO SCH (05:02)
[2017-10-20] MEDS: OXYCODONE HCL IR 5 MG TABLET PO PRN ×3 (05:02→18:05)
--- NOTE | 2017-10-20 08:30 | PDOC PROGRESS REPORT ---
Subjective Progress Note for:: 10/20/17 Subjective:: No acute events overnight, pain seems better. Reason For Visit: INTRACTABLE BACK PAIN Physical Exam Vital Signs: Temp Pulse Resp BP Pulse Ox 98.7 F 70 16 117/72 94 10/20/17 08:14 10/20/17 08:14 10/20/17 08:14 10/20/17 08:14 10/20/17 08:14 Intake & Output 10/19/17 10/20/17 10/21/17 06:59 06:59 06:59 Intake Total 780 944 Balance 780 944 General appearance: PRESENT: no acute distress, well-developed, well-nourished Head exam: PRESENT: atraumatic, normocephalic Eye exam: PRESENT: conjunctiva pink, EOMI, PERRLA. ABSENT: scleral icterus Ear exam: PRESENT: normal external ear exam Mouth exam: PRESENT: moist, tongue midline Neck exam: ABSENT: carotid bruit, JVD, lymphadenopathy, thyromegaly Respiratory exam: PRESENT: clear to auscultation honey. ABSENT: rales, rhonchi, wheezes Cardiovascular exam: PRESENT: RRR. ABSENT: diastolic murmur, rubs, systolic murmur Pulses: PRESENT: normal dorsalis pedis pul Vascular exam: PRESENT: normal capillary refill GI/Abdominal exam: PRESENT: normal bowel sounds, soft. ABSENT: distended, guarding, mass, organolmegaly, rebound, tenderness Rectal exam: PRESENT: deferred Extremities exam: PRESENT: full ROM. ABSENT: calf tenderness, clubbing, pedal edema Neurological exam: PRESENT: alert, awake, oriented to person, oriented to place , oriented to time, oriented to situation, CN II-XII grossly intact. ABSENT: motor sensory deficit Psychiatric exam: PRESENT: appropriate affect, normal mood. ABSENT: homicidal ideation, suicidal ideation Skin exam: PRESENT: dry, intact, warm. ABSENT: cyanosis, rash Results Laboratory Results: 10/20/17 04:10 10/20/17 04:10 10/20/17 10/20/17 04:10 04:10 WBC 9.1 RBC 3.76 Hgb 11.3 L Hct 33.7 L MCV 90 MCH 30.1 MCHC 33.6 RDW 13.4 Plt Count 413 Seg Neutrophils % 55.0 Lymphocytes % 28.1 Monocytes % 10.4 Eosinophils % 5.8 Basophils % 0.7 Absolute Neutrophils 5.0 Absolute Lymphocytes 2.5 Absolute Monocytes 0.9 Absolute Eosinophils 0.5 Absolute Basophils 0.1 Sodium 140.9 Potassium 4.6 Chloride 99 Carbon Dioxide 30 Anion Gap 12 BUN 15 Creatinine 0.57 Est GFR ( Amer) > 60 Est GFR (Non-Af Amer) > 60 Glucose 127 H Calcium 9.0 Impressions: Lumbar Spine MRI 10/04/17 16:21 IMPRESSION: 1. FAIRLY EXTENSIVE ABNORMAL MARROW SIGNAL AND MARROW REPLACEMENT IN THE UPPER SACRUM MOST CONSISTENT WITH METASTATIC INVOLVEMENT. 2. MULTILEVEL CHRONIC DEGENERATIVE CHANGES IN THE LUMBAR SPINE DESCRIBED. Abdomen/Pelvis CT 10/04/17 19:35 IMPRESSION: 1. CORTICAL SCARRING IN THE KIDNEYS. NONOBSTRUCTING CALYCEAL CALCULUS IN THE RIGHT KIDNEY. 2. LOW-ATTENUATION LESION IN THE SPLEEN MOST LIKELY DUE TO A HEMANGIOMA. METASTATIC LESION WOULD BE LESS COMMON BUT NOT EXCLUDED. 3. FINDINGS IN THE LUMBAR SPINE AND SACRUM EVALUATED WITH SEPARATE MRI. 4. NO OTHER SIGNIFICANT FINDINGS IN THE ABDOMEN OR PELVIS. Chest CT 10/04/17 19:35 IMPRESSION: NORMAL CT OF THE CHEST WITH IV CONTRAST. Soft Tissue Neck CT 10/04/17 19:35 IMPRESSION: ESSENTIALLY NO THYROID TISSUE VISUALIZED, EITHER MARKEDLY ATROPHIC OR SURGICALLY ABSENT. NO OTHER SIGNIFICANT FINDING IN THE SOFT TISSUES OF THE NECK. Body Scan Nuclear Medicine 10/05/17 00:00 IMPRESSION: Increased activity in the sacrum worrisome for insufficiency fracture. Pelvis MRI 10/07/17 00:00 IMPRESSION: ABNORMAL APPEARANCE OF THE UPPER SACRUM DESCRIBED. NO CHANGE COMPARED TO THE PREVIOUS LUMBAR MRI ON 10/04/2017. STRESS FRACTURE IS POSSIBLE BUT METASTASIS NEEDS TO BE CONSIDERED WELL. Chest X-Ray 10/09/17 00:00 IMPRESSION: Moderate cardiomegaly. 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 (2) Pain, cancer Is this a current diagnosis for this admission?: Yes Plan: Continue fentanyl patch 100 mcg, continue oxycodone as needed. - Time Time Spent with patient: 15-24 minutes - Inpatient Certification Based on my medical assessment, after consideration of the patient's comorbidities, presenting symptoms, or acuity I expect that the services needed warrant INPATIENT care.: Yes I certify that my determination is in accordance with my understanding of Medicare's requirements for reasonable and necessary INPATIENT services [42 CFR 412.3e].: Yes Medical Necessity: Need for Pain Control, Risk of Complication if Not Cared For in Hospital
[2017-10-20] MEDS: ENOXAPARIN SODIUM INJ 40 MG/0.4 ML DISP.SYRIN SUBCUT SCH (09:56)
[2017-10-20] MEDS: LACTULOSE SYRUP 20 GM/30 ML UDCUP PO SCH ×2 (09:57→21:46)
[2017-10-20] MEDS: CLONIDINE HCL 0.2 MG TABLET PO SCH ×2 (09:57→21:45)
[2017-10-20] MEDS: DOCUSATE SODIUM 100 MG CAPSULE PO SCH ×2 (09:57→18:06)
[2017-10-20] MEDS: QUETIAPINE FUMARATE 25 MG TABLET PO SCH ×2 (09:57→21:45)
[2017-10-20] MEDS: BISACODYL 5 MG TABEC PO SCH ×2 (09:58→18:06)
[2017-10-20] MEDS: INSULIN LISPRO 100 UNIT/ML 3 ML VIAL SUBCUT PRN (17:59)
[2017-10-20] MEDS: METOPROLOL TARTRATE 100 MG TABLET PO SCH (18:03)
[2017-10-20] MEDS: AMLODIPINE BESYLATE 10 MG TABLET PO SCH (18:03)
[2017-10-20] MEDS: ASPIRIN 81 MG TABLET, CHEWABLE PO SCH (18:03)
--- NOTE | 2017-10-20 18:43 | PDOC PROGRESS REPORT ---
Subjective Progress Note for:: 10/20/17 Subjective:: pain improved ambulated with PT Reason For Visit: INTRACTABLE BACK PAIN Physical Exam Vital Signs: Temp Pulse Resp BP Pulse Ox 97.6 F 68 17 125/50 L 99 10/20/17 12:00 10/20/17 12:00 10/20/17 12:00 10/20/17 12:00 10/20/17 12:00 Intake & Output 10/19/17 10/20/17 10/21/17 00:59 00:59 00:59 Intake Total 184 452 1948 Balance 214 091 5396 General appearance: PRESENT: mild distress Head exam: PRESENT: atraumatic, normocephalic Eye exam: PRESENT: conjunctiva pink, EOMI, PERRLA. ABSENT: scleral icterus Respiratory exam: PRESENT: clear to auscultation honey. ABSENT: rales, rhonchi, wheezes Cardiovascular exam: PRESENT: RRR. ABSENT: diastolic murmur, rubs, systolic murmur Pulses: PRESENT: normal dorsalis pedis pul GI/Abdominal exam: PRESENT: normal bowel sounds, soft. ABSENT: distended, guarding, mass, organolmegaly, rebound, tenderness Extremities exam: PRESENT: calf tenderness Neurological exam: PRESENT: CN II-XII grossly intact Results Laboratory Results: 10/20/17 04:10 10/20/17 04:10 10/20/17 10/20/17 04:10 04:10 WBC 9.1 RBC 3.76 Hgb 11.3 L Hct 33.7 L MCV 90 MCH 30.1 MCHC 33.6 RDW 13.4 Plt Count 413 Seg Neutrophils % 55.0 Lymphocytes % 28.1 Monocytes % 10.4 Eosinophils % 5.8 Basophils % 0.7 Absolute Neutrophils 5.0 Absolute Lymphocytes 2.5 Absolute Monocytes 0.9 Absolute Eosinophils 0.5 Absolute Basophils 0.1 Sodium 140.9 Potassium 4.6 Chloride 99 Carbon Dioxide 30 Anion Gap 12 BUN 15 Creatinine 0.57 Est GFR ( Amer) > 60 Est GFR (Non-Af Amer) > 60 Glucose 127 H Calcium 9.0 Impressions: Lumbar Spine MRI 10/04/17 16:21 IMPRESSION: 1. FAIRLY EXTENSIVE ABNORMAL MARROW SIGNAL AND MARROW REPLACEMENT IN THE UPPER SACRUM MOST CONSISTENT WITH METASTATIC INVOLVEMENT. 2. MULTILEVEL CHRONIC DEGENERATIVE CHANGES IN THE LUMBAR SPINE DESCRIBED. Abdomen/Pelvis CT 10/04/17 19:35 IMPRESSION: 1. CORTICAL SCARRING IN THE KIDNEYS. NONOBSTRUCTING CALYCEAL CALCULUS IN THE RIGHT KIDNEY. 2. LOW-ATTENUATION LESION IN THE SPLEEN MOST LIKELY DUE TO A HEMANGIOMA. METASTATIC LESION WOULD BE LESS COMMON BUT NOT EXCLUDED. 3. FINDINGS IN THE LUMBAR SPINE AND SACRUM EVALUATED WITH SEPARATE MRI. 4. NO OTHER SIGNIFICANT FINDINGS IN THE ABDOMEN OR PELVIS. Chest CT 10/04/17 19:35 IMPRESSION: NORMAL CT OF THE CHEST WITH IV CONTRAST. Soft Tissue Neck CT 10/04/17 19:35 IMPRESSION: ESSENTIALLY NO THYROID TISSUE VISUALIZED, EITHER MARKEDLY ATROPHIC OR SURGICALLY ABSENT. NO OTHER SIGNIFICANT FINDING IN THE SOFT TISSUES OF THE NECK. Body Scan Nuclear Medicine 10/05/17 00:00 IMPRESSION: Increased activity in the sacrum worrisome for insufficiency fracture. Pelvis MRI 10/07/17 00:00 IMPRESSION: ABNORMAL APPEARANCE OF THE UPPER SACRUM DESCRIBED. NO CHANGE COMPARED TO THE PREVIOUS LUMBAR MRI ON 10/04/2017. STRESS FRACTURE IS POSSIBLE BUT METASTASIS NEEDS TO BE CONSIDERED WELL. Chest X-Ray 10/09/17 00:00 IMPRESSION: Moderate cardiomegaly. Otherwise unremarkable study Extremity Ultrasound 10/09/17 00:00 IMPRESSION: No discrete left upper thigh/ greater trochanter region mass is identified at ultrasound Fluoroscopy 10/13/17 00:00 IMPRESSION: Intra procedural imaging and fluoro Sacrum and Coccyx X-Ray 10/13/17 00:00 IMPRESSION: Intra procedural imaging and fluoro Assessment & Plan - Diagnosis (1) Anemia Qualifiers: Anemia type: unspecified type Qualified Code(s): D64.9 - Anemia, unspecified Is this a current diagnosis for this admission?: Yes (2) Constipation Is this a current diagnosis for this admission?: Yes (3) Intractable back pain Is this a current diagnosis for this admission?: Yes (4) 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
[2017-10-20] MEDS: ATORVASTATIN CALCIUM 10 MG TABLET PO SCH (21:45)
[2017-10-21] MEDS: LEVOTHYROXINE SODIUM 0.025 MG TABLET PO SCH (05:03)
[2017-10-21] MEDS: LANSOPRAZOLE 15 MG TAB.RAP.DR PO SCH (05:03)
[2017-10-21] MEDS: LEVOTHYROXINE SODIUM 0.112 MG TABLET PO SCH (05:03)
[2017-10-21] MEDS: GABAPENTIN 300 MG CAPSULE PO SCH (05:03)
[2017-10-21] MEDS: OXYCODONE HCL IR 5 MG TABLET PO PRN ×4 (05:04→23:38)
[2017-10-21] MEDS: DOCUSATE SODIUM 100 MG CAPSULE PO SCH ×2 (10:46→17:48)
[2017-10-21] MEDS: BISACODYL 5 MG TABEC PO SCH ×2 (10:46→17:48)
[2017-10-21] MEDS: CLONIDINE HCL 0.2 MG TABLET PO SCH ×2 (10:47→21:58)
[2017-10-21] MEDS: ENOXAPARIN SODIUM INJ 40 MG/0.4 ML DISP.SYRIN SUBCUT SCH (10:48)
[2017-10-21] MEDS: LACTULOSE SYRUP 20 GM/30 ML UDCUP PO SCH ×2 (10:48→22:03)
[2017-10-21] MEDS: QUETIAPINE FUMARATE 25 MG TABLET PO SCH ×2 (10:48→22:00)
--- NOTE | 2017-10-21 12:42 | PDOC PROGRESS REPORT ---
Subjective Progress Note for:: 10/21/17 Subjective:: Ms Cash states that she still does not understand why she is unable to sit without pain. The increase seroquel helped, but still with shooting pain down her leg. No other complaints today. ROS: good BMs. No stomach upset. She still feels she needs to move due to the pain. No dyspnea. Reason For Visit: INTRACTABLE BACK PAIN Physical Exam Vital Signs: Temp Pulse Resp BP Pulse Ox 98.4 F 70 18 136/48 H 95 10/21/17 08:00 10/21/17 08:00 10/21/17 08:00 10/21/17 08:00 10/21/17 08:00 Intake & Output 10/20/17 10/21/17 10/22/17 06:59 06:59 06:59 Intake Total 944 1740 Balance 944 1740 General appearance: PRESENT: no acute distress Respiratory exam: PRESENT: clear to auscultation honey, unlabored Cardiovascular exam: PRESENT: RRR, systolic murmur Extremities exam: ABSENT: pedal edema Skin exam: PRESENT: normal color Results Laboratory Results: 10/20/17 04:10 10/20/17 04:10 Impressions: Lumbar Spine MRI 10/04/17 16:21 IMPRESSION: 1. FAIRLY EXTENSIVE ABNORMAL MARROW SIGNAL AND MARROW REPLACEMENT IN THE UPPER SACRUM MOST CONSISTENT WITH METASTATIC INVOLVEMENT. 2. MULTILEVEL CHRONIC DEGENERATIVE CHANGES IN THE LUMBAR SPINE DESCRIBED. Abdomen/Pelvis CT 10/04/17 19:35 IMPRESSION: 1. CORTICAL SCARRING IN THE KIDNEYS. NONOBSTRUCTING CALYCEAL CALCULUS IN THE RIGHT KIDNEY. 2. LOW-ATTENUATION LESION IN THE SPLEEN MOST LIKELY DUE TO A HEMANGIOMA. METASTATIC LESION WOULD BE LESS COMMON BUT NOT EXCLUDED. 3. FINDINGS IN THE LUMBAR SPINE AND SACRUM EVALUATED WITH SEPARATE MRI. 4. NO OTHER SIGNIFICANT FINDINGS IN THE ABDOMEN OR PELVIS. Chest CT 10/04/17 19:35 IMPRESSION: NORMAL CT OF THE CHEST WITH IV CONTRAST. Soft Tissue Neck CT 10/04/17 19:35 IMPRESSION: ESSENTIALLY NO THYROID TISSUE VISUALIZED, EITHER MARKEDLY ATROPHIC OR SURGICALLY ABSENT. NO OTHER SIGNIFICANT FINDING IN THE SOFT TISSUES OF THE NECK. Body Scan Nuclear Medicine 10/05/17 00:00 IMPRESSION: Increased activity in the sacrum worrisome for insufficiency fracture. Pelvis MRI 10/07/17 00:00 IMPRESSION: ABNORMAL APPEARANCE OF THE UPPER SACRUM DESCRIBED. NO CHANGE COMPARED TO THE PREVIOUS LUMBAR MRI ON 10/04/2017. STRESS FRACTURE IS POSSIBLE BUT METASTASIS NEEDS TO BE CONSIDERED WELL. Chest X-Ray 10/09/17 00:00 IMPRESSION: Moderate cardiomegaly. Otherwise unremarkable study Extremity Ultrasound 10/09/17 00:00 IMPRESSION: No discrete left upper thigh/ greater trochanter region mass is identified at ultrasound Fluoroscopy 10/13/17 00:00 IMPRESSION: Intra procedural imaging and fluoro Sacrum and Coccyx X-Ray 10/13/17 00:00 IMPRESSION: Intra procedural imaging and fluoro Assessment & Plan - Diagnosis (1) Sacral fracture, closed Is this a current diagnosis for this admission?: Yes Plan: Biopsy and labs for myeloma or cancer have been negative. Unsure what is causing the pain, other than a stress fracture. (2) Intractable back pain Is this a current diagnosis for this admission?: Yes Plan: Her pain has been resistant to opiods which is not surprising for bone pain. I will increase her seroquel and increase her neurontin, as this may help the neuropathic pain a bit better. I have requested that the nursing staff watch for oversedation with this change. (3) Anemia Qualifiers: Anemia type: unspecified type Qualified Code(s): D64.9 - Anemia, unspecified Is this a current diagnosis for this admission?: Yes Plan: Stable (4) Constipation Is this a current diagnosis for this admission?: Yes Plan: continue Laxatives. She had good BM today. - Plan Summary Plan Summary: Will continue to try to adjust her pain meds. Please call with concerns.
[2017-10-21] MEDS: GABAPENTIN 400 MG CAPSULE PO SCH ×2 (14:03→23:39)
--- NOTE | 2017-10-21 17:16 | PDOC PROGRESS REPORT ---
Subjective Progress Note for:: 10/21/17 Subjective:: patient appears more comfortable pain is better controlled constipation improved Reason For Visit: INTRACTABLE BACK PAIN Physical Exam Vital Signs: Temp Pulse Resp BP Pulse Ox 98.6 F 80 18 124/50 L 94 10/21/17 16:30 10/21/17 16:30 10/21/17 16:30 10/21/17 16:30 10/21/17 16:30 Intake & Output 10/20/17 10/21/17 10/22/17 00:59 00:59 00:59 Intake Total 562 2462 562 2462 General appearance: PRESENT: mild distress Head exam: PRESENT: atraumatic, normocephalic Eye exam: PRESENT: conjunctiva pink, EOMI, PERRLA. ABSENT: scleral icterus Respiratory exam: PRESENT: clear to auscultation honey. ABSENT: rales, rhonchi, wheezes Cardiovascular exam: PRESENT: RRR. ABSENT: diastolic murmur, rubs, systolic murmur Pulses: PRESENT: normal dorsalis pedis pul GI/Abdominal exam: PRESENT: normal bowel sounds, soft. ABSENT: distended, guarding, mass, organolmegaly, rebound, tenderness Extremities exam: PRESENT: calf tenderness Neurological exam: PRESENT: CN II-XII grossly intactBalance Results Laboratory Results: 10/20/17 04:10 10/20/17 04:10 Impressions: Lumbar Spine MRI 10/04/17 16:21 IMPRESSION: 1. FAIRLY EXTENSIVE ABNORMAL MARROW SIGNAL AND MARROW REPLACEMENT IN THE UPPER SACRUM MOST CONSISTENT WITH METASTATIC INVOLVEMENT. 2. MULTILEVEL CHRONIC DEGENERATIVE CHANGES IN THE LUMBAR SPINE DESCRIBED. Abdomen/Pelvis CT 10/04/17 19:35 IMPRESSION: 1. CORTICAL SCARRING IN THE KIDNEYS. NONOBSTRUCTING CALYCEAL CALCULUS IN THE RIGHT KIDNEY. 2. LOW-ATTENUATION LESION IN THE SPLEEN MOST LIKELY DUE TO A HEMANGIOMA. METASTATIC LESION WOULD BE LESS COMMON BUT NOT EXCLUDED. 3. FINDINGS IN THE LUMBAR SPINE AND SACRUM EVALUATED WITH SEPARATE MRI. 4. NO OTHER SIGNIFICANT FINDINGS IN THE ABDOMEN OR PELVIS. Chest CT 10/04/17 19:35 IMPRESSION: NORMAL CT OF THE CHEST WITH IV CONTRAST. Soft Tissue Neck CT 10/04/17 19:35 IMPRESSION: ESSENTIALLY NO THYROID TISSUE VISUALIZED, EITHER MARKEDLY ATROPHIC OR SURGICALLY ABSENT. NO OTHER SIGNIFICANT FINDING IN THE SOFT TISSUES OF THE NECK. Body Scan Nuclear Medicine 10/05/17 00:00 IMPRESSION: Increased activity in the sacrum worrisome for insufficiency fracture. Pelvis MRI 10/07/17 00:00 IMPRESSION: ABNORMAL APPEARANCE OF THE UPPER SACRUM DESCRIBED. NO CHANGE COMPARED TO THE PREVIOUS LUMBAR MRI ON 10/04/2017. STRESS FRACTURE IS POSSIBLE BUT METASTASIS NEEDS TO BE CONSIDERED WELL. Chest X-Ray 10/09/17 00:00 IMPRESSION: Moderate cardiomegaly. Otherwise unremarkable study Extremity Ultrasound 10/09/17 00:00 IMPRESSION: No discrete left upper thigh/ greater trochanter region mass is identified at ultrasound Fluoroscopy 10/13/17 00:00 IMPRESSION: Intra procedural imaging and fluoro Sacrum and Coccyx X-Ray 10/13/17 00:00 IMPRESSION: Intra procedural imaging and fluoro Assessment & Plan - Diagnosis (1) Anemia Qualifiers: Anemia type: unspecified type Qualified Code(s): D64.9 - Anemia, unspecified Is this a current diagnosis for this admission?: Yes (2) Constipation Is this a current diagnosis for this admission?: Yes (3) Intractable back pain Is this a current diagnosis for this admission?: Yes (4) 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
[2017-10-21] MEDS: ASPIRIN 81 MG TABLET, CHEWABLE PO SCH (17:48)
[2017-10-21] MEDS: AMLODIPINE BESYLATE 10 MG TABLET PO SCH (17:48)
[2017-10-21] MEDS: METOPROLOL TARTRATE 100 MG TABLET PO SCH (17:48)
[2017-10-21] MEDS: CYCLOBENZAPRINE HCL 10 MG TABLET PO PRN (19:43)
[2017-10-21] MEDS: ATORVASTATIN CALCIUM 10 MG TABLET PO SCH (22:03)
[2017-10-21] MEDS: INSULIN LISPRO 100 UNIT/ML 3 ML VIAL SUBCUT PRN (22:08)
[2017-10-22] MEDS: OXYCODONE HCL IR 5 MG TABLET PO PRN ×4 (03:50→21:35)
[2017-10-22] MEDS: LEVOTHYROXINE SODIUM 0.025 MG TABLET PO SCH (05:36)
[2017-10-22] MEDS: LANSOPRAZOLE 15 MG TAB.RAP.DR PO SCH (05:36)
[2017-10-22] MEDS: LEVOTHYROXINE SODIUM 0.112 MG TABLET PO SCH (05:36)
[2017-10-22] MEDS: GABAPENTIN 400 MG CAPSULE PO SCH ×3 (05:36→21:36)
[2017-10-22] MEDS ORDERED: POLYETHYLENE GLYCOL 3350 POWDER 17 GM/1 PACKET PO PRN (07:34)
--- NOTE | 2017-10-22 07:39 | PDOC PROGRESS REPORT ---
Subjective Progress Note for:: 10/22/17 Subjective:: Patient states that she did not sleep well last night, as she changed rooms in the middle of the night. She states that her pain is about the same. She still feels constipated. Reason For Visit: INTRACTABLE BACK PAIN Physical Exam Vital Signs: Temp Pulse Resp BP Pulse Ox 98.1 F 68 18 142/57 H 92 10/22/17 04:00 10/22/17 04:00 10/22/17 04:00 10/22/17 04:00 10/22/17 04:00 Intake & Output 10/21/17 10/22/17 10/23/17 06:59 06:59 06:59 Intake Total 1740 1740 Balance 1740 1740 General appearance: PRESENT: no acute distress Exam: Sleepy today, but still alert and oriented. Focused psych exam: PRESENT: other - Not as restless as previously. Skin exam: PRESENT: normal color Results Laboratory Results: 10/20/17 04:10 10/20/17 04:10 Impressions: Lumbar Spine MRI 10/04/17 16:21 IMPRESSION: 1. FAIRLY EXTENSIVE ABNORMAL MARROW SIGNAL AND MARROW REPLACEMENT IN THE UPPER SACRUM MOST CONSISTENT WITH METASTATIC INVOLVEMENT. 2. MULTILEVEL CHRONIC DEGENERATIVE CHANGES IN THE LUMBAR SPINE DESCRIBED. Abdomen/Pelvis CT 10/04/17 19:35 IMPRESSION: 1. CORTICAL SCARRING IN THE KIDNEYS. NONOBSTRUCTING CALYCEAL CALCULUS IN THE RIGHT KIDNEY. 2. LOW-ATTENUATION LESION IN THE SPLEEN MOST LIKELY DUE TO A HEMANGIOMA. METASTATIC LESION WOULD BE LESS COMMON BUT NOT EXCLUDED. 3. FINDINGS IN THE LUMBAR SPINE AND SACRUM EVALUATED WITH SEPARATE MRI. 4. NO OTHER SIGNIFICANT FINDINGS IN THE ABDOMEN OR PELVIS. Chest CT 10/04/17 19:35 IMPRESSION: NORMAL CT OF THE CHEST WITH IV CONTRAST. Soft Tissue Neck CT 10/04/17 19:35 IMPRESSION: ESSENTIALLY NO THYROID TISSUE VISUALIZED, EITHER MARKEDLY ATROPHIC OR SURGICALLY ABSENT. NO OTHER SIGNIFICANT FINDING IN THE SOFT TISSUES OF THE NECK. Body Scan Nuclear Medicine 10/05/17 00:00 IMPRESSION: Increased activity in the sacrum worrisome for insufficiency fracture. Pelvis MRI 10/07/17 00:00 IMPRESSION: ABNORMAL APPEARANCE OF THE UPPER SACRUM DESCRIBED. NO CHANGE COMPARED TO THE PREVIOUS LUMBAR MRI ON 10/04/2017. STRESS FRACTURE IS POSSIBLE BUT METASTASIS NEEDS TO BE CONSIDERED WELL. Chest X-Ray 10/09/17 00:00 IMPRESSION: Moderate cardiomegaly. Otherwise unremarkable study Extremity Ultrasound 10/09/17 00:00 IMPRESSION: No discrete left upper thigh/ greater trochanter region mass is identified at ultrasound Fluoroscopy 10/13/17 00:00 IMPRESSION: Intra procedural imaging and fluoro Sacrum and Coccyx X-Ray 10/13/17 00:00 IMPRESSION: Intra procedural imaging and fluoro Assessment & Plan - Diagnosis (1) Sacral fracture, closed Is this a current diagnosis for this admission?: Yes (2) Intractable back pain Is this a current diagnosis for this admission?: Yes Plan: I again reviewed all pain meds with nursing. She is supposed to have Duragesic 125 mcg patch q 3 days. Her Seroquel and gabapentin were just increased yesterday. I will give these new doses another 24 hours before making any other changes. Her oxycodone dose was decreased, but I have asked nurses to call me if this needs to be increased again. (3) Anemia Qualifiers: Anemia type: unspecified type Qualified Code(s): D64.9 - Anemia, unspecified Is this a current diagnosis for this admission?: Yes (4) Constipation Is this a current diagnosis for this admission?: Yes Plan: She has Senna-S BID. I will add Miralax daily PRN. Consider increasing Senna S to double dose BID. - Plan Summary Plan Summary: Hoping for transfer to rehab tomorrow. I have again explained to the patient that the only known reason for her pain is the sacral fracture. Consider repeat MRI if no improvement. I also believe constipation may be contributing to her pain.
[2017-10-22] MEDS: FENTANYL 25 MCG/HR PATCH.TD72 TD SCH (09:19)
[2017-10-22] MEDS: DOCUSATE SODIUM 100 MG CAPSULE PO SCH ×2 (09:19→17:19)
[2017-10-22] MEDS: LACTULOSE SYRUP 20 GM/30 ML UDCUP PO SCH ×2 (09:19→21:42)
[2017-10-22] MEDS: FENTANYL 100 MCG/HR PATCH.TD72 TD SCH ×2 (09:20→09:22)
[2017-10-22] MEDS: ENOXAPARIN SODIUM INJ 40 MG/0.4 ML DISP.SYRIN SUBCUT SCH (09:21)
[2017-10-22] MEDS: QUETIAPINE FUMARATE 25 MG TABLET PO SCH ×2 (10:15→21:35)
[2017-10-22] MEDS: CLONIDINE HCL 0.2 MG TABLET PO SCH ×2 (10:15→21:36)
[2017-10-22] MEDS: BISACODYL 5 MG TABEC PO SCH ×2 (10:27→17:21)
[2017-10-22] MEDS: INSULIN LISPRO 100 UNIT/ML 3 ML VIAL SUBCUT PRN ×3 (11:27→23:32)
[2017-10-22] MEDS: METOPROLOL TARTRATE 100 MG TABLET PO SCH (17:21)
[2017-10-22] MEDS: AMLODIPINE BESYLATE 10 MG TABLET PO SCH (17:22)
[2017-10-22] MEDS: ASPIRIN 81 MG TABLET, CHEWABLE PO SCH (17:22)
--- NOTE | 2017-10-22 18:12 | PDOC DISCHARGE SUMMARY ---
General - Admit/Disc Date/PCP Admission Date/Primary Care Provider: 10/04/17 22:26 KATHY LOPEZ MD Discharge Date: 10/23/17 - Discharge Diagnosis (1) Anemia Is this a current diagnosis for this admission?: Yes Summary: Anemia of chronic disease stable (2) Constipation Is this a current diagnosis for this admission?: Yes (3) Intractable back pain Is this a current diagnosis for this admission?: Yes Summary: Patient had a sacral fracture; she underwent kyphoplasty thought initially to be a pathologic fracture secondary to metastatic disease At this time the etiology is unclear Pain is better controlled with fentanyl patch 125 mcg and oxycodone 5 mg every 4H as needed (4) 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 Arguello oncology Patient underwent kyphoplasty with very mild improvement of the pain (5) Mass of left thigh Is this a current diagnosis for this admission?: Yes (6) Sacral fracture, closed Is this a current diagnosis for this admission?: Yes (7) Urinary tract infection Is this a current diagnosis for this admission?: Yes Summary: Resolved (8) Ambulatory dysfunction Is this a current diagnosis for this admission?: Yes Summary: Patient is not able to ambulate on her own She was evaluated by physical therapy and she was found to be a candidate for short-term rehab - Additional Information Resuscitation Status: Full Code Prescriptions: Fentanyl [Duragesic 100 Mcg/Hr Transdermal Patch] 1 each TD Q3DAYS 30 Days #10 patch.td72 Fentanyl [Duragesic 25 mcg/hr Transdermal Patch] 1 each TD Q3DAYS 10 Days #10 patch.td72 Oxycodone HCl [Oxy-Ir 5 mg Tablet] 5 mg PO Q4HP PRN 10 Days #30 tablet PRN Reason: Gabapentin [Neurontin 400 mg Capsule] 400 mg PO Q8 30 Days #90 capsule Lactulose [Cephulac Syrup 20 gm/30 ml Udcup] 20 gm PO Q12 30 Days #450 ml Quetiapine Fumarate [Seroquel 25 mg Tablet] 50 mg PO Q12 30 Days #60 tablet Home Medications: Amlodipine Besylate [Norvasc 10 mg Tablet] 10 mg PO DAILY 10/05/17 Aspirin 81 mg PO DAILY 10/05/17 Clonidine HCl [Catapres 0.2 mg Tablet] 0.2 mg PO Q12 10/05/17 Cyclobenzaprine HCl [Flexeril 10 mg Tablet] 10 mg PO TIDP PRN 10/05/17 Ergocalciferol (Vitamin D2) [Vitamin D2] 50,000 unit PO .QWEEKLY 10/05/17 Gabapentin 400 mg PO Q6 10/05/17 Glimepiride 4 mg PO DAILY 10/05/17 Levothyroxine Sodium [Levo-T] 137 mcg PO DAILY 10/05/17 Meloxicam [Mobic] 7.5 mg PO QAM 10/05/17 Metformin HCl [Glucophage 500 mg Tablet] 500 mg PO BIDBL 10/05/17 Metoprolol Tartrate [Lopressor 100 mg Tablet] 100 mg PO DAILY 10/05/17 Pravastatin Sodium [Pravachol] 40 mg PO DAILY 10/05/17 Quetiapine Fumarate 25 mg PO DAILY 10/05/17 Metformin HCl [Glucophage 500 mg Tablet] 1,000 mg PO QHS 10/06/17 Fentanyl [Duragesic 100 Mcg/Hr Transdermal Patch] 1 each TD Q3DAYS 30 Days #10 patch.td72 10/22/17 Fentanyl [Duragesic 25 mcg/hr Transdermal Patch] 1 each TD Q3DAYS 10 Days #10 patch.td72 10/22/17 Gabapentin [Neurontin 400 mg Capsule] 400 mg PO Q8 30 Days #90 capsule 10/22/17 Lactulose [Cephulac Syrup 20 gm/30 ml Udcup] 20 gm PO Q12 30 Days #450 ml Oxycodone HCl [Oxy-Ir 5 mg Tablet] 5 mg PO Q4HP PRN 10 Days #30 tablet 10/22/17 Quetiapine Fumarate [Seroquel 25 mg Tablet] 50 mg PO Q12 30 Days #60 tablet 08/06 History of Present Illness Patient complains of: back pain History of Present Illness: BELLO DIAZ is a 72 year old female patient with past medical history of hypertension, diabetes mellitus, hypothyroidism, obesity presented with chief complaint of back pain. Patient reported as she started to have back pain since last Easter in the last several days it becomes increasingly worse. Patient has history of thyroidectomy which happened 10 years ago and reportedly the biopsy was negative for malignancy. Her MRI of the spine which is done today reported as followed fairly extensive abnormal marrow signal and marrow replacement in the upper sacrum most consistent with metastatic involvement. Patient also endorses unintentional weight loss of 14 pound last 2 weeks. She denied any abdominal pain or any change in her bowel habits, hematochezia or melanotic stool. No nausea, vomiting, diarrhea, fever, chills, cough, chest pain or urinary complaints. Physical Exam Vital Signs: Temp Pulse Resp BP Pulse Ox 97.9 F 68 18 126/58 H 93 10/22/17 11:13 10/22/17 11:13 10/22/17 11:13 10/22/17 11:13 10/22/17 11:13 Intake & Output 10/21/17 10/22/17 10/23/17 00:59 00:59 00:59 Intake Total 2462 1740 240 Balance 2462 1740 240 Results Laboratory Results: 10/20/17 04:10 10/20/17 04:10 Impressions: Lumbar Spine MRI 10/04/17 16:21 IMPRESSION: 1. FAIRLY EXTENSIVE ABNORMAL MARROW SIGNAL AND MARROW REPLACEMENT IN THE UPPER SACRUM MOST CONSISTENT WITH METASTATIC INVOLVEMENT. 2. MULTILEVEL CHRONIC DEGENERATIVE CHANGES IN THE LUMBAR SPINE DESCRIBED. Abdomen/Pelvis CT 10/04/17 19:35 IMPRESSION: 1. CORTICAL SCARRING IN THE KIDNEYS. NONOBSTRUCTING CALYCEAL CALCULUS IN THE RIGHT KIDNEY. 2. LOW-ATTENUATION LESION IN THE SPLEEN MOST LIKELY DUE TO A HEMANGIOMA. METASTATIC LESION WOULD BE LESS COMMON BUT NOT EXCLUDED. 3. FINDINGS IN THE LUMBAR SPINE AND SACRUM EVALUATED WITH SEPARATE MRI. 4. NO OTHER SIGNIFICANT FINDINGS IN THE ABDOMEN OR PELVIS. Chest CT 10/04/17 19:35 IMPRESSION: NORMAL CT OF THE CHEST WITH IV CONTRAST. Soft Tissue Neck CT 10/04/17 19:35 IMPRESSION: ESSENTIALLY NO THYROID TISSUE VISUALIZED, EITHER MARKEDLY ATROPHIC OR SURGICALLY ABSENT. NO OTHER SIGNIFICANT FINDING IN THE SOFT TISSUES OF THE NECK. Body Scan Nuclear Medicine 10/05/17 00:00 IMPRESSION: Increased activity in the sacrum worrisome for insufficiency fracture. Pelvis MRI 10/07/17 00:00 IMPRESSION: ABNORMAL APPEARANCE OF THE UPPER SACRUM DESCRIBED. NO CHANGE COMPARED TO THE PREVIOUS LUMBAR MRI ON 10/04/2017. STRESS FRACTURE IS POSSIBLE BUT METASTASIS NEEDS TO BE CONSIDERED WELL. Chest X-Ray 10/09/17 00:00 IMPRESSION: Moderate cardiomegaly. Otherwise unremarkable study Extremity Ultrasound 10/09/17 00:00 IMPRESSION: No discrete left upper thigh/ greater trochanter region mass is identified at ultrasound Fluoroscopy 10/13/17 00:00 IMPRESSION: Intra procedural imaging and fluoro Sacrum and Coccyx X-Ray 10/13/17 00:00 IMPRESSION: Intra procedural imaging and fluoro Qualifiers - * PATIENT BEING DISCHARGED WITH ANY OF THE FOLLOWING DIAGNOSIS: No Plan Discharge Plan: Transfer to short-term rehab when a bed is available Time Spent: Greater than 30 Minutes
[2017-10-22] MEDS: ATORVASTATIN CALCIUM 10 MG TABLET PO SCH (21:36)
[2017-10-23] MEDS: OXYCODONE HCL IR 5 MG TABLET PO PRN ×3 (06:21→23:46)
[2017-10-23] MEDS: LEVOTHYROXINE SODIUM 0.112 MG TABLET PO SCH (06:21)
[2017-10-23] MEDS: LANSOPRAZOLE 15 MG TAB.RAP.DR PO SCH (06:21)
[2017-10-23] MEDS: GABAPENTIN 400 MG CAPSULE PO SCH ×3 (06:21→23:45)
[2017-10-23] MEDS: LEVOTHYROXINE SODIUM 0.025 MG TABLET PO SCH (06:22)
[2017-10-23 07:45] LABS: ABSOLUTE BASOPHILS # (AUTO) 0.1 10^3/uL (0.0-0.2); ABSOLUTE EOSINOPHILS # (AUTO) 0.4 10^3/uL (0.0-0.6); ABSOLUTE LYMPHOCYTES (AUTO) 2.4 10^3/uL (0.5-4.7); ABSOLUTE MONOCYTES (AUTO) 0.9 10^3/uL (0.1-1.4); ABSOLUTE NEUT (AUTO) 3.8 10^3/uL (1.7-8.2); EOSINOPHILS % (AUTO) 5.6 % (0-6); HEMATOCRIT 34.6 % (36.0-47.0); HEMOGLOBIN 11.6 g/dL (12.0-15.5); LYMPHOCYTES % (AUTO) 31.8 % (13-45); MEAN CORPUSCULAR HEMOGLOBIN 30.3 pg (27.0-33.4); MEAN CORPUSCULAR HGB CONC 33.6 g/dL (32.0-36.0); MEAN CORPUSCULAR VOLUME 90 fl (80-97); MONOCYTES % (AUTO) 11.5 % (3-13); PLATELET COUNT 446 10^3/uL (150-450); RED BLOOD COUNT 3.84 10^6/uL (3.72-5.28); RED CELL DISTRIBUTION WIDTH 13.6 % (11.5-14.0); SEGMENTED NEUTROPHILS % (AUTO) 50.1 % (42-78); TOTAL CELLS COUNTED % (AUTO) 100 %; WHITE BLOOD COUNT 7.6 10^3/uL (4.0-10.5)
[2017-10-23 07:53] LABS: ANION GAP 10 (5-19); BLOOD UREA NITROGEN 12 mg/dL (7-20); CALCIUM 9.3 mg/dL (8.4-10.2); CARBON DIOXIDE 30 mmol/L (22-30); CHLORIDE 101 mmol/L (98-107); GLUCOSE 131 mg/dL (75-110); POTASSIUM 4.4 mmol/L (3.6-5.0); SODIUM 140.9 mmol/L (137-145)
--- NOTE | 2017-10-23 08:19 | PDOC PROGRESS REPORT ---
Subjective Progress Note for:: 10/23/17 Subjective:: Patient states pain is better today, but she is still not able to sit up and has increased pain with any walking. She does not understand why she is still having pain. She continues to have BMs. She does not believe the current meds are causing side effects or woozy feelings. Reason For Visit: INTRACTABLE BACK PAIN Physical Exam Vital Signs: Temp Pulse Resp BP Pulse Ox 98.0 F 67 16 142/61 H 95 10/23/17 06:40 10/23/17 06:40 10/23/17 06:40 10/23/17 06:40 10/23/17 06:40 Intake & Output 10/22/17 10/23/17 10/24/17 06:59 06:59 06:59 Intake Total 1740 1378 Balance 1740 1378 Weight 90.4 kg General appearance: PRESENT: no acute distress Exam: Overweight. Mouth exam: PRESENT: moist Respiratory exam: PRESENT: unlabored Extremities exam: ABSENT: pedal edema Neurological exam: PRESENT: alert, awake Psychiatric exam: PRESENT: appropriate affect Focused psych exam: PRESENT: restlessness Skin exam: PRESENT: normal color Results Laboratory Results: 10/23/17 07:21 10/23/17 07:21 10/23/17 10/23/17 07:21 07:21 WBC 7.6 RBC 3.84 Hgb 11.6 L Hct 34.6 L MCV 90 MCH 30.3 MCHC 33.6 RDW 13.6 Plt Count 446 Seg Neutrophils % 50.1 Lymphocytes % 31.8 Monocytes % 11.5 Eosinophils % 5.6 Basophils % 1.0 Absolute Neutrophils 3.8 Absolute Lymphocytes 2.4 Absolute Monocytes 0.9 Absolute Eosinophils 0.4 Absolute Basophils 0.1 Sodium 140.9 Potassium 4.4 Chloride 101 Carbon Dioxide 30 Anion Gap 10 BUN 12 Creatinine 0.56 Est GFR ( Amer) > 60 Est GFR (Non-Af Amer) > 60 Glucose 131 H Calcium 9.3 Impressions: Lumbar Spine MRI 10/04/17 16:21 IMPRESSION: 1. FAIRLY EXTENSIVE ABNORMAL MARROW SIGNAL AND MARROW REPLACEMENT IN THE UPPER SACRUM MOST CONSISTENT WITH METASTATIC INVOLVEMENT. 2. MULTILEVEL CHRONIC DEGENERATIVE CHANGES IN THE LUMBAR SPINE DESCRIBED. Abdomen/Pelvis CT 10/04/17 19:35 IMPRESSION: 1. CORTICAL SCARRING IN THE KIDNEYS. NONOBSTRUCTING CALYCEAL CALCULUS IN THE RIGHT KIDNEY. 2. LOW-ATTENUATION LESION IN THE SPLEEN MOST LIKELY DUE TO A HEMANGIOMA. METASTATIC LESION WOULD BE LESS COMMON BUT NOT EXCLUDED. 3. FINDINGS IN THE LUMBAR SPINE AND SACRUM EVALUATED WITH SEPARATE MRI. 4. NO OTHER SIGNIFICANT FINDINGS IN THE ABDOMEN OR PELVIS. Chest CT 10/04/17 19:35 IMPRESSION: NORMAL CT OF THE CHEST WITH IV CONTRAST. Soft Tissue Neck CT 10/04/17 19:35 IMPRESSION: ESSENTIALLY NO THYROID TISSUE VISUALIZED, EITHER MARKEDLY ATROPHIC OR SURGICALLY ABSENT. NO OTHER SIGNIFICANT FINDING IN THE SOFT TISSUES OF THE NECK. Body Scan Nuclear Medicine 10/05/17 00:00 IMPRESSION: Increased activity in the sacrum worrisome for insufficiency fracture. Pelvis MRI 10/07/17 00:00 IMPRESSION: ABNORMAL APPEARANCE OF THE UPPER SACRUM DESCRIBED. NO CHANGE COMPARED TO THE PREVIOUS LUMBAR MRI ON 10/04/2017. STRESS FRACTURE IS POSSIBLE BUT METASTASIS NEEDS TO BE CONSIDERED WELL. Chest X-Ray 10/09/17 00:00 IMPRESSION: Moderate cardiomegaly. Otherwise unremarkable study Extremity Ultrasound 10/09/17 00:00 IMPRESSION: No discrete left upper thigh/ greater trochanter region mass is identified at ultrasound Fluoroscopy 10/13/17 00:00 IMPRESSION: Intra procedural imaging and fluoro Sacrum and Coccyx X-Ray 10/13/17 00:00 IMPRESSION: Intra procedural imaging and fluoro Assessment & Plan - Diagnosis (1) Sacral fracture, closed Is this a current diagnosis for this admission?: Yes (2) Intractable back pain Is this a current diagnosis for this admission?: Yes (3) Anemia Qualifiers: Anemia type: unspecified type Qualified Code(s): D64.9 - Anemia, unspecified Is this a current diagnosis for this admission?: Yes (4) Constipation Is this a current diagnosis for this admission?: Yes - Plan Summary Plan Summary: Await transfer to rehab. Continue bowel regimen and pain regimen. I will try to reach Dr De La Cruz again for further suggestions on her pain management.
--- NOTE | 2017-10-23 09:12 | PDOC TRANSFER SUMMARY ---
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 She will follow-up with Dr. Cabrera as an outpatient. She did undergo kyphoplasty with only minimal improvement in her pain. (2) Intractable back pain Is this a current diagnosis for this admission?: Yes Summary: Her pain is adequately controlled on the current regimen. (3) Urinary tract infection Is this a current diagnosis for this admission?: Yes Summary: Urine culture remained negative. She completed a course of antibiotic therapy (4) Sacral fracture, closed Is this a current diagnosis for this admission?: Yes Summary: Again she underwent kyphoplasty with minimal improvement to her pain. (5) Mass of left thigh Is this a current diagnosis for this admission?: Yes Summary: Diagnosis is still unclear. She will follow-up with Dr. Cabrera as an outpatient (6) Hypertension Is this a current diagnosis for this admission?: Yes Summary: Stable (7) Diabetes mellitus Is this a current diagnosis for this admission?: Yes Summary: Stable on current regimen (8) Anemia Is this a current diagnosis for this admission?: Yes Summary: This is a mild normocytic anemia consistent with chronic disease (9) Hyperkalemia Is this a current diagnosis for this admission?: Yes Summary: Resolved - Additional Information Resuscitation Status: Full Code Prescriptions: Fentanyl [Duragesic 100 Mcg/Hr Transdermal Patch] 1 each TD Q3DAYS 30 Days #10 patch.td72 Fentanyl [Duragesic 25 mcg/hr Transdermal Patch] 1 each TD Q3DAYS 10 Days #10 patch.td72 Oxycodone HCl [Oxy-Ir 5 mg Tablet] 5 mg PO Q4HP PRN 10 Days #30 tablet PRN Reason: Gabapentin [Neurontin 400 mg Capsule] 400 mg PO Q8 30 Days #90 capsule Lactulose [Cephulac Syrup 20 gm/30 ml Udcup] 20 gm PO Q12 30 Days #450 ml Quetiapine Fumarate [Seroquel 25 mg Tablet] 50 mg PO Q12 30 Days #60 tablet Home Medications: Amlodipine Besylate [Norvasc 10 mg Tablet] 10 mg PO DAILY 10/05/17 Aspirin 81 mg PO DAILY 10/05/17 Clonidine HCl [Catapres 0.2 mg Tablet] 0.2 mg PO Q12 10/05/17 Cyclobenzaprine HCl [Flexeril 10 mg Tablet] 10 mg PO TIDP PRN 10/05/17 Ergocalciferol (Vitamin D2) [Vitamin D2] 50,000 unit PO .QWEEKLY 10/05/17 Gabapentin 400 mg PO Q6 10/05/17 Glimepiride 4 mg PO DAILY 10/05/17 Levothyroxine Sodium [Levo-T] 137 mcg PO DAILY 10/05/17 Meloxicam [Mobic] 7.5 mg PO QAM 10/05/17 Metformin HCl [Glucophage 500 mg Tablet] 500 mg PO BIDBL 10/05/17 Metoprolol Tartrate [Lopressor 100 mg Tablet] 100 mg PO DAILY 10/05/17 Pravastatin Sodium [Pravachol] 40 mg PO DAILY 10/05/17 Quetiapine Fumarate 25 mg PO DAILY 10/05/17 Metformin HCl [Glucophage 500 mg Tablet] 1,000 mg PO QHS 10/06/17 Fentanyl [Duragesic 100 Mcg/Hr Transdermal Patch] 1 each TD Q3DAYS 30 Days #10 patch.td72 10/22/17 Fentanyl [Duragesic 25 mcg/hr Transdermal Patch] 1 each TD Q3DAYS 10 Days #10 patch.td72 10/22/17 Gabapentin [Neurontin 400 mg Capsule] 400 mg PO Q8 30 Days #90 capsule 10/22/17 Lactulose [Cephulac Syrup 20 gm/30 ml Udcup] 20 gm PO Q12 30 Days #450 ml Oxycodone HCl [Oxy-Ir 5 mg Tablet] 5 mg PO Q4HP PRN 10 Days #30 tablet 10/22/17 Quetiapine Fumarate [Seroquel 25 mg Tablet] 50 mg PO Q12 30 Days #60 tablet 08/06 History of Present Illness Admission Date/PCP: 10/04/17 22:26 KATHY LOPEZ MD History of Present Illness: BELLO DIAZ is a 72 year old female who presented to the emergency room with intractable back pain Hospital Course Hospital Course: The patient is an obese 72-year-old female with a past medical history significant for diabetes mellitus. She presented to the emergency room with intractable back pain and was found to have a pathologic sacral fracture. She had an MRI of the pelvis which revealed an area of solid mass in the left thigh that was suspicious for malignancy. The patient was also found to have evidence of a urinary tract infection. She completed a course of therapy during this hospitalization. The patient was followed by pain management during this hospitalization and underwent a kyphoplasty with biopsy. This did not reveal an underlying malignancy. Serologic workup was negative except for a CD20 population of B cells. Oncology plans to follow-up bone marrow biopsy results and get a second opinion from [facility]. Overall the patient is stable. She is significantly debilitated after this acute prolonged hospitalization as well as her underlying pain. She and her family have opted to pursue subacute rehabilitation. She will be transferred to a facility today in stable condition and follow-up with oncology as an outpatient. Physical Exam Vital Signs: Temp Pulse Resp BP Pulse Ox 98.1 F 77 16 138/72 H 92 10/23/17 08:04 10/23/17 08:04 10/23/17 08:04 10/23/17 08:04 10/23/17 08:04 Intake & Output 10/22/17 10/23/17 10/24/17 06:59 06:59 06:59 Intake Total 1740 1378 Balance 1740 1378 Weight 90.4 kg General appearance: PRESENT: no acute distress, morbidly obese, well-developed, well-nourished Head exam: PRESENT: atraumatic, normocephalic Eye exam: PRESENT: conjunctiva pink, EOMI, PERRLA. ABSENT: scleral icterus Mouth exam: PRESENT: moist, tongue midline Neck exam: ABSENT: carotid bruit, JVD, lymphadenopathy, thyromegaly Respiratory exam: PRESENT: clear to auscultation honey. ABSENT: rales, rhonchi, wheezes Cardiovascular exam: PRESENT: RRR. ABSENT: diastolic murmur, rubs, systolic murmur Vascular exam: PRESENT: normal capillary refill GI/Abdominal exam: PRESENT: normal bowel sounds, soft. ABSENT: distended, guarding, mass, organolmegaly, rebound, tenderness Rectal exam: PRESENT: deferred Extremities exam: ABSENT: calf tenderness, clubbing, pedal edema Neurological exam: PRESENT: alert, awake, oriented to person, oriented to place , oriented to time, oriented to situation, CN II-XII grossly intact. ABSENT: motor sensory deficit Psychiatric exam: PRESENT: appropriate affect, normal mood. ABSENT: homicidal ideation, suicidal ideation Skin exam: PRESENT: dry, intact, warm. ABSENT: cyanosis, rash Results Laboratory Results: 10/23/17 07:21 10/23/17 07:21 18 10/23/17 07:21 07:21 WBC 7.6 RBC 3.84 Hgb 11.6 L Hct 34.6 L MCV 90 MCH 30.3 MCHC 33.6 RDW 13.6 Plt Count 446 Seg Neutrophils % 50.1 Lymphocytes % 31.8 Monocytes % 11.5 Eosinophils % 5.6 Basophils % 1.0 Absolute Neutrophils 3.8 Absolute Lymphocytes 2.4 Absolute Monocytes 0.9 Absolute Eosinophils 0.4 Absolute Basophils 0.1 Sodium 140.9 Potassium 4.4 Chloride 101 Carbon Dioxide 30 Anion Gap 10 BUN 12 Creatinine 0.56 Est GFR ( Amer) > 60 Est GFR (Non-Af Amer) > 60 Glucose 131 H Calcium 9.3 Impressions: Lumbar Spine MRI 10/04/17 16:21 IMPRESSION: 1. FAIRLY EXTENSIVE ABNORMAL MARROW SIGNAL AND MARROW REPLACEMENT IN THE UPPER SACRUM MOST CONSISTENT WITH METASTATIC INVOLVEMENT. 2. MULTILEVEL CHRONIC DEGENERATIVE CHANGES IN THE LUMBAR SPINE DESCRIBED. Abdomen/Pelvis CT 10/04/17 19:35 IMPRESSION: 1. CORTICAL SCARRING IN THE KIDNEYS. NONOBSTRUCTING CALYCEAL CALCULUS IN THE RIGHT KIDNEY. 2. LOW-ATTENUATION LESION IN THE SPLEEN MOST LIKELY DUE TO A HEMANGIOMA. METASTATIC LESION WOULD BE LESS COMMON BUT NOT EXCLUDED. 3. FINDINGS IN THE LUMBAR SPINE AND SACRUM EVALUATED WITH SEPARATE MRI. 4. NO OTHER SIGNIFICANT FINDINGS IN THE ABDOMEN OR PELVIS. Chest CT 10/04/17 19:35 IMPRESSION: NORMAL CT OF THE CHEST WITH IV CONTRAST. Soft Tissue Neck CT 10/04/17 19:35 IMPRESSION: ESSENTIALLY NO THYROID TISSUE VISUALIZED, EITHER MARKEDLY ATROPHIC OR SURGICALLY ABSENT. NO OTHER SIGNIFICANT FINDING IN THE SOFT TISSUES OF THE NECK. Body Scan Nuclear Medicine 10/05/17 00:00 IMPRESSION: Increased activity in the sacrum worrisome for insufficiency fracture. Pelvis MRI 10/07/17 00:00 IMPRESSION: ABNORMAL APPEARANCE OF THE UPPER SACRUM DESCRIBED. NO CHANGE COMPARED TO THE PREVIOUS LUMBAR MRI ON 10/04/2017. STRESS FRACTURE IS POSSIBLE BUT METASTASIS NEEDS TO BE CONSIDERED WELL. Chest X-Ray 10/09/17 00:00 IMPRESSION: Moderate cardiomegaly. Otherwise unremarkable study Extremity Ultrasound 10/09/17 00:00 IMPRESSION: No discrete left upper thigh/ greater trochanter region mass is identified at ultrasound Fluoroscopy 10/13/17 00:00 IMPRESSION: Intra procedural imaging and fluoro Sacrum and Coccyx X-Ray 10/13/17 00:00 IMPRESSION: Intra procedural imaging and fluoro Transfer Plan - Disposition Transfer Plan: She will be transferred to subacute rehabilitation today in stable condition - Time Spent with Patient Time spent with patient: Greater than 30 Minutes Qualifiers - * PATIENT BEING DISCHARGED WITH ANY OF THE FOLLOWING DIAGNOSIS: No Plan Time Spent: Greater than 30 Minutes
[2017-10-23] MEDS: ENOXAPARIN SODIUM INJ 40 MG/0.4 ML DISP.SYRIN SUBCUT SCH (09:39)
[2017-10-23] MEDS: QUETIAPINE FUMARATE 25 MG TABLET PO SCH ×2 (09:39→23:46)
[2017-10-23] MEDS: CLONIDINE HCL 0.2 MG TABLET PO SCH ×2 (09:39→23:46)
[2017-10-23] MEDS: LACTULOSE SYRUP 20 GM/30 ML UDCUP PO SCH ×2 (09:40→23:51)
[2017-10-23] MEDS: DOCUSATE SODIUM 100 MG CAPSULE PO SCH ×2 (09:51→18:14)
[2017-10-23] MEDS: BISACODYL 5 MG TABEC PO SCH ×2 (09:51→18:14)
[2017-10-23] MEDS: ASPIRIN 81 MG TABLET, CHEWABLE PO SCH (18:14)
[2017-10-23] MEDS: METOPROLOL TARTRATE 100 MG TABLET PO SCH (18:15)
[2017-10-23] MEDS: AMLODIPINE BESYLATE 10 MG TABLET PO SCH (18:15)
[2017-10-23] MEDS: ATORVASTATIN CALCIUM 10 MG TABLET PO SCH (23:46)
[2017-10-23] MEDS: INSULIN LISPRO 100 UNIT/ML 3 ML VIAL SUBCUT PRN (23:47)
[2017-10-24] MEDS: GABAPENTIN 400 MG CAPSULE PO SCH ×3 (06:49→22:07)
[2017-10-24] MEDS: LANSOPRAZOLE 15 MG TAB.RAP.DR PO SCH (06:49)
[2017-10-24] MEDS: LEVOTHYROXINE SODIUM 0.025 MG TABLET PO SCH (06:50)
[2017-10-24] MEDS: OXYCODONE HCL IR 5 MG TABLET PO PRN ×3 (06:50→18:12)
[2017-10-24] MEDS: LEVOTHYROXINE SODIUM 0.112 MG TABLET PO SCH (06:50)
[2017-10-24] MEDS: QUETIAPINE FUMARATE 25 MG TABLET PO SCH ×2 (09:46→22:08)
[2017-10-24] MEDS: CLONIDINE HCL 0.2 MG TABLET PO SCH ×2 (09:46→22:08)
[2017-10-24] MEDS: BISACODYL 5 MG TABEC PO SCH ×2 (09:47→18:06)
[2017-10-24] MEDS: DOCUSATE SODIUM 100 MG CAPSULE PO SCH ×2 (09:47→18:05)
[2017-10-24] MEDS: ENOXAPARIN SODIUM INJ 40 MG/0.4 ML DISP.SYRIN SUBCUT SCH (09:47)
[2017-10-24] MEDS: LACTULOSE SYRUP 20 GM/30 ML UDCUP PO SCH ×2 (09:57→22:02)
[2017-10-24] MEDS: INSULIN LISPRO 100 UNIT/ML 3 ML VIAL SUBCUT PRN ×2 (14:05→22:33)
[2017-10-24] MEDS: METOPROLOL TARTRATE 100 MG TABLET PO SCH (18:05)
[2017-10-24] MEDS: ASPIRIN 81 MG TABLET, CHEWABLE PO SCH (18:05)
[2017-10-24] MEDS: AMLODIPINE BESYLATE 10 MG TABLET PO SCH (18:06)
--- NOTE | 2017-10-24 18:12 | PDOC PROGRESS REPORT ---
Subjective Progress Note for:: 10/24/17 Subjective:: Yesterday was going to be transferred to subacute rehabilitation and I discharged her. The patient subsequently refused her discharge. Later I found out that her skilled facility was having trouble with her insurance due to an outstanding old workman's comp claim in the distant past. The patient refused discharge yesterday because she states she is having ongoing back pain and the kyphoplasty did not work and she requested orthopedic evaluation. She was told yesterday that there really was not much for orthopedic surgery to do and I recommended getting pain management come back. Pain management came back last night and the patient refused to have any of her medications adjusted. She was offered an epidural steroid injection as an outpatient which she is thinking about. Today when I went to see her she is resting in the bed. She states she is just quite discouraged because her pain is actually worse than it was before she had the procedure. I spoke at length to her [id number] on the phone. It is quite apparent that we are not going to be able to go to rehabilitation until they get her insurance issues worked out and the discharge planners are working on it. Her discharge has been canceled. I spent quite some time discussing the whole situation with them and they are quite insistent that they get an evaluation for a second opinion from orthopedic surgery. I am consulting Dr. Putnam today. Patient has had 2 MRIs performed. She has had a quite extensive evaluation here in the hospital. The family wants her back reimaged. I am going to repeat a CT scan of the patient's lumbar spine today at the request of the family to see if there is been any worsening of her condition or any changes. CT scan of the patient's lumbar spine with and without contrast for further evaluation after a long discussion they are feeling much better. I do believe they will feel better after they talk to orthopedic surgery. I am going to get a today. Other than the ongoing pain the patient denies fever chills. No chest pain, shortness of breath or cough. No nausea vomiting or diarrhea. No urinary complaints. The patient does complain of rather significant pain in her back that shoots down her legs. Reason For Visit: INTRACTABLE BACK PAIN Physical Exam Vital Signs: Temp Pulse Resp BP Pulse Ox 98.2 F 87 17 131/64 H 92 10/24/17 15:59 10/24/17 15:59 10/24/17 15:59 10/24/17 15:59 10/24/17 15:59 Intake & Output 10/23/17 10/24/17 10/25/17 06:59 06:59 06:59 Intake Total 1378 1300 550 Balance 1378 1300 550 Weight 90.4 kg General appearance: PRESENT: no acute distress, obese, well-developed, well- nourished Head exam: PRESENT: atraumatic, normocephalic Eye exam: PRESENT: conjunctiva pink, EOMI, PERRLA. ABSENT: scleral icterus Mouth exam: PRESENT: moist, tongue midline Neck exam: ABSENT: carotid bruit, JVD, lymphadenopathy, thyromegaly Respiratory exam: PRESENT: clear to auscultation honey. ABSENT: rales, rhonchi, wheezes Cardiovascular exam: PRESENT: RRR. ABSENT: diastolic murmur, rubs, systolic murmur GI/Abdominal exam: PRESENT: normal bowel sounds, soft. ABSENT: distended, guarding, mass, organolmegaly, rebound, tenderness Rectal exam: PRESENT: deferred Extremities exam: PRESENT: full ROM. ABSENT: calf tenderness, clubbing, pedal edema Neurological exam: PRESENT: alert, awake, oriented to person, oriented to place , oriented to time, oriented to situation, CN II-XII grossly intact. ABSENT: motor sensory deficit Psychiatric exam: PRESENT: appropriate affect, normal mood. ABSENT: homicidal ideation, suicidal ideation Skin exam: PRESENT: dry, intact, warm. ABSENT: cyanosis, rash Results Laboratory Results: 10/23/17 07:21 10/23/17 07:21 Impressions: Lumbar Spine MRI 10/04/17 16:21 IMPRESSION: 1. FAIRLY EXTENSIVE ABNORMAL MARROW SIGNAL AND MARROW REPLACEMENT IN THE UPPER SACRUM MOST CONSISTENT WITH METASTATIC INVOLVEMENT. 2. MULTILEVEL CHRONIC DEGENERATIVE CHANGES IN THE LUMBAR SPINE DESCRIBED. Abdomen/Pelvis CT 10/04/17 19:35 IMPRESSION: 1. CORTICAL SCARRING IN THE KIDNEYS. NONOBSTRUCTING CALYCEAL CALCULUS IN THE RIGHT KIDNEY. 2. LOW-ATTENUATION LESION IN THE SPLEEN MOST LIKELY DUE TO A HEMANGIOMA. METASTATIC LESION WOULD BE LESS COMMON BUT NOT EXCLUDED. 3. FINDINGS IN THE LUMBAR SPINE AND SACRUM EVALUATED WITH SEPARATE MRI. 4. NO OTHER SIGNIFICANT FINDINGS IN THE ABDOMEN OR PELVIS. Chest CT 10/04/17 19:35 IMPRESSION: NORMAL CT OF THE CHEST WITH IV CONTRAST. Soft Tissue Neck CT 10/04/17 19:35 IMPRESSION: ESSENTIALLY NO THYROID TISSUE VISUALIZED, EITHER MARKEDLY ATROPHIC OR SURGICALLY ABSENT. NO OTHER SIGNIFICANT FINDING IN THE SOFT TISSUES OF THE NECK. Body Scan Nuclear Medicine 10/05/17 00:00 IMPRESSION: Increased activity in the sacrum worrisome for insufficiency fracture. Pelvis MRI 10/07/17 00:00 IMPRESSION: ABNORMAL APPEARANCE OF THE UPPER SACRUM DESCRIBED. NO CHANGE COMPARED TO THE PREVIOUS LUMBAR MRI ON 10/04/2017. STRESS FRACTURE IS POSSIBLE BUT METASTASIS NEEDS TO BE CONSIDERED WELL. Chest X-Ray 10/09/17 00:00 IMPRESSION: Moderate cardiomegaly. Otherwise unremarkable study Extremity Ultrasound 10/09/17 00:00 IMPRESSION: No discrete left upper thigh/ greater trochanter region mass is identified at ultrasound Fluoroscopy 10/13/17 00:00 IMPRESSION: Intra procedural imaging and fluoro Sacrum and Coccyx X-Ray 10/13/17 00:00 IMPRESSION: Intra procedural imaging and fluoro Assessment & Plan - Diagnosis (1) Intractable back pain Is this a current diagnosis for this admission?: Yes Plan: The patient continues to have uncontrolled pain. At this point the compression fracture that she has had the kyphoplasty on seems to be the only source. I am going to reimage her back with a CT scan of the pelvis today for further evaluation. At the insistence of the patient's family I am consulting orthopedic surgery for their opinion. (2) Urinary tract infection Is this a current diagnosis for this admission?: Yes Plan: Resolved. She is completed a course of therapy (3) Sacral fracture, closed Is this a current diagnosis for this admission?: Yes Plan: Status post kyphoplasty. She has had no relief in her pain is getting worse. Again we are going to repeat imaging studies this evening. (4) Mass of left thigh Is this a current diagnosis for this admission?: Yes Plan: Biopsies have been negative. At this point we do not have a clear-cut source for malignancy. She has been followed closely by the oncology service. (5) Hypertension Qualifiers: Hypertension type: essential hypertension Qualified Code(s): I10 - Essential (primary) hypertension Is this a current diagnosis for this admission?: Yes Plan: Stable (6) Diabetes mellitus Qualifiers: Diabetes mellitus type: type 2 Is this a current diagnosis for this admission?: Yes Plan: Stable on current regimen (7) Anemia Qualifiers: Anemia type: unspecified type Qualified Code(s): D64.9 - Anemia, unspecified Is this a current diagnosis for this admission?: Yes Plan: Secondary to hemodilution. Stable (8) Hyperkalemia Is this a current diagnosis for this admission?: Yes Plan: Resolved. 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 Biopsy and lab studies do not indicate that she has myeloma. Oncology has followed her. - Time Time Spent with patient: 25-34 minutes - Inpatient Certification Medical Necessity: Other - Inpatient hospitalization remains necessary for disposition. Apparently there is some problem with the patient's insurance. In the meantime she is having increased pain. We are going to reimage her spine and get orthopedics to see the patient. Timing of disposition will be determined by when a bed is found. I do not believe this workup needs to keep her in the hospital any further.
--- NOTE | 2017-10-24 21:33 | RADIOLOGY REPORT (SQ) ---
EXAM DESCRIPTION: CT PELVIS WITH COMPLETED DATE/TIME: 10/24/2017 9:21 pm REASON FOR STUDY: pain, sacral lesion, r/o abscess COMPARISON: MRI from 10/07/2014. TECHNIQUE: CT scan of the pelvis performed without intravenous or oral contrast. Images reviewed wi th soft tissue and bone windows. Reconstructed coronal and sagittal MPR images reviewed. All images stored on PACS. All CT scanners at this facility use dose modulation, iterative reconstruction, and/or weight based d osing when appropriate to reduce radiation dose to as low as reasonably achievable (ALARA). [facility]: Dose Right [facility]: CareDose [facility]: Dose Right [facility]: Teradose 4D [facility]: Smart FND RADIATION DOSE: CT Rad equipment meets quality standard of care and radiation dose reduction techniq ues were employed. CTDIvol: 18.9 - 20.0 mGy. DLP: 1179 mGy-cm. mGy. LIMITATIONS: None. FINDINGS: PELVIC BONES: No acute fracture. No worrisome bone lesions. VISUALIZED SPINE: Mottled appearance of the sacrum with areas of change cortical disruption. Patient is now status post sacral plasty. HIP(S): No acute fracture or dislocation. No worrisome bone lesions. PELVIC SOFT TISSUES: No significant findings. EXTRAPELVIC SOFT TISSUES: No significant findings. OTHER: No other significant finding. IMPRESSION: NO DRAINABLE FLUID COLLECTION/ABSCESS IDENTIFIED. SMALL APPEARANCE OF THE SACRUM WITH AREAS OF CORTICAL DISRUPTION SEEN ON PRIOR IMAGING. AGAIN DIF FERENTIAL INCLUDES INSUFFICIENCY FRACTURE, OSTEOMYELITIS, AND MALIGNANCY. INTERVAL SACRAL PLASTY CHANGE. TECHNICAL DOCUMENTATION: JOB ID: [id number] Quality ID # [id number]: Final reports with documentation of one or more dose reduction techniques (e.g., Au tomated exposure control, adjustment of the mA and/or kV according to patient size, use of iterative reconstruction technique) 2010 [employer]- All Rights Reserved Reading location - IP/workstation name: [email or web address]
[2017-10-24] MEDS: ATORVASTATIN CALCIUM 10 MG TABLET PO SCH (22:07)
[2017-10-25] MEDS: OXYCODONE HCL IR 5 MG TABLET PO PRN ×2 (03:26→08:50)
[2017-10-25] MEDS: LEVOTHYROXINE SODIUM 0.112 MG TABLET PO SCH (06:35)
[2017-10-25] MEDS: GABAPENTIN 400 MG CAPSULE PO SCH ×3 (06:35→22:55)
[2017-10-25] MEDS: LEVOTHYROXINE SODIUM 0.025 MG TABLET PO SCH (06:35)
[2017-10-25] MEDS: LANSOPRAZOLE 15 MG TAB.RAP.DR PO SCH (06:36)
--- NOTE | 2017-10-25 10:06 | PDOC PROGRESS REPORT ---
Subjective Progress Note for:: 10/25/17 Subjective:: The patient is sitting up in a chair. The results of her CT scan of her lumbar spine were reviewed. She still is continuing to have lower extremity pain. I spoke to Dr. Putnam who plans to see the patient this afternoon. He is concerned about this left thigh mass. The records were reviewed. Apparently when they went to biopsy the area with ultrasound they did not find a mass and the procedure was canceled. Since that time they have been focusing looking for malignancy in other ways. She had a biopsy with her kyphoplasty which still has tests that are pending. When I went to talk to her she states that this lesion popped up about Easter. She states that it is somewhat hard and nonmobile. She states that it really is not painful unless she lies on her side on it. She thought initially it was just her hip from losing lots of weight but it is not present on the other side. Overall she is doing well except for the pain. She denies fever or chills. No chest pain, shortness of breath or cough. No nausea or vomiting. She is having normal bowel movements. She is voiding without difficulty. Reason For Visit: INTRACTABLE BACK PAIN Physical Exam Vital Signs: Temp Pulse Resp BP Pulse Ox 98.3 F 79 20 130/57 H 95 10/25/17 08:17 10/25/17 08:17 10/25/17 08:17 10/25/17 08:17 10/25/17 08:17 Intake & Output 10/24/17 10/25/17 10/26/17 06:59 06:59 06:59 Intake Total 1300 1710 Balance 1300 1710 Weight 90 kg General appearance: PRESENT: no acute distress, obese, well-developed, well- nourished Head exam: PRESENT: atraumatic, normocephalic Mouth exam: PRESENT: moist, tongue midline Respiratory exam: PRESENT: clear to auscultation honey. ABSENT: rales, rhonchi, wheezes Cardiovascular exam: PRESENT: RRR. ABSENT: diastolic murmur, rubs, systolic murmur GI/Abdominal exam: PRESENT: normal bowel sounds, soft. ABSENT: distended, guarding, mass, organolmegaly, rebound, tenderness Rectal exam: PRESENT: deferred Extremities exam: PRESENT: other - She does have a large firm masslike area over the left upper thigh/hip. It is firm and nonmobile. It is not tender to palpation Musculoskeletal exam: PRESENT: tenderness - In the lumbar and sacral spine. ABSENT: full ROM Neurological exam: PRESENT: alert, awake, oriented to person, oriented to place , oriented to time, oriented to situation, CN II-XII grossly intact. ABSENT: motor sensory deficit Psychiatric exam: PRESENT: appropriate affect, normal mood. ABSENT: homicidal ideation, suicidal ideation Skin exam: PRESENT: dry, intact, warm. ABSENT: cyanosis, rash Results Laboratory Results: 10/23/17 07:21 10/23/17 07:21 Impressions: Lumbar Spine MRI 10/04/17 16:21 IMPRESSION: 1. FAIRLY EXTENSIVE ABNORMAL MARROW SIGNAL AND MARROW REPLACEMENT IN THE UPPER SACRUM MOST CONSISTENT WITH METASTATIC INVOLVEMENT. 2. MULTILEVEL CHRONIC DEGENERATIVE CHANGES IN THE LUMBAR SPINE DESCRIBED. Abdomen/Pelvis CT 10/04/17 19:35 IMPRESSION: 1. CORTICAL SCARRING IN THE KIDNEYS. NONOBSTRUCTING CALYCEAL CALCULUS IN THE RIGHT KIDNEY. 2. LOW-ATTENUATION LESION IN THE SPLEEN MOST LIKELY DUE TO A HEMANGIOMA. METASTATIC LESION WOULD BE LESS COMMON BUT NOT EXCLUDED. 3. FINDINGS IN THE LUMBAR SPINE AND SACRUM EVALUATED WITH SEPARATE MRI. 4. NO OTHER SIGNIFICANT FINDINGS IN THE ABDOMEN OR PELVIS. Chest CT 10/04/17 19:35 IMPRESSION: NORMAL CT OF THE CHEST WITH IV CONTRAST. Soft Tissue Neck CT 10/04/17 19:35 IMPRESSION: ESSENTIALLY NO THYROID TISSUE VISUALIZED, EITHER MARKEDLY ATROPHIC OR SURGICALLY ABSENT. NO OTHER SIGNIFICANT FINDING IN THE SOFT TISSUES OF THE NECK. Body Scan Nuclear Medicine 10/05/17 00:00 IMPRESSION: Increased activity in the sacrum worrisome for insufficiency fracture. Pelvis MRI 10/07/17 00:00 IMPRESSION: ABNORMAL APPEARANCE OF THE UPPER SACRUM DESCRIBED. NO CHANGE COMPARED TO THE PREVIOUS LUMBAR MRI ON 10/04/2017. STRESS FRACTURE IS POSSIBLE BUT METASTASIS NEEDS TO BE CONSIDERED WELL. Chest X-Ray 10/09/17 00:00 IMPRESSION: Moderate cardiomegaly. Otherwise unremarkable study Extremity Ultrasound 10/09/17 00:00 IMPRESSION: No discrete left upper thigh/ greater trochanter region mass is identified at ultrasound Fluoroscopy 10/13/17 00:00 IMPRESSION: Intra procedural imaging and fluoro Sacrum and Coccyx X-Ray 10/13/17 00:00 IMPRESSION: Intra procedural imaging and fluoro Pelvis CT 10/24/17 00:00 IMPRESSION: NO DRAINABLE FLUID COLLECTION/ABSCESS IDENTIFIED. SMALL APPEARANCE OF THE SACRUM WITH AREAS OF CORTICAL DISRUPTION SEEN ON PRIOR IMAGING. AGAIN DIFFERENTIAL INCLUDES INSUFFICIENCY FRACTURE, OSTEOMYELITIS, AND MALIGNANCY. INTERVAL SACRAL PLASTY CHANGE. Assessment & Plan - Diagnosis (1) Intractable back pain Is this a current diagnosis for this admission?: Yes Plan: The CT scan of her spine did not reveal pelvis did not reveal any sort of abscess. There is areas in the sacrum of cortical disruption is seen on prior imaging. The differential includes an insufficiency fracture, osteomyelitis or malignancy. There is interval sacral plasty changes from her previous procedure. Overall we are awaiting recommendations from Dr. Putnam. Again I have encouraged the patient to work with physical therapy and we will try to adjust her pain medications of her pain worsens. She has been seen by pain management. Of note her whole picture is still concerning for underlying malignancy (2) Urinary tract infection Is this a current diagnosis for this admission?: Yes Plan: Resolved. She has completed a course of therapy. Her urine culture was negative (3) Sacral fracture, closed Is this a current diagnosis for this admission?: Yes Plan: Status post kyphoplasty. She has had no relief in her pain is getting worse. Imaging studies are about the same. Dr. Putnam will see the patient this afternoon and I appreciate his assistance. (4) Mass of left thigh Is this a current diagnosis for this admission?: Yes Plan: At the advice of Dr. Putnam I am going to obtain an MRI of her left lower extremity today. (5) Hypertension Qualifiers: Hypertension type: essential hypertension Qualified Code(s): I10 - Essential (primary) hypertension Is this a current diagnosis for this admission?: Yes Plan: Stable (6) Diabetes mellitus Qualifiers: Diabetes mellitus type: type 2 Is this a current diagnosis for this admission?: Yes Plan: Stable on current regimen (7) Anemia Qualifiers: Anemia type: unspecified type Qualified Code(s): D64.9 - Anemia, unspecified Is this a current diagnosis for this admission?: Yes Plan: Secondary to hemodilution and likely an element of chronic disease. Stable (8) Hyperkalemia Is this a current diagnosis for this admission?: Yes Plan: Resolved. 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 Workup is still ongoing. It is suspicious for underlying malignancy but we do not have this confirmed. - Time Time Spent with patient: 25-34 minutes - Inpatient Certification Medical Necessity: Need for Pain Control - Inpatient hospitalization remains necessary. Dr. Putnam would like further evaluation of the patient's hip mass. In the meantime there are issues with her insurance pain for subacute rehabilitation. The discharge planners are working on it., Other
[2017-10-25] MEDS: FENTANYL 100 MCG/HR PATCH.TD72 TD SCH (10:07)
[2017-10-25] MEDS: DOCUSATE SODIUM 100 MG CAPSULE PO SCH ×2 (10:07→17:47)
[2017-10-25] MEDS: BISACODYL 5 MG TABEC PO SCH ×2 (10:07→17:47)
[2017-10-25] MEDS: CLONIDINE HCL 0.2 MG TABLET PO SCH ×2 (10:07→23:02)
[2017-10-25] MEDS: FENTANYL 25 MCG/HR PATCH.TD72 TD SCH (10:07)
[2017-10-25] MEDS: ENOXAPARIN SODIUM INJ 40 MG/0.4 ML DISP.SYRIN SUBCUT SCH (10:07)
[2017-10-25] MEDS: QUETIAPINE FUMARATE 25 MG TABLET PO SCH ×2 (10:07→22:54)
[2017-10-25] MEDS ORDERED: LORAZEPAM INJ 2 MG/1 ML VIAL ONE (10:53)
--- NOTE | 2017-10-25 12:08 | PDOC CONSULTATION ---
Consultation Consult Date: 10/25/17 Consult reason:: Pelvic pain History of Present Illness Admission Date/PCP: 10/04/17 22:26 KATHY LOPEZ MD History of Present Illness: BELLO DIAZ is a 72 year old female [employer] who presented initially with pelvic pain without traumatic antecedent beginning about 2017. Since that time the pain has become much worse and the patient has undergone a thorough evaluation with the identification of a potential proximal sacral lesion. This has been biopsied and a sacral plasty performed. Ultimate pathologic diagnosis is notable for numerous CD20 and CD3 positive cells. Ultimate diagnosis has been deferred pending outside evaluation. The patient at this point is awaiting transfer to rehab rehab. She is quite frustrated with the ongoing pain as well as with an absence of a definitive diagnosis. Past Medical History Cardiac Medical History: Reports: Myocardial Infarction, Hypertension Pulmonary Medical History: Reports: Pneumonia Endocrine Medical History: Reports: Diabetes Mellitus Type 2, Hypothyroidism GI Medical History: Reports: Gastroesophageal Reflux Disease Musculoskeltal Medical History: Reports: Arthritis Past Surgical History Past Surgical History: Reports: Cholecystectomy, Orthopedic Surgery - back surgery, Other - KENISHA/L oopherectomy, bladder sling, b/l hand surgery, R knee replacement Social History Information Source: Patient, [facility] Records Smoking Status: Never Smoker Frequency of Alcohol Use: None Drugs: None - Advance Directive Resuscitation Status: Full Code Family History Family History: Reviewed & Not Pertinent Parental Family History Reviewed: No Children Family History Reviewed: No Sibling(s) Family History Reviewed.: No Medication/Allergy Home Medications: Amlodipine Besylate [Norvasc 10 mg Tablet] 10 mg PO DAILY 10/05/17 Aspirin 81 mg PO DAILY 10/05/17 Clonidine HCl [Catapres 0.2 mg Tablet] 0.2 mg PO Q12 10/05/17 Cyclobenzaprine HCl [Flexeril 10 mg Tablet] 10 mg PO TIDP PRN 10/05/17 Ergocalciferol (Vitamin D2) [Vitamin D2] 50,000 unit PO .QWEEKLY 10/05/17 Gabapentin 400 mg PO Q6 10/05/17 Glimepiride 4 mg PO DAILY 10/05/17 Levothyroxine Sodium [Levo-T] 137 mcg PO DAILY 10/05/17 Meloxicam [Mobic] 7.5 mg PO QAM 10/05/17 Metformin HCl [Glucophage 500 mg Tablet] 500 mg PO BIDBL 10/05/17 Metoprolol Tartrate [Lopressor 100 mg Tablet] 100 mg PO DAILY 10/05/17 Pravastatin Sodium [Pravachol] 40 mg PO DAILY 10/05/17 Quetiapine Fumarate 25 mg PO DAILY 10/05/17 Metformin HCl [Glucophage 500 mg Tablet] 1,000 mg PO QHS 10/06/17 Fentanyl [Duragesic 100 Mcg/Hr Transdermal Patch] 1 each TD Q3DAYS 30 Days #10 patch.td72 10/22/17 Fentanyl [Duragesic 25 mcg/hr Transdermal Patch] 1 each TD Q3DAYS 10 Days #10 patch.td72 10/22/17 Gabapentin [Neurontin 400 mg Capsule] 400 mg PO Q8 30 Days #90 capsule 10/22/17 Lactulose [Cephulac Syrup 20 gm/30 ml Udcup] 20 gm PO Q12 30 Days #450 ml Oxycodone HCl [Oxy-Ir 5 mg Tablet] 5 mg PO Q4HP PRN 10 Days #30 tablet 10/22/17 Quetiapine Fumarate [Seroquel 25 mg Tablet] 50 mg PO Q12 30 Days #60 tablet 08/06 Allergies/Adverse Reactions: No Known Allergies Allergy (Unverified 10/04/17 15:35) Review of Systems All systems: as per PMH Physical Exam Vital Signs: Temp Pulse Resp BP Pulse Ox 36.8 C 79 20 130/57 H 95 10/25/17 08:17 10/25/17 08:17 10/25/17 08:17 10/25/17 08:17 10/25/17 08:17 Intake & Output 10/24/17 10/25/17 10/26/17 06:59 06:59 06:59 Intake Total 1300 1710 Balance 1300 1710 Weight 90 kg Physical Exam: The patient is an overweight middle-aged white female lying in bed. She is alert oriented and appropriate. She is somewhat discouraged. General appearance: PRESENT: mild distress Head exam: PRESENT: normocephalic Respiratory exam: PRESENT: unlabored Cardiovascular exam: PRESENT: RRR Pulses: PRESENT: +1 pedal pulses bilateral Vascular exam: PRESENT: normal capillary refill GI/Abdominal exam: PRESENT: soft Rectal exam: PRESENT: deferred Extremities exam: PRESENT: other - There is a 15 cm soft tissue mass overlying the left greater trochanter which was ill-demarcated, soft, and nontender. It is mobile with respect to the underlying bony structure. See mobile with respect to the overlying skin. Neurological exam: PRESENT: alert, awake, oriented to person, oriented to place , oriented to time, oriented to situation. ABSENT: motor sensory deficit Psychiatric exam: PRESENT: appropriate affect, normal mood. ABSENT: homicidal ideation, suicidal ideation Skin exam: PRESENT: dry, intact, warm. ABSENT: cyanosis, rash Results Laboratory Results: 10/23/17 07:21 10/23/17 07:21 Impressions: Lumbar Spine MRI 10/04/17 16:21 IMPRESSION: 1. FAIRLY EXTENSIVE ABNORMAL MARROW SIGNAL AND MARROW REPLACEMENT IN THE UPPER SACRUM MOST CONSISTENT WITH METASTATIC INVOLVEMENT. 2. MULTILEVEL CHRONIC DEGENERATIVE CHANGES IN THE LUMBAR SPINE DESCRIBED. Abdomen/Pelvis CT 10/04/17 19:35 IMPRESSION: 1. CORTICAL SCARRING IN THE KIDNEYS. NONOBSTRUCTING CALYCEAL CALCULUS IN THE RIGHT KIDNEY. 2. LOW-ATTENUATION LESION IN THE SPLEEN MOST LIKELY DUE TO A HEMANGIOMA. METASTATIC LESION WOULD BE LESS COMMON BUT NOT EXCLUDED. 3. FINDINGS IN THE LUMBAR SPINE AND SACRUM EVALUATED WITH SEPARATE MRI. 4. NO OTHER SIGNIFICANT FINDINGS IN THE ABDOMEN OR PELVIS. Chest CT 10/04/17 19:35 IMPRESSION: NORMAL CT OF THE CHEST WITH IV CONTRAST. Soft Tissue Neck CT 10/04/17 19:35 IMPRESSION: ESSENTIALLY NO THYROID TISSUE VISUALIZED, EITHER MARKEDLY ATROPHIC OR SURGICALLY ABSENT. NO OTHER SIGNIFICANT FINDING IN THE SOFT TISSUES OF THE NECK. Body Scan Nuclear Medicine 10/05/17 00:00 IMPRESSION: Increased activity in the sacrum worrisome for insufficiency fracture. Pelvis MRI 10/07/17 00:00 IMPRESSION: ABNORMAL APPEARANCE OF THE UPPER SACRUM DESCRIBED. NO CHANGE COMPARED TO THE PREVIOUS LUMBAR MRI ON 10/04/2017. STRESS FRACTURE IS POSSIBLE BUT METASTASIS NEEDS TO BE CONSIDERED WELL. Chest X-Ray 10/09/17 00:00 IMPRESSION: Moderate cardiomegaly. Otherwise unremarkable study Extremity Ultrasound 10/09/17 00:00 IMPRESSION: No discrete left upper thigh/ greater trochanter region mass is identified at ultrasound Fluoroscopy 10/13/17 00:00 IMPRESSION: Intra procedural imaging and fluoro Sacrum and Coccyx X-Ray 10/13/17 00:00 IMPRESSION: Intra procedural imaging and fluoro Pelvis CT 10/24/17 00:00 IMPRESSION: NO DRAINABLE FLUID COLLECTION/ABSCESS IDENTIFIED. SMALL APPEARANCE OF THE SACRUM WITH AREAS OF CORTICAL DISRUPTION SEEN ON PRIOR IMAGING. AGAIN DIFFERENTIAL INCLUDES INSUFFICIENCY FRACTURE, OSTEOMYELITIS, AND MALIGNANCY. INTERVAL SACRAL PLASTY CHANGE. Status: Imported from PACS Assessment & Plan - Diagnosis (1) Sacral insufficiency fracture with delayed healing Is this a current diagnosis for this admission?: Yes Plan: 72-year-old white female with radiographic evidence of a sacral insufficiency fracture, a soft tissue mass over the left greater trochanter, a sacral biopsy which may suggest an underlying malignancy who is in significant pain and is somewhat frustrated with the lack of a specific diagnosis. At this point I do not think that there are any specific interventions necessary for her musculoskeletal condition. If a malignant diagnosis is rendered from her current pathology which was out for review at [facility], consideration could be given to radiation therapy. Her pain control is been discussed with Dr. Odom who will approach the patient about potential injections for temporary pain relief. I do not think that the soft tissue mass is contributing to the patient's sacral pathology. I suspect that this is a subcutaneous lipoma and is unrelated to her current situation. - Time Time Spent: 50 to 70 Minutes Anticipated discharge: SNF Within: Other
[2017-10-25] MEDS: LACTULOSE SYRUP 20 GM/30 ML UDCUP PO SCH ×2 (13:56→23:00)
[2017-10-25] MEDS: AMLODIPINE BESYLATE 10 MG TABLET PO SCH (17:47)
[2017-10-25] MEDS: ASPIRIN 81 MG TABLET, CHEWABLE PO SCH (17:47)
[2017-10-25] MEDS: METOPROLOL TARTRATE 100 MG TABLET PO SCH (17:48)
[2017-10-25] MEDS: HYDROMORPHONE HCL 2 MG TABLET PO PRN (17:48)
--- NOTE | 2017-10-25 18:00 | PROGRESS NOTE E ---
Progress Note NAME: BELLO DIAZ : 1945 AGE: 72Y DATE: 10/23/2017 ROOM: 218 SUBJECTIVE: Patient complains of chronic lower back pain as well as newer onset sacral pain. . The patient continues to have severe pain status post sacroplasty for insufficiency fracture versus malignancy. The results are still pending. She said the sacroplasty did not help relieve her pain at all. She still has a lot of lower back pain and sacral pain. She has a lot of pain walking. It is decreased if she is sitting down but walking to the bathroom and back is very, very painful for her. SHe states her medications are helfpul but do not take 100% of her pain away. She denies s/e. OBJECTIVE: VITAL SIGNS: Stable. GENERAL: The patient appears stated age, is awake, alert and oriented to person, place and time. She does not appear to be in acute distress. She is sitting upright and eating dinner and is pleasant and conversational when I arrive. She is able to transfer herself from lying down to seated with minimal discomfort but standing is painful. SKIN: Warm and dry. No rashes. She is not diaphoretic. HEENT: Normocephalic, atraumatic. Neck is supple, nontender. CARDIOVASCULAR: Radial pulses are 2+ bilaterally. LUNGS: Respirations are nonlabored. MUSCULOSKELETAL: She is mixer tender in her midline spine and her sacrum. No tenderness over her hip appreciated. EXTREMITIES: Her strength is preserved. ASSESSMENT AND PLAN: ONGOING CHRONIC LOWER BACK PAIN WELL SACRAL PAIN STATUS POST SACROPLASTY WITH POSSIBLE MALIGNANCY, PENDING BIOPSY RESULTS. Reviewed her Lumbar MRI with her which does show she has degenerative disk disease and severe facet arthropathy. We offered a lumbar epidural steroid injection for her which we could do while she is in the hospital or as an outpatient. She declined at this time and would like to consider this for now. She is currently taking fentanyl and oxycodone for pain which does help but does not take it all away. Discussed possible medication changes but she did not want to make any changes today. She said she will continue to think about what we discussed. DICTATING PHYSICIAN: DARCY CLIFTON PA-C [id number] PHY#: [id number] ID: [id number] JOB#: [id number] ACCT: [id number] cc: > MTDD
[2017-10-25] MEDS: INSULIN LISPRO 100 UNIT/ML 3 ML VIAL SUBCUT PRN (18:05)
--- NOTE | 2017-10-25 18:49 | PROGRESS NOTE E ---
Progress Note NAME: BELLO DIAZ : 1945 AGE: 72Y DATE: 10/25/2017 ROOM: 218 SUBJECTIVE: The patient complains of continued lower back pain. The patient has chronic lower back pain and also new onset sacral pain. She underwent a sacroplasty without relief. She continues to complain of a lot of lower back pain. It is improved with rest. If she lies in bed, she has less pain but she has a lot of pain if she stands up or walks for any period of time. She denies any radiating pain in her legs. No numbness, tingling, or weakness. No bowel or bladder incontinence but her continuous pain in her lower back. Ortho was consulted and there really is no surgery recommended so the orthopedist had recommended a intrathecal pump placement and so we asked to talk to her about this. She says her medications are helpful but do not take all of her pain away. She denies any side effects. She states that IV Dilaudid was previously more effective than the PO oxycodone she is currently taking. She denies s/e. OBJECTIVE: VITAL SIGNS: Stable. GENERAL: The patient is a , overweight female who appears stated age and is awake, alert and oriented to person, place and time. She does not appear to be in any acute distress. She was sitting upright when I entered the room. She is conversational and pleasant. She is able to transfer herself from lying down to a seated position and from seated to standing and back down again without overt pain behavior. However, standing and walking are very painful. SKIN: Warm and dry. No rashes. She is not diaphoretic. HEENT: Normocephalic, atraumatic. Extraocular muscles are intact. CARDIOVASCULAR: Radial pulses are 2+ bilaterally. LUNGS: Respirations are nonlabored. MUSCULOSKELETAL: She is very tender to palpation throughout her midline spine and her sacrum. No paravertebral muscle tenderness. She does have a midline scar in her lower back from a prior back surgery. No tenderness over her hips. EXTREMITIES: Strength is preserved. No clonus. ASSESSMENT AND PLAN: ONGOING LOWER BACK PAIN WELL SACRAL PAIN STATUS POST SACROPLASTY WITHOUT RELIEF. She is pending biopsy for possible malignancy. Intrathecal pain pump was recommended by orthopedics. This could be considered in the future but we would recommend more minimally invasive options first. We would also recommend that we have the biopsy results back before we consider inserting a pain pump. We do recommend a trial of a lumbar epidural steroid injection for her severe lower back pain. This was discussed with the patient earlier in the week and she wanted to think about it at that time but she said she is more interested in trying this now. Also discussed this with her [id number] over the phone and she was also interested in going forth with this and so we scheduled a lumbar epidural steroid injection for tomorrow morning at 10:00 a.m. The patient was also willing to trial a medication adjustment today so we will continue the fentanyl patches, stop the oxycodone and trial p.o. Dilaudid to see if she responds better to this medication. The patient was discussed with Dr. Odom. DICTATING PHYSICIAN: DARCY CLIFTON PA-C [id number] PHY#: [id number] ID: [id number] JOB#: [id number] ACCT: [id number] cc: > MTDD
[2017-10-25] MEDS: ATORVASTATIN CALCIUM 10 MG TABLET PO SCH (22:55)
[2017-10-26] MEDS: HYDROMORPHONE HCL 2 MG TABLET PO PRN ×3 (03:30→18:02)
[2017-10-26] MEDS: GABAPENTIN 400 MG CAPSULE PO SCH ×3 (06:25→21:30)
[2017-10-26] MEDS: LEVOTHYROXINE SODIUM 0.112 MG TABLET PO SCH (06:25)
[2017-10-26] MEDS: LEVOTHYROXINE SODIUM 0.025 MG TABLET PO SCH (06:25)
[2017-10-26] MEDS: LANSOPRAZOLE 15 MG TAB.RAP.DR PO SCH (06:26)
[2017-10-26 07:02] LABS: ABSOLUTE BASOPHILS # (AUTO) 0.1 10^3/uL (0.0-0.2); ABSOLUTE EOSINOPHILS # (AUTO) 0.5 10^3/uL (0.0-0.6); ABSOLUTE LYMPHOCYTES (AUTO) 2.6 10^3/uL (0.5-4.7); BASOPHILS % (AUTO) 0.9 % (0-2); EOSINOPHILS % (AUTO) 5.9 % (0-6); HEMATOCRIT 34.9 % (36.0-47.0); HEMOGLOBIN 11.8 g/dL (12.0-15.5); LYMPHOCYTES % (AUTO) 31.7 % (13-45); MEAN CORPUSCULAR HGB CONC 33.8 g/dL (32.0-36.0); MEAN CORPUSCULAR VOLUME 89 fl (80-97); MONOCYTES % (AUTO) 12.3 % (3-13); PLATELET COUNT 482 10^3/uL (150-450); RED BLOOD COUNT 3.94 10^6/uL (3.72-5.28); RED CELL DISTRIBUTION WIDTH 13.6 % (11.5-14.0); SEGMENTED NEUTROPHILS % (AUTO) 49.2 % (42-78); TOTAL CELLS COUNTED % (AUTO) 100 %; WHITE BLOOD COUNT 8.1 10^3/uL (4.0-10.5)
[2017-10-26 07:03] LABS: ANION GAP 10 (5-19); BLOOD UREA NITROGEN 15 mg/dL (7-20); CALCIUM 9.2 mg/dL (8.4-10.2); CARBON DIOXIDE 29 mmol/L (22-30); CHLORIDE 101 mmol/L (98-107); GLUCOSE 129 mg/dL (75-110); POTASSIUM 4.5 mmol/L (3.6-5.0); SODIUM 139.9 mmol/L (137-145)
[2017-10-26] MEDS ORDERED: TRIAMCINOLONE ACETONIDE INJ 40 MG/1 ML VIAL INJ PRN (09:14)
[2017-10-26] MEDS ORDERED: FENTANYL CITRATE INJ/PF 100 MCG/2 ML AMPUL ONE (09:16)
[2017-10-26] MEDS ORDERED: MIDAZOLAM HCL INJ 5 MG/1 ML VIAL ONE (09:16)
[2017-10-26] MEDS ORDERED: FENTANYL 100 MCG/HR PATCH.TD72 TD SCH (10:00)
[2017-10-26] MEDS ORDERED: FENTANYL 25 MCG/HR PATCH.TD72 TD SCH (10:00)
--- NOTE | 2017-10-26 11:09 | OPERATIVE REPORT E ---
Operative Report NAME: BELLO DIAZ : 1945 AGE: 72Y DATE OF SURGERY: 10/26/2017 ROOM: 218 PREOPERATIVE DIAGNOSIS: Lumbar radiculopathy. POSTOPERATIVE DIAGNOSIS: Lumbar radiculopathy. OPERATION: Translaminar epidural steroid injection with a right paramedian approach at L5-S1. SURGEON: RABIA KWOK M.D. ANESTHESIA: MAC using 2 mg of Versed and 100 mcg of fentanyl. COMPLICATIONS: None. PROCEDURE IN DETAIL: After obtaining informed consent and advising the patient of the risks and benefits including serious neurological injury, bleeding, infection, allergic reaction, and , she was taken to the procedure room. She was then placed comfortably in the prone position. Confirmation was assessed visually and verbally. She was then prepped with chlorhexidine with suitable drying time prior to draping. Site was marked at the L5-S1 interspace and the patient was sterilely draped. The skin was anesthetized with 1% lidocaine. Using an 18-gauge Tuohy needle, it was easily advanced through the anesthetized area using AP and lateral fluoroscopy to confirm depth. Using [id number] technique, a 7 cm CF drill space was found. Contrast was injected on the appropriate spread in both the AP and lateral views. Images were saved. Needle was removed after injection of 5 mm mixture of 2 mL of 1% lidocaine, 1 mL of normal saline, and 80 mg of Kenalog after a negative aspiration for heme or CSF. The needle was then removed and the area was cleansed and the dressing was placed. The patient was taken to the PACU for further postoperative care monitoring and return to inpatient status. She will then continue her current medications, resume her Lovenox and aspirin tomorrow, and will follow up with us as outpatient for continued pain relief. DICTATING PHYSICIAN: RABIA KWOK M.D. [id number] PHY#: [id number] ID: [id number] JOB#: [id number] ACCT: [id number] cc:RABIA KWOK M.D. >
[2017-10-26] MEDS: QUETIAPINE FUMARATE 25 MG TABLET PO SCH ×2 (11:47→21:29)
[2017-10-26] MEDS: DOCUSATE SODIUM 100 MG CAPSULE PO SCH ×2 (11:49→18:02)
[2017-10-26] MEDS: BISACODYL 5 MG TABEC PO SCH ×2 (11:49→18:02)
[2017-10-26] MEDS: CLONIDINE HCL 0.2 MG TABLET PO SCH ×2 (11:49→21:29)
[2017-10-26] MEDS: LACTULOSE SYRUP 20 GM/30 ML UDCUP PO SCH ×2 (11:49→21:43)
--- NOTE | 2017-10-26 13:09 | RADIOLOGY REPORT (SQ) ---
EXAM DESCRIPTION: INJ L/S SPINE EPI/SUB; GUIDANCE FLUOROSCOPIC COMPLETED DATE/TIME: 10/26/2017 12:46 pm REASON FOR STUDY: LUMBAR RADICULOPATHY COMPARISON: None. FLUOROSCOPY TIME: 0.1 minute. 3 images saved to PACS. TECHNIQUE: Intra-operative images acquired during surgical procedure to evaluate progress. NUMBER OF IMAGES: 3 images. LIMITATIONS: None. FINDINGS: Images of the lumbosacral spine acquired during the procedure. IMPRESSION: IMAGE(S) OBTAINED DURING PROCEDURE. COMMENT: Quality ID [id number]: Final reports for procedures using fluoroscopy that document radiation exp osure indices, or exposure time and number of fluorographic images (if radiation exposure indices are not available) Please consult full operative report of the attending physician for description of the procedure. TECHNICAL DOCUMENTATION: JOB ID: [id number] [employer]- All Rights Reserved Reading location - IP/workstation name: [email or web address]
--- NOTE | 2017-10-26 13:09 | RADIOLOGY REPORT (SQ) ---
EXAM DESCRIPTION: INJ L/S SPINE EPI/SUB; GUIDANCE FLUOROSCOPIC COMPLETED DATE/TIME: 10/26/2017 12:46 pm REASON FOR STUDY: LUMBAR RADICULOPATHY COMPARISON: None. FLUOROSCOPY TIME: 0.1 minute. 3 images saved to PACS. TECHNIQUE: Intra-operative images acquired during surgical procedure to evaluate progress. NUMBER OF IMAGES: 3 images. LIMITATIONS: None. FINDINGS: Images of the lumbosacral spine acquired during the procedure. IMPRESSION: IMAGE(S) OBTAINED DURING PROCEDURE. COMMENT: Quality ID [id number]: Final reports for procedures using fluoroscopy that document radiation exp osure indices, or exposure time and number of fluorographic images (if radiation exposure indices are not available) Please consult full operative report of the attending physician for description of the procedure. TECHNICAL DOCUMENTATION: JOB ID: [id number] [email or web address]- All Rights Reserved Reading location - IP/workstation name: [email or web address]
--- NOTE | 2017-10-26 13:51 | PDOC PROGRESS REPORT ---
Subjective Progress Note for:: 10/26/17 Subjective:: I spoke at length today to Dr. Cabrera from the oncology service. She had received the patient's biopsy results back which were inconclusive. The pathologist recommended an excisional biopsy. We discussed possibly getting Dr. Putnam to consider performing a biopsy however both of us felt like this was probably not a good idea. She has had an extensive workup. All of her test indicate some sort of primary metabolic bone issue or osteomyelitis. She has had extensive imaging studies and it does not appear that she has osteomyelitis. She has had a full body bone scan and an extensive workup all of which is been negative. We are going to run some blood tests today. I had a long talk with the patient as well as her [id number] today. I did give her the option of getting Dr. Putnam to consider doing the biopsy. After a long discussion the patient and the [id number] just want to focus on her rehabilitation. They feel comfortable that this is not an aggressive cancer at this point as we have been unable to locate it. They would like to get her on her feet and do not want to do anything to further debilitate her prior to performing further workup for all of this. We have agreed to run some labs this afternoon to rule out a primary or secondary parathyroid issue. Otherwise we will focus on getting her out of the hospital as soon as possible. She does have some bed offers and hopefully she can be discharged tomorrow morning. She plans to follow-up with her primary care physician who can reimage her. Dr. Cabrera and I both feel like if further workup is necessary she needs to be worked up at a tertiary center. I have discussed this with the patient and her [id number] and they both agree with this plan of care. The patient did go downstairs and have an epidural steroid injection today. She is on p.o. Dilaudid at this point for breakthrough pain and this is working a little better. She denies fever chills. No chest pain, shortness of breath or cough. No nausea vomiting or diarrhea. No urinary complaints. She just feels weak and continues to have back pain. Reason For Visit: INTRACTABLE BACK PAIN Physical Exam Vital Signs: Temp Pulse Resp BP Pulse Ox 98.3 F 79 18 142/63 H 92 10/26/17 07:32 10/26/17 07:32 10/26/17 07:32 10/26/17 07:32 10/26/17 07:32 Intake & Output 10/25/17 10/26/17 10/27/17 06:59 06:59 06:59 Intake Total 1710 2252 Balance 1710 2252 Weight 90 kg 92 kg General appearance: PRESENT: no acute distress, obese, well-developed, well- nourished Head exam: PRESENT: atraumatic, normocephalic Mouth exam: PRESENT: moist, tongue midline Neck exam: ABSENT: carotid bruit, JVD, lymphadenopathy, thyromegaly Respiratory exam: PRESENT: clear to auscultation honey. ABSENT: rales, rhonchi, wheezes Cardiovascular exam: PRESENT: RRR. ABSENT: diastolic murmur, rubs, systolic murmur GI/Abdominal exam: PRESENT: normal bowel sounds, soft. ABSENT: distended, guarding, mass, organolmegaly, rebound, tenderness Rectal exam: PRESENT: deferred Extremities exam: PRESENT: full ROM. ABSENT: calf tenderness, clubbing, pedal edema Neurological exam: PRESENT: alert, awake, oriented to person, oriented to place , oriented to time, oriented to situation, CN II-XII grossly intact. ABSENT: motor sensory deficit Psychiatric exam: PRESENT: appropriate affect, normal mood. ABSENT: homicidal ideation, suicidal ideation Skin exam: PRESENT: dry, intact, warm. ABSENT: cyanosis, rash Results Laboratory Results: 10/26/17 06:41 10/26/17 06:41 10/26/17 10/26/17 06:41 06:41 WBC 8.1 RBC 3.94 Hgb 11.8 L Hct 34.9 L MCV 89 MCH 30.0 MCHC 33.8 RDW 13.6 Plt Count 482 H Seg Neutrophils % 49.2 Lymphocytes % 31.7 Monocytes % 12.3 Eosinophils % 5.9 Basophils % 0.9 Absolute Neutrophils 4.0 Absolute Lymphocytes 2.6 Absolute Monocytes 1.0 Absolute Eosinophils 0.5 Absolute Basophils 0.1 Sodium 139.9 Potassium 4.5 Chloride 101 Carbon Dioxide 29 Anion Gap 10 BUN 15 Creatinine 0.49 L Est GFR ( Amer) > 60 Est GFR (Non-Af Amer) > 60 Glucose 129 H Calcium 9.2 Magnesium 1.9 Impressions: Lumbar Spine MRI 10/04/17 16:21 IMPRESSION: 1. FAIRLY EXTENSIVE ABNORMAL MARROW SIGNAL AND MARROW REPLACEMENT IN THE UPPER SACRUM MOST CONSISTENT WITH METASTATIC INVOLVEMENT. 2. MULTILEVEL CHRONIC DEGENERATIVE CHANGES IN THE LUMBAR SPINE DESCRIBED. Abdomen/Pelvis CT 10/04/17 19:35 IMPRESSION: 1. CORTICAL SCARRING IN THE KIDNEYS. NONOBSTRUCTING CALYCEAL CALCULUS IN THE RIGHT KIDNEY. 2. LOW-ATTENUATION LESION IN THE SPLEEN MOST LIKELY DUE TO A HEMANGIOMA. METASTATIC LESION WOULD BE LESS COMMON BUT NOT EXCLUDED. 3. FINDINGS IN THE LUMBAR SPINE AND SACRUM EVALUATED WITH SEPARATE MRI. 4. NO OTHER SIGNIFICANT FINDINGS IN THE ABDOMEN OR PELVIS. Chest CT 10/04/17 19:35 IMPRESSION: NORMAL CT OF THE CHEST WITH IV CONTRAST. Soft Tissue Neck CT 10/04/17 19:35 IMPRESSION: ESSENTIALLY NO THYROID TISSUE VISUALIZED, EITHER MARKEDLY ATROPHIC OR SURGICALLY ABSENT. NO OTHER SIGNIFICANT FINDING IN THE SOFT TISSUES OF THE NECK. Body Scan Nuclear Medicine 10/05/17 00:00 IMPRESSION: Increased activity in the sacrum worrisome for insufficiency fracture. Pelvis MRI 10/07/17 00:00 IMPRESSION: ABNORMAL APPEARANCE OF THE UPPER SACRUM DESCRIBED. NO CHANGE COMPARED TO THE PREVIOUS LUMBAR MRI ON 10/04/2017. STRESS FRACTURE IS POSSIBLE BUT METASTASIS NEEDS TO BE CONSIDERED WELL. Chest X-Ray 10/09/17 00:00 IMPRESSION: Moderate cardiomegaly. Otherwise unremarkable study Extremity Ultrasound 10/09/17 00:00 IMPRESSION: No discrete left upper thigh/ greater trochanter region mass is identified at ultrasound Fluoroscopy 10/13/17 00:00 IMPRESSION: Intra procedural imaging and fluoro Sacrum and Coccyx X-Ray 10/13/17 00:00 IMPRESSION: Intra procedural imaging and fluoro Pelvis CT 10/24/17 00:00 IMPRESSION: NO DRAINABLE FLUID COLLECTION/ABSCESS IDENTIFIED. SMALL APPEARANCE OF THE SACRUM WITH AREAS OF CORTICAL DISRUPTION SEEN ON PRIOR IMAGING. AGAIN DIFFERENTIAL INCLUDES INSUFFICIENCY FRACTURE, OSTEOMYELITIS, AND MALIGNANCY. INTERVAL SACRAL PLASTY CHANGE. Epidural Injection 10/26/17 00:00 IMPRESSION: IMAGE(S) OBTAINED DURING PROCEDURE. Guidance Fluoroscopy 10/26/17 00:00 IMPRESSION: IMAGE(S) OBTAINED DURING PROCEDURE. Assessment & Plan - Diagnosis (1) Intractable back pain Is this a current diagnosis for this admission?: Yes Plan: She had an epidural steroid injection today and her breakthrough medication was changed to p.o. Dilaudid by the pain management doctor yesterday. I certainly appreciate their assistance. Hopefully this will give her some relief. She will continue current plan of care. (2) Urinary tract infection Is this a current diagnosis for this admission?: Yes Plan: She is completed a course of antibiotic therapy. Urine culture ended up being normal. (3) Sacral fracture, closed Is this a current diagnosis for this admission?: Yes Plan: Status post kyphoplasty. We have not been able to locate an underlying malignancy. She would like to pursue further workup when she finishes her rehabilitation. Both Dr. Cabrera and myself feel as if this is appropriate. (4) Mass of left thigh Is this a current diagnosis for this admission?: Yes Plan: Dr. Putnam feels as if this is not an issue and possibly a lipoma. (5) Hypertension Qualifiers: Hypertension type: essential hypertension Qualified Code(s): I10 - Essential (primary) hypertension Is this a current diagnosis for this admission?: Yes Plan: Stable (6) Diabetes mellitus Qualifiers: Diabetes mellitus type: type 2 Is this a current diagnosis for this admission?: Yes Plan: Stable on current regimen (7) Anemia Qualifiers: Anemia type: unspecified type Qualified Code(s): D64.9 - Anemia, unspecified Is this a current diagnosis for this admission?: Yes Plan: Secondary to hemodilution and likely an element of chronic disease. Stable (8) Hyperkalemia Is this a current diagnosis for this admission?: Yes Plan: Resolved. 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 She has had a rather extensive workup here in the hospital all of which is inconclusive for any sort of malignancy. At this point I think it is appropriate to focus on her rehabilitation. She can follow-up with her primary care physician and be followed quite closely as an outpatient. If she develops further problems would recommend evaluation at a tertiary center. - Time Time Spent with patient: 25-34 minutes - Inpatient Certification Medical Necessity: Other - Inpatient hospitalization remains necessary. We are going to draw some lab work today. Otherwise I plan to discharge her to subacute rehabilitation tomorrow.
[2017-10-26] MEDS: METOPROLOL TARTRATE 100 MG TABLET PO SCH (18:02)
[2017-10-26] MEDS: AMLODIPINE BESYLATE 10 MG TABLET PO SCH (18:02)
[2017-10-26] MEDS: INSULIN LISPRO 100 UNIT/ML 3 ML VIAL SUBCUT PRN ×2 (18:02→21:37)
[2017-10-26] MEDS: ATORVASTATIN CALCIUM 10 MG TABLET PO SCH (21:30)
[2017-10-27] MEDS: GABAPENTIN 400 MG CAPSULE PO SCH (05:58)
[2017-10-27] MEDS: LEVOTHYROXINE SODIUM 0.025 MG TABLET PO SCH (05:58)
[2017-10-27] MEDS: LEVOTHYROXINE SODIUM 0.112 MG TABLET PO SCH (05:58)
[2017-10-27] MEDS: LANSOPRAZOLE 15 MG TAB.RAP.DR PO SCH (05:59)
[2017-10-27] MEDS: HYDROMORPHONE HCL 2 MG TABLET PO PRN ×2 (06:04→12:06)
[2017-10-27] MEDS: INSULIN LISPRO 100 UNIT/ML 3 ML VIAL SUBCUT PRN ×2 (08:10→12:10)
[2017-10-27 08:21] VITALS: BP 153/63
--- NOTE | 2017-10-27 08:46 | PDOC TRANSFER SUMMARY ---
General - Admit/Disc Date/PCP Admission Date/Primary Care Provider: 10/04/17 22:26 KATHY LOPEZ MD [facility] Oncologist: Dr Cabrera Discharge Date: 10/27/17 - Discharge Diagnosis (1) Intractable back pain Is this a current diagnosis for this admission?: Yes (2) Urinary tract infection Is this a current diagnosis for this admission?: Yes (3) Sacral fracture, closed Is this a current diagnosis for this admission?: Yes (4) Mass of left thigh Is this a current diagnosis for this admission?: Yes (5) Hypertension Is this a current diagnosis for this admission?: Yes (6) Diabetes mellitus Is this a current diagnosis for this admission?: Yes (7) Anemia Is this a current diagnosis for this admission?: Yes (8) Hyperkalemia Is this a current diagnosis for this admission?: Yes (9) 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 Is this a current diagnosis for this admission?: Yes - Additional Information Resuscitation Status: Full Code Prescriptions: Fentanyl [Duragesic 100 Mcg/Hr Transdermal Patch] 1 each TD Q3DAYS 30 Days #10 patch.td72 Fentanyl [Duragesic 25 mcg/hr Transdermal Patch] 1 each TD Q3DAYS 10 Days #10 patch.td72 Hydromorphone HCl [Dilaudid 2 mg Tablet] 4 mg PO Q4HP PRN #12 tablet PRN Reason: Fentanyl [Duragesic 100 Mcg/Hr Transdermal Patch] 1 each TD Q3D@1000 #2 patch.td72 Gabapentin [Neurontin 400 mg Capsule] 400 mg PO Q8 30 Days #90 capsule Lactulose [Cephulac Syrup 20 gm/30 ml Udcup] 20 gm PO Q12 30 Days #450 ml Polyethylene Glycol 3350 [Miralax Powder 17 gm/Packet] 17 gm PO DAILYP PRN #30 powd.pack PRN Reason: Quetiapine Fumarate [Seroquel 25 mg Tablet] 50 mg PO Q12 30 Days #60 tablet Home Medications: Amlodipine Besylate [Norvasc 10 mg Tablet] 10 mg PO DAILY 10/05/17 Aspirin 81 mg PO DAILY 10/05/17 Clonidine HCl [Catapres 0.2 mg Tablet] 0.2 mg PO Q12 10/05/17 Cyclobenzaprine HCl [Flexeril 10 mg Tablet] 10 mg PO TIDP PRN 10/05/17 Ergocalciferol (Vitamin D2) [Vitamin D2] 50,000 unit PO .QWEEKLY 10/05/17 Gabapentin 400 mg PO Q6 10/05/17 Glimepiride 4 mg PO DAILY 10/05/17 Levothyroxine Sodium [Levo-T] 137 mcg PO DAILY 10/05/17 Meloxicam [Mobic] 7.5 mg PO QAM 10/05/17 Metformin HCl [Glucophage 500 mg Tablet] 500 mg PO BIDBL 10/05/17 Metoprolol Tartrate [Lopressor 100 mg Tablet] 100 mg PO DAILY 10/05/17 Pravastatin Sodium [Pravachol] 40 mg PO DAILY 10/05/17 Quetiapine Fumarate 25 mg PO DAILY 10/05/17 Metformin HCl [Glucophage 500 mg Tablet] 1,000 mg PO QHS 10/06/17 Fentanyl [Duragesic 100 Mcg/Hr Transdermal Patch] 1 each TD Q3DAYS 30 Days #10 patch.td72 10/22/17 Fentanyl [Duragesic 25 mcg/hr Transdermal Patch] 1 each TD Q3DAYS 10 Days #10 patch.td72 10/22/17 Gabapentin [Neurontin 400 mg Capsule] 400 mg PO Q8 30 Days #90 capsule 10/22/17 Lactulose [Cephulac Syrup 20 gm/30 ml Udcup] 20 gm PO Q12 30 Days #450 ml Quetiapine Fumarate [Seroquel 25 mg Tablet] 50 mg PO Q12 30 Days #60 tablet 08/06 Albuterol Sulfate [Proair HFA Inhalation Aerosol 8.5 gm MDI] 1 puff IH Q6HP PRN hfa.aer.ad 10/27/17 Bisacodyl [Dulcolax 10 mg Supp.rect] 10 mg TX DAILYP PRN supp.rect 10/27/17 Bisacodyl [Dulcolax 5 mg Tablet] 5 mg PO BID tabec 10/27/17 Docusate Sodium [Colace 100 mg Capsule] 100 mg PO BID capsule 10/27/17 Fentanyl [Duragesic 100 Mcg/Hr Transdermal Patch] 1 each TD Q3D@1000 #2 patch.td72 10/27/17 Hydromorphone HCl [Dilaudid 2 mg Tablet] 4 mg PO Q4HP PRN #12 tablet 10/27/17 Insulin Lispro [Humalog Insulin (Lispro) 100 unit/mL] 0 - 12 unit SUBCUT ACHSP PRN unit 10/27/17 Lansoprazole [Prevacid 15 mg Odt Tablet] 15 mg PO Q6AM tab.rissa. 10/27/17 Polyethylene Glycol 3350 [Miralax Powder 17 gm/Packet] 17 gm PO DAILYP PRN #30 powd.pack 10/27/17 History of Present Illness Admission Date/PCP: 10/04/17 22:26 KATHY LOPEZ MD History of Present Illness: BELLO DIAZ is a 72 year old female who presented to the emergency room with intractable back pain Hospital Course Hospital Course: Please see dictated discharge summary from 10/23/2017. This is an addendum to that summary. The patient was discharged to subacute rehabilitation on 10/23/2017. The family was quite concerned and wanted a second opinion from orthopedic surgery prior to her discharge. Her discharge was canceled. Orthopedic surgery evaluated the patient. They were in concurrence that there was nothing from an orthopedic standpoint to do. At this point going forward she will need to pursue further workup as an outpatient. Pain management will be rodas. Over the past couple of days pain management has come back to see the patient. She will continue her fentanyl patch. Her oxycodone was stopped and she was started on p.o. hydromorphone. Yesterday on 10/26/2017 the patient had an epidural steroid injection performed by pain management. This morning she is doing much better. She will be transferred to subacute rehabilitation today in stable condition. Again she will need close outpatient follow-up and she should be reimaged when she gets out of rehab. If the remaining concerns for underlying malignancy then the recommendation from all physicians that have been involved in her care is that she get evaluated at a tertiary center. Otherwise no changes have been made to the plan of care as outlined in my discharge summary on 10/23/2017. Physical Exam Vital Signs: Temp Pulse Resp BP Pulse Ox 98.0 F 76 18 153/63 H 96 10/27/17 08:02 10/27/17 08:02 10/27/17 08:02 10/27/17 08:02 10/27/17 08:02 Intake & Output 10/26/17 10/27/17 10/28/17 06:59 06:59 06:59 Intake Total 2252 60 Balance 2252 60 Weight 92 kg General appearance: PRESENT: no acute distress, obese, well-developed, well- nourished Head exam: PRESENT: atraumatic, normocephalic Ear exam: PRESENT: normal external ear exam Neck exam: ABSENT: carotid bruit, JVD, lymphadenopathy, thyromegaly Respiratory exam: PRESENT: clear to auscultation honey. ABSENT: rales, rhonchi, wheezes Cardiovascular exam: PRESENT: RRR. ABSENT: diastolic murmur, rubs, systolic murmur Pulses: PRESENT: normal dorsalis pedis pul GI/Abdominal exam: PRESENT: normal bowel sounds, soft. ABSENT: distended, guarding, mass, organolmegaly, rebound, tenderness Rectal exam: PRESENT: deferred Extremities exam: PRESENT: full ROM. ABSENT: calf tenderness, clubbing, pedal edema Neurological exam: PRESENT: alert, awake, oriented to person, oriented to place , oriented to time, oriented to situation, CN II-XII grossly intact. ABSENT: motor sensory deficit Psychiatric exam: PRESENT: appropriate affect, normal mood. ABSENT: homicidal ideation, suicidal ideation Skin exam: PRESENT: dry, intact, warm. ABSENT: cyanosis, rash Results Laboratory Results: 10/26/17 06:41 10/26/17 06:41 10/26/17 10/26/17 10/26/17 14:55 14:55 14:55 Ionized Calcium [place] 1.10 L Phosphorus 4.3 PTH Intact 21.4 Impressions: Lumbar Spine MRI 10/04/17 16:21 IMPRESSION: 1. FAIRLY EXTENSIVE ABNORMAL MARROW SIGNAL AND MARROW REPLACEMENT IN THE UPPER SACRUM MOST CONSISTENT WITH METASTATIC INVOLVEMENT. 2. MULTILEVEL CHRONIC DEGENERATIVE CHANGES IN THE LUMBAR SPINE DESCRIBED. Abdomen/Pelvis CT 10/04/17 19:35 IMPRESSION: 1. CORTICAL SCARRING IN THE KIDNEYS. NONOBSTRUCTING CALYCEAL CALCULUS IN THE RIGHT KIDNEY. 2. LOW-ATTENUATION LESION IN THE SPLEEN MOST LIKELY DUE TO A HEMANGIOMA. METASTATIC LESION WOULD BE LESS COMMON BUT NOT EXCLUDED. 3. FINDINGS IN THE LUMBAR SPINE AND SACRUM EVALUATED WITH SEPARATE MRI. 4. NO OTHER SIGNIFICANT FINDINGS IN THE ABDOMEN OR PELVIS. Chest CT 10/04/17 19:35 IMPRESSION: NORMAL CT OF THE CHEST WITH IV CONTRAST. Soft Tissue Neck CT 10/04/17 19:35 IMPRESSION: ESSENTIALLY NO THYROID TISSUE VISUALIZED, EITHER MARKEDLY ATROPHIC OR SURGICALLY ABSENT. NO OTHER SIGNIFICANT FINDING IN THE SOFT TISSUES OF THE NECK. Body Scan Nuclear Medicine 10/05/17 00:00 IMPRESSION: Increased activity in the sacrum worrisome for insufficiency fracture. Pelvis MRI 10/07/17 00:00 IMPRESSION: ABNORMAL APPEARANCE OF THE UPPER SACRUM DESCRIBED. NO CHANGE COMPARED TO THE PREVIOUS LUMBAR MRI ON 10/04/2017. STRESS FRACTURE IS POSSIBLE BUT METASTASIS NEEDS TO BE CONSIDERED WELL. Chest X-Ray 10/09/17 00:00 IMPRESSION: Moderate cardiomegaly. Otherwise unremarkable study Extremity Ultrasound 10/09/17 00:00 IMPRESSION: No discrete left upper thigh/ greater trochanter region mass is identified at ultrasound Fluoroscopy 10/13/17 00:00 IMPRESSION: Intra procedural imaging and fluoro Sacrum and Coccyx X-Ray 10/13/17 00:00 IMPRESSION: Intra procedural imaging and fluoro Pelvis CT 10/24/17 00:00 IMPRESSION: NO DRAINABLE FLUID COLLECTION/ABSCESS IDENTIFIED. SMALL APPEARANCE OF THE SACRUM WITH AREAS OF CORTICAL DISRUPTION SEEN ON PRIOR IMAGING. AGAIN DIFFERENTIAL INCLUDES INSUFFICIENCY FRACTURE, OSTEOMYELITIS, AND MALIGNANCY. INTERVAL SACRAL PLASTY CHANGE. Epidural Injection 10/26/17 00:00 IMPRESSION: IMAGE(S) OBTAINED DURING PROCEDURE. Guidance Fluoroscopy 10/26/17 00:00 IMPRESSION: IMAGE(S) OBTAINED DURING PROCEDURE. Transfer Plan - Disposition Transfer Plan: She will be transferred to subacute rehabilitation today in stable condition. - Time Spent with Patient Time spent with patient: Greater than 30 Minutes Qualifiers - * PATIENT BEING DISCHARGED WITH ANY OF THE FOLLOWING DIAGNOSIS: No Plan Time Spent: Greater than 30 Minutes
[2017-10-27] MEDS: BISACODYL 5 MG TABEC PO SCH (09:29)
[2017-10-27] MEDS: QUETIAPINE FUMARATE 25 MG TABLET PO SCH (09:29)
[2017-10-27] MEDS: CLONIDINE HCL 0.2 MG TABLET PO SCH (09:29)
[2017-10-27] MEDS: ENOXAPARIN SODIUM INJ 40 MG/0.4 ML DISP.SYRIN SUBCUT SCH (09:30)
[2017-10-27] MEDS: DOCUSATE SODIUM 100 MG CAPSULE PO SCH (09:30)
[2017-10-27] MEDS: LACTULOSE SYRUP 20 GM/30 ML UDCUP PO SCH (09:34)
[2017-10-27] MEDS ORDERED: QUETIAPINE FUMARATE 100 MG TABLET PO SCH (22:00)
== END 2017-10-27 13:25 | DRG 478 ==
LOC: ER 15:33 → INTOOBSV 22:26 → OBSVTOIN 22:26 → EH 22:26 → 5 23:55 → OBSVTOIN 10-06 11:46 → 2S 10-22 04:10
PROVIDERS: ADMIT Internal Medicine; ATTEND Internal Medicine
PROC: 0Q9 Lower Bones, Drainage (ICD-10-PCS; 2017-10-13)
PROC: 0QU13JZ Supplement Sacrum with Synthetic Substitute, Percutaneous Approach (ICD-10-PCS; 2017-10-13)
PROC: 0QS13ZZ Reposition Sacrum, Percutaneous Approach (ICD-10-PCS; principal; 2017-10-13 09:30)
PROC: 3E0S33Z Introduction of Anti-inflammatory into Epidural Space, Percutaneous Approach (ICD-10-PCS; 2017-10-26)
DX: M48.48XA Fatigue fracture of vertebra, sacral and sacrococcygeal region, initial encounter for fracture (principal); N39.0 Urinary tract infection, site not specified; R52 Pain, unspecified; D17.24 Benign lipomatous neoplasm of skin and subcutaneous tissue of left leg; I10 Essential (primary) hypertension; E11.9 Type 2 diabetes mellitus without complications; M51.16 Intervertebral disc disorders with radiculopathy, lumbar region; K21.9 Gastro-esophageal reflux disease without esophagitis; T40.605A Adverse effect of unspecified narcotics, initial encounter; E66.9 Obesity, unspecified; R63.4 Abnormal weight loss; M12.9 Arthropathy, unspecified; Z16.23 Resistance to quinolones and fluoroquinolones; E89.0 Postprocedural hypothyroidism; D64.9 Anemia, unspecified; E87.5 Hyperkalemia; K59.00 Constipation, unspecified
CPT/HCPCS: 00630; 36415; 62322; 70491; 71046; 71260; 72158; 72193; 72195; 72220; 74177; 76881; 77001; 78306; 80048; 80053; 81001; 82330; 82340; 82378; 82652; 82784; 82962; 83735; 83883; 83970; 84100; 84443; 85025; 85027; 85610; 85730; 86301; 86304; 86320; 87086; 88184; 88185; 88305; 88341; 88342; 93005; 93010; 96372; 96374; 96375; 99285; A9270-GY; A9561; G0378; G8978-GP; G8979-GP; J0690; J0696; J1100; J1170; J1650; J1815; J1885; J1956; J2250; J2270; J2704; J3010; J3490; Q9966; Q9969